=== PATIENT | female | born 1945 | race Caucasian/White ===

== ENCOUNTER 2019-10-30 14:59 | Inpatient (IN) | payer MEDICARE ==
[~2019-10-30] VITALS: Ht 160 cm; Wt 147.0 kg
[2019-10-30 15:05] VITALS: BP 119/74
--- NOTE | 2019-10-30 15:05 | NUR ---
ED Nurse Note: Pt brought in by ambulance from [facility] c/o CP that radiates to left arm/back/neck since this morning. Pt c/o shortness of breath. Albuterol and aspirin given by EMS with no relief. Pt denies n/v. Respirations even and minimall labored on room air. Vitals stable as documented.
--- NOTE | 2019-10-30 15:12 | Emergency Room Report ---
History of Present Illness General Chief Complaint: Chest Pain Source: Patient, EMS Present Illness HPI Is a 74-year-old female presents after increased chest discomfort. Patient gradual onset of symptoms. Reports of increased left-sided shoulder pain as well as increased pain with deep breathing. Had not been vomiting. Reports having chronic nonproductive cough. She states she is a former smoker. Denies any vomiting or diarrhea. Had not been having any shortness of breath increased leg swelling. Patient had been seen at her doctor's office and was brought in by EMS.History of hypothyroid. Patient states he also had a prior history of AVM. She denies any recent fever. Primarily complains of low back pain which is worse with deep breath. Allergies: Coded Allergies: No Known Allergies (Unverified , 10/30/19) Patient History Past Medical History: see triage record Now: No Reviewed Nursing Documentation: PMH: Agreed; PSxH: Agreed Nursing Documentation-PMH Hx Hypertension: Yes - HIGH CHOLESTEROL Review of Systems All Other Systems: negative except mentioned in HPI Physical Exam Vital Signs Date Time Temp Pulse Resp B/P (MAP) Pulse Ox O2 Delivery O2 Flow Rate FiO2 10/30/19 14:50 98.4 100 20 112/70 (84) 98 Room Air Sp02 EP Interpretation: reviewed, normal General Appearance: normal inspection, well appearing, alert, GCS 15, obese, Chronically Ill Head: atraumatic ENT: normal ENT inspection, hearing grossly normal, normal voice Neck: normal inspection, full range of motion, supple, no bony tend Respiratory: normal inspection, no respiratory distress, no retraction, wheezing Cardiovascular #1: normal peripheral pulses, regular rate, rhythm, edema - Trace bilateral pedal Gastrointestinal: normal inspection, normal bowel sounds, non tender, soft, no guarding, no hernia Genitourinary: no CVA tenderness Musculoskeletal: normal inspection, back normal, normal range of motion Neurologic: alert, motor strength/tone normal, oriented x3, responsive, speech normal, normal inspection Psychiatric: normal inspection, judgement/insight normal, mood/affect normal Skin: no rash Medical Decision Making Diagnostic Impression: Primary Impression: Pancreatitis Additional Impressions: Presence of IVC filter Hypothyroid ER Course Patient presented for chest discomfort. Differential diagnosis include was not limited to pulmonary embolism, pneumonia, bronchitis, myocardial infarction among others. Because of complexity of patient's case laboratory tests and imaging studies were ordered.Patient laboratory testing was remarkable for some elevation of the lipase consistent with acute pancreatitis. Patient does have some risk factor for pulmonary embolism and has parent IVC filter. CT imaging read by radiology showed multiple findings see radiology report for full details. Given patient's prior history of intracranial hemorrhage patient will be not started on anticoagulation at this time. Patient was given IV fluids as well as IV pain medications. Dr. Hu was contacted for [facility] for inpatient management due to panel physician. Labs Test 10/30/19 15:30 White Blood Count 15.5 K/UL (4.8-10.8) Red Blood Count 4.80 M/UL (4.20-5.40) Hemoglobin 14.6 G/DL (12.0-16.0) Hematocrit 43.9 % (37.0-47.0) Mean Corpuscular Volume 91 FL (80-99) Mean Corpuscular Hemoglobin 30.4 PG (27.0-31.0) Mean Corpuscular Hemoglobin Concent 33.3 G/DL (32.0-36.0) Red Cell Distribution Width 12.4 % (11.6-14.8) Platelet Count 227 K/UL (150-450) Mean Platelet Volume 8.2 FL (6.5-10.1) Neutrophils (%) (Auto) 81.3 % (45.0-75.0) Lymphocytes (%) (Auto) 10.1 % (20.0-45.0) Monocytes (%) (Auto) 6.3 % (1.0-10.0) Eosinophils (%) (Auto) 1.8 % (0.0-3.0) Basophils (%) (Auto) 0.6 % (0.0-2.0) D-Dimer 1.36 mg/L FEU (0.00-0.49) Sodium Level 141 MMOL/L (136-145) Potassium Level 4.3 MMOL/L (3.5-5.1) Chloride Level 102 MMOL/L (98-107) Carbon Dioxide Level 28 MMOL/L (21-32) Anion Gap 11 mmol/L (5-15) Blood Urea Nitrogen 20 mg/dL (7-18) Creatinine 1.1 MG/DL (0.55-1.30) Estimat Glomerular Filtration Rate 48.5 mL/min (>60) Glucose Level 118 MG/DL (74-106) Calcium Level 9.3 MG/DL (8.5-10.1) Total Bilirubin 0.4 MG/DL (0.2-1.0) Aspartate Amino Transf (AST/SGOT) 17 U/L (15-37) Alanine Aminotransferase (ALT/SGPT) 15 U/L (12-78) Alkaline Phosphatase 103 U/L (46-116) Troponin I 0.010 ng/mL (0.000-0.056) Pro-B-Type Natriuretic Peptide 382 pg/mL (0-125) Total Protein 7.5 G/DL (6.4-8.2) Albumin 3.2 G/DL (3.4-5.0) Globulin 4.3 g/dL Albumin/Globulin Ratio 0.7 (1.0-2.7) Lipase 1064 U/L (73-393) Last Vital Signs Date Time Temp Pulse Resp B/P (MAP) Pulse Ox O2 Delivery O2 Flow Rate FiO2 10/30/19 14:50 98.4 100 20 112/70 (84) 98 Room Air Status: improved Disposition: ADMITTED INPATIENT Condition: Stable Mika Nolan MD Oct 30, 2019 15:12
[2019-10-30] MEDS ORDERED: Albuterol ud Inhalation HHN ONE (15:15)
[2019-10-30] MEDS ORDERED: Aspirin Baby 81mg ORAL ONE (15:30)
[2019-10-30 15:58] LABS: BASOPHILS % (AUTO) 0.6 % (0.0-2.0); EOSINOPHILS % (AUTO) 1.8 % (0.0-3.0); HEMATOCRIT 43.9 % (37.0-47.0); HEMOGLOBIN 14.6 G/DL (12.0-16.0); LYMPHOCYTES % (AUTO) 10.1 % (20.0-45.0); MEAN CORPUSCULAR VOLUME 91 FL (80-99); MONOCYTES % (AUTO) 6.3 % (1.0-10.0); NEUTROPHILS % (AUTO) 81.3 % (45.0-75.0); PLATELET COUNT 227 K/UL (150-450); RED CELL DISTRIBUTION WIDTH 12.4 % (11.6-14.8); WHITE BLOOD COUNT 15.5 K/UL (4.8-10.8)
[2019-10-30 15:59] LABS: ANION GAP 11 mmol/L (5-15); BLOOD UREA NITROGEN 20 mg/dL (7-18); CALCIUM 9.3 MG/DL (8.5-10.1); CARBON DIOXIDE 28 MMOL/L (21-32); CHLORIDE 102 MMOL/L (98-107); CREATININE 1.1 MG/DL (0.55-1.30); POTASSIUM 4.3 MMOL/L (3.5-5.1); SODIUM 141 MMOL/L (136-145)
--- NOTE | 2019-10-30 16:01 | Diagnostic Imaging Report ---
Indication: Chest pain Technique: One view of the chest Comparison: none Findings: The heart is enlarged. There is mild interstitial congestion. No focal airspace consolidation. No definite effusions Impression: . Cardiomegaly. Mild interstitial congestion
[2019-10-30 16:14] LABS: ALANINE AMINOTRANSFERASE 15 U/L (12-78); ALBUMIN 3.2 G/DL (3.4-5.0); ALBUMIN/GLOBULIN RATIO 0.7 (1.0-2.7); ALKALINE PHOSPHATASE 103 U/L (46-116); ASPARTATE AMINO TRANSFERASE 17 U/L (15-37); BILIRUBIN,TOTAL 0.4 MG/DL (0.2-1.0)
[2019-10-30] MEDS ORDERED: Morphine Sulfate 4mg/ml Inj (IV USE ONLY) IVP ONE (16:30)
[2019-10-30] MEDS ORDERED: Omnipaque-300 100ml vial INJ PRN (16:45)
--- NOTE | 2019-10-30 16:56 | NUR ---
ED Nurse Note: Pt in CT
--- NOTE | 2019-10-30 17:16 | NUR ---
ED Nurse Note: Pt started to desaturate on room air to the 70s. Placed pt on 3 L NC --> O2 saturation now 92%.
[2019-10-30] MEDS ORDERED: SYNTHROID75 MCG ORAL (17:20)
[2019-10-30] MEDS ORDERED: ATORVASTATIN CA10 MG ORAL (17:20)
[2019-10-30] MEDS ORDERED: VITAMIN D310 MC1 PO (17:20)
[2019-10-30] MEDS ORDERED: MELOXICAM15 MG PO (17:25)
[2019-10-30] MEDS ORDERED: GABAPENTIN300 MG ORAL (17:25)
[2019-10-30] MEDS ORDERED: CYMBALTA60 MG ORAL (17:25)
[2019-10-30] MEDS ORDERED: IBUPROFEN600 MG ORAL (17:25)
[2019-10-30] MEDS ORDERED: ATORVASTATIN CA20 MG ORAL (17:25)
[2019-10-30] MEDS ORDERED: MYRBETRIQ50 MG PO (17:25)
--- NOTE | 2019-10-30 17:28 | Diagnostic Imaging Report ---
Clinical Indication: Abdominal pain Technique: No oral contrast utilized, per emergency room physician request IV administration nonionic contrast. Venous phase spiral acquisition obtained through the abdomen and pelvis. Multiplanar reconstructions were generated. Total dose length product 1869 mGycm. CTDIvol(s) 34 mGy. Dose reduction achieved using automated exposure control Comparison: none Findings: Numerous large abdominal and pelvic wall and flank collateral veins are demonstrated. There is marked narrowing of the bilateral external iliac arteries, and absence of the bilateral common iliac arteries. There is an inferior vena cava filter. There is absence of the inferior vena cava immediately below the filter. However, the lumen of the inferior vena cava or the filter is is presumably patent, opacified with contrast. There is mild gaseous distention of the sigmoid colon, without evidence of downstream obstruction. The appendix is not definitely identified, but no findings to suggest acute appendicitis are evident. No evidence of colonic diverticulosis or diverticulitis. No small bowel distention. No free or loculated intraperitoneal gas or fluid is evident. The gallbladder is distended. No gallstones. No biliary ductal dilatation. Liver demonstrates minimal fatty infiltration. No focal liver lesions. No biliary ductal dilatation. Pancreas is unremarkable. The spleen demonstrates a granulomatous calcification in the upper pole. The adrenals are hypertrophied. The right adrenal demonstrates a somewhat ill-defined 2.6 x 1.6 cm mass. The left adrenal demonstrates an ill-defined 1.4 x 1.6 cm mass. No retroperitoneal or mesenteric mass or adenopathy. The right kidney is unremarkable. The left kidney demonstrates a complex parapelvic cyst. The uterus is unremarkable. There is a calcification in the left ovary.. The bones are unremarkable except for a bone island in the right femoral head and considerable degenerative spondylosis changes. The heart is enlarged. The tip of a central venous catheter is seen at the cavoatrial junction. The lung bases demonstrate diffuse groundglass opacity. There are also some atelectatic changes. There are mitral annular calcifications. Impression: No acute abnormality Inferior vena cava filter. 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 Extensive abdominal wall collaterals noted. Mild fatty liver Bilateral adrenal masses, possibly adenomas. Consider adrenal protocol MRI for better characterization Cardiomegaly or graft cardiomegaly Basilar groundglass opacities, may reflect pulmonary edema. There are also basilar pulmonary atelectatic changes Incidental findings as noted, including central venous catheter, right femoral head bone island,, left ovarian calcification, evidence of old granulomatous disease within the spleen This agrees with the preliminary interpretation provided overnight by [facility] teleradiology service. The CT scanner at [facility] is accredited by the [employer] and the scans are performed using protocols designed to limit radiation exposure to as low as reasonably achievable to attain images of sufficient resolution adequate for diagnostic evaluation.
[2019-10-30] MEDS ORDERED: Ampicillin/Sulbactam Sod 3 GM in NS 110 ML IVPB ONE (17:45)
[2019-10-30 18:00] VITALS: BP 123/75
[2019-10-30] MEDS ORDERED: Milk of Magnesia 30ml Ud ORAL PRN (18:30)
[2019-10-30] MEDS ORDERED: Miralax 17gm pkt ORAL PRN (18:30)
--- NOTE | 2019-10-30 18:31 | NUR ---
ED Nurse Note: US @ bedside
[2019-10-30] MEDS ORDERED: Pantoprazole Inj IV SCH (19:08)
--- NOTE | 2019-10-30 19:15 | NUR ---
HAND-OFF: Report given to OCSAR Alejandro. Pt is in stable condition; plan of care endorsed.
[2019-10-30 19:16] VITALS: BP 128/80
--- NOTE | 2019-10-30 19:16 | NUR ---
ED Nurse Note: Received report from Helen MOORE. Pt alert and oriented, able to walk with walker to the restroom.
[2019-10-30] MEDS ORDERED: Albuterol/Ipratropium 3ml neb HHN PRN (19:45)
[2019-10-30] MEDS ORDERED: Omnipaque 350 100ml vial INJ PRN (19:45)
--- NOTE | 2019-10-30 19:50 | History and Physical ---
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 The pain is centrally located worse with breathing. She is tachypneic due to the pain but not short of breath. She denies any orthopnea or lower extremity swelling. She has never had this type of pain before. She states that the pain radiates to her back. She denies any alcohol use recent trauma. In the ER the patient afebrile with pulse up to 100 respirations in 20s, blood pressure normotensive, saturating 99% on 3 L nasal cannula. CBC showed WBC 15.5 lipase elevated to 1064. Chemistry showed normal LFTs and alk phos. Initial troponin negative. EKG showed normal sinus rhythm with prolonged QTC ( 490), d-dimer positive. Chest x-ray showed possible pulmonary edema. BNP showed 382. CT abdomen showed bilateral adrenal adenomas, constipation, calcified cystic lesion of the left ovary recommending further ultrasound. Abdominal ultrasound right upper quadrant negative for cholecystitis. But did have positive Robins sign. Allergies none Past medical history see HPI Medications Lipitor, Synthroid 75 mcg, Cymbalta, gabapentin Surgical history left salivary gland cyst removal Social history denies tobacco alcohol or drug use Family history pancreatic cancer of her mother Allergies: Coded Allergies: No Known Allergies (Unverified , 10/30/19) Medication History Scheduled Atorvastatin Calcium* (Lipitor*), Unknown Dose ORAL BEDTIME, (Reported) Atorvastatin Calcium* (Atorvastatin Calcium*), 20 MG ORAL BEDTIME, (Reported) Cholecalciferol (Vitamin D3) (Vitamin D3), Unknown Dose PO DAILY, (Reported) Duloxetine Hcl* (Cymbalta*), 60 MG ORAL DAILY, (Reported) Levothyroxine Sodium* (Synthroid*), 100 MCG ORAL DAILY, (Reported) Meloxicam* (Meloxicam*), 15 MG PO DAILY, (Reported) Miscellaneous Medications Gabapentin* (Gabapentin*), 300 MG ORAL, (Reported) Ibuprofen* (Motrin*), 600 MG ORAL, (Reported) Mirabegron (Myrbetriq), 50 MG PO, (Reported) Patient History Healthcare decision maker n Resuscitation status Advanced Directive on File Review of Systems All Other Systems: negative except mentioned in HPI - Endorses pleuritic chest pain, tachypnea, back pain. Physical Exam Physical Exam Narrative General: WDWN female in NAD, A&O x 4 HEENT: Normocephalic cephalic atraumatic, pupils equal round reactive to light and accommodation, nares patent and no symmetrical, no tonsillar exudates, mucous membranes moist CV: Regular rate regular rhythm, no murmurs, rubs, or gallops Pulm: Lungs clear to auscultation bilaterally. No wheezes, rhonchi, or rales. Tachypnea GI: Soft, nontender, nondistended, bowel sounds present Neuro: CN 2-12 intact bilaterally, no focal signs. Ext: Trace lower extremity edema bilaterally Skin: no rashes lesions or ulcers Msk: Joints symmetrical in upper extremity and lower extremity bilaterally, no joint swelling. Lymph: No lymphadenopathy in upper extremity and lower extremity Last 24 Hour Vital Signs Date Time Temp Pulse Resp B/P (MAP) Pulse Ox O2 Delivery O2 Flow Rate FiO2 10/30/19 18:00 98.0 85 27 123/75 95 Nasal Cannula 3.0 10/30/19 15:35 82 27 Room Air 21 10/30/19 15:28 75 19 100 Room Air 21 82 27 92 10/30/19 15:05 98.2 82 20 119/74 98 Room Air 10/30/19 14:50 98.4 100 20 112/70 (84) 98 Room Air Laboratory Tests Test 10/30/19 15:30 White Blood Count 15.5 K/UL (4.8-10.8) H Red Blood Count 4.80 M/UL (4.20-5.40) Hemoglobin 14.6 G/DL (12.0-16.0) Hematocrit 43.9 % (37.0-47.0) Mean Corpuscular Volume 91 FL (80-99) Mean Corpuscular Hemoglobin 30.4 PG (27.0-31.0) Mean Corpuscular Hemoglobin Concent 33.3 G/DL (32.0-36.0) Red Cell Distribution Width 12.4 % (11.6-14.8) Platelet Count 227 K/UL (150-450) Mean Platelet Volume 8.2 FL (6.5-10.1) Neutrophils (%) (Auto) 81.3 % (45.0-75.0) H Lymphocytes (%) (Auto) 10.1 % (20.0-45.0) L Monocytes (%) (Auto) 6.3 % (1.0-10.0) Eosinophils (%) (Auto) 1.8 % (0.0-3.0) Basophils (%) (Auto) 0.6 % (0.0-2.0) D-Dimer 1.36 mg/L FEU (0.00-0.49) H Sodium Level 141 MMOL/L (136-145) Potassium Level 4.3 MMOL/L (3.5-5.1) Chloride Level 102 MMOL/L (98-107) Carbon Dioxide Level 28 MMOL/L (21-32) Anion Gap 11 mmol/L (5-15) Blood Urea Nitrogen 20 mg/dL (7-18) H Creatinine 1.1 MG/DL (0.55-1.30) Estimat Glomerular Filtration Rate 48.5 mL/min (>60) Glucose Level 118 MG/DL (74-106) H Calcium Level 9.3 MG/DL (8.5-10.1) Total Bilirubin 0.4 MG/DL (0.2-1.0) Aspartate Amino Transf (AST/SGOT) 17 U/L (15-37) Alanine Aminotransferase (ALT/SGPT) 15 U/L (12-78) Alkaline Phosphatase 103 U/L (46-116) Troponin I 0.010 ng/mL (0.000-0.056) Pro-B-Type Natriuretic Peptide 382 pg/mL (0-125) H Total Protein 7.5 G/DL (6.4-8.2) Albumin 3.2 G/DL (3.4-5.0) L Globulin 4.3 g/dL Albumin/Globulin Ratio 0.7 (1.0-2.7) L Lipase 1064 U/L (73-393) H Microbiology Date/Time Source Procedure Growth Status 10/30/19 15:30 Nasal Nares - Final Complete 10/30/19 15:30 Nasal Nares - Final Complete Height (Feet): 5 Height (Inches): 3.00 Weight (Pounds): 325 Medications Current Medications Medications (Trade) Dose Ordered Sig/Cecily Route PRN Reason Start Time Stop Time Status Last Admin Dose Admin Albuterol/ Ipratropium (Albuterol/ Ipratropium) 3 ml Q6HRT PRN HHN wheezing/SOB 10/30/19 19:45 11/04/19 19:44 UNV Bisacodyl (Dulcolax) 10 mg HSPRN PRN RECTAL Constipation 10/30/19 18:30 11/29/19 18:29 Dextrose (Dextrose 50%) 25 ml Q30M PRN IV Hypoglycemia 10/30/19 18:30 11/29/19 18:29 Dextrose (Dextrose 50%) 50 ml Q30M PRN IV Hypoglycemia 10/30/19 18:30 11/29/19 18:29 Docusate Sodium (Colace) 100 mg EVERY 12 HOURS ORAL 10/30/19 21:00 11/29/19 20:59 Heparin Sodium (Porcine) (Heparin 5000 units/ml) 5,000 units EVERY 8 HOURS SUBQ 10/30/19 22:00 11/29/19 21:59 Insulin Aspart (NovoLOG) BEFORE MEALS AND HS SUBQ 10/30/19 21:00 11/29/19 20:59 Iohexol (OMNIPAQUE-300 100ml) 100 ml NOW PRN INJ Radiology Procedure 10/30/19 16:45 11/01/19 16:32 Iohexol (Omnipaque 350 100ml) 100 ml NOW PRN INJ Radiology Procedure 10/30/19 19:45 11/01/19 19:41 UNV Magnesium Hydroxide (Mom) 30 ml HSPRN PRN ORAL Constipation 10/30/19 18:30 11/29/19 18:29 Pantoprazole (Protonix) 40 mg DAILY IV 10/30/19 19:08 11/29/19 19:07 Piperacillin Sod/ Tazobactam Sod 3.375 gm/Sodium Chloride 110 ml @ 27.5 mls/hr EVERY 8 HOURS IVPB 10/30/19 22:00 11/06/19 21:59 UNV Polyethylene Glycol (Miralax) 17 gm HSPRN PRN ORAL Constipation 10/30/19 18:30 11/29/19 18:29 Prochlorperazine (Compazine) 10 mg Q6H PRN IVP Nausea & Vomiting 10/30/19 18:30 11/29/19 18:29 Sodium Chloride 1,000 ml @ 100 mls/hr Q10H IV 10/30/19 19:45 11/29/19 19:44 UNV Assessment/Plan Assessment/Plan: This Is a 74-year-old female with a past medical history of hypothyroidism, AVM of brain, ICH secondary to AVM, gallstones who presents with pleuritic chest pain radiating to her back for 1 day. Found to have pancreatitis as well as left moderate hydronephrosis of kidney #Pleuritic chest pain, unclear etiology. Rule out ACS, and pulmonary embolism. Could be referred pain from pancreas or gallbladder. Doubt pneumonia #Pancreatitis, unclear etiology. Denies history of alcohol use and abdominal ultrasound negative for gallstones or cholecystitis. #Family history of pancreatic cancer #Acute hypoxic respiratory failure (Tachypnea) secondary to pulmonary edema #Sirs (WBC, tachypnea), no source at this time. Could be 2/2 pancreatitis -Telemetry -Trend troponins -2D echocardiogram -CT pulmonary angiogram to rule out PE -Consider cardiology consult -GI consult for pancreatitis: Dr. Hermosillo -Surgery consult for abdominal pain/referred chest pain and cholecystitis: Dr. Webster -Gentle IV fluids -Zosyn (10/30 - ) -Blood cultures x2 #Moderate hydronephrosis of left kidney of uncertain etiology #0.4 cm nonobstructing lower pole left kidney stone -urology consult: Dr. Bedolla -Trend creatinine -IV fluidsPatient as above -Consider low-dose renal stone protocol CT #Hypothyroidism -Continue home Synthroid #History of ICH secondary to AVM #History of AVM of brain #History of DVT status post IVC filter due to contraindication for anticoagulation #Absolute contraindication to any further anticoagulation. Discussed with patient. -Venous duplex ultrasound bilateral to confirm if any new DVTs #Bilateral adrenal adenomas -Endocrinology consult #Morbid obesity -Patient counseled patient on weight loss DVT prophylaxis: Unclear if patient able to be on heparin subcu. Will order SCDs pending venous duplex ultrasound Code status: Full but no prolonged intubation 73 minutes spent on this encounter. Discussed with RN, GI, Surgery, Urology. > 50% spent on counseling and care coordination. Time of note may not reflect time patient was seen. Luis Godoy D.O. Oct 30, 2019 19:50
--- NOTE | 2019-10-30 19:51 | NUR ---
ED Nurse Note: Report given to Israel MOORE.
--- NOTE | 2019-10-30 19:52 | General Progress Note ---
Subjective Allergies: Coded Allergies: No Known Allergies (Unverified , 10/30/19) Objective Last 24 Hour Vital Signs Date Time Temp Pulse Resp B/P (MAP) Pulse Ox O2 Delivery O2 Flow Rate FiO2 10/30/19 18:00 98.0 85 27 123/75 95 Nasal Cannula 3.0 10/30/19 15:35 82 27 Room Air 21 10/30/19 15:28 75 19 100 Room Air 21 82 27 92 10/30/19 15:05 98.2 82 20 119/74 98 Room Air 10/30/19 14:50 98.4 100 20 112/70 (84) 98 Room Air Laboratory Tests 10/30/19 15:30: White Blood Count 15.5H, Red Blood Count 4.80, Hemoglobin 14.6, Hematocrit 43.9 , Mean Corpuscular Volume 91, Mean Corpuscular Hemoglobin 30.4, Mean Corpuscular Hemoglobin Concent 33.3, Red Cell Distribution Width 12.4, Platelet Count 227, Mean Platelet Volume 8.2, Neutrophils (%) (Auto) 81.3H, Lymphocytes ( %) (Auto) 10.1L, Monocytes (%) (Auto) 6.3, Eosinophils (%) (Auto) 1.8, Basophils (%) (Auto) 0.6, D-Dimer 1.36H, Sodium Level 141, Potassium Level 4.3, Chloride Level 102, Carbon Dioxide Level 28, Anion Gap 11, Blood Urea Nitrogen 20H, Creatinine 1.1, Estimat Glomerular Filtration Rate 48.5, Glucose Level 118H , Calcium Level 9.3, Total Bilirubin 0.4, Aspartate Amino Transf (AST/SGOT) 17, Alanine Aminotransferase (ALT/SGPT) 15, Alkaline Phosphatase 103, Troponin I 0.010, Pro-B-Type Natriuretic Peptide 382H, Total Protein 7.5, Albumin 3.2L, Globulin 4.3, Albumin/Globulin Ratio 0.7L, Lipase 1064H Height (Feet): 5 Height (Inches): 3.00 Weight (Pounds): 325 Luis Godoy D.O. Oct 30, 2019 19:52
[2019-10-30 19:55] VITALS: BP 121/73
--- NOTE | 2019-10-30 19:55 | NUR ---
TRANSFER TO FLOOR: Patient transferred to SDU. Report given to Israel RN. Pt alert and oriented, verbally responsive. Ambulatory with cane. Not in any distress. No SOB. With O2 @3L/min via nc. Sinus rhythm. IV line on left hand 20g patent and intact. Med recon done. Belongings list done. All belongings sent with the patient. Family member aware of the transfer.
--- NOTE | 2019-10-30 19:55 | NUR ---
NURSE NOTES: INSTRUMENT AND CONTROL SERVICE PERSON Yessica called to give report. awaiting pt arrival to SDU unit.
[2019-10-30 20:00] VITALS: BP 130/63
--- NOTE | 2019-10-30 20:10 | NUR ---
NURSE NOTES: pt arrived to unit. pt is alert and oriented times 4, able to follow commands. pt is on 3 L NC, able to sat at 100%. no acute resp distress noted. 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 pt bed is low, locked, armed, call light within reach, red rails up times 3. will establish plan of care. belongings by bed side.
--- NOTE | 2019-10-30 20:23 | Diagnostic Imaging Report ---
Indication: 74-year-old female with pelvic pain TECHNIQUE: Real-time grayscale imaging of the pelvis performed with transabdominal and endovaginal technique utilized. Comparison: None Findings: Neither ovary is seen. The uterus is heterogeneous. Endometrium is about 1.7 cm which is moderately thickened. ENTRY LEVEL SALES ASSOCIATE consultation is needed. Further evaluation of this with hysteroscopy may be indicated. There is no free fluid. IMPRESSION: Abnormal endometrium in a postmenopausal female. Neoplasm is not excluded. Clinical evaluation is recommended.
--- NOTE | 2019-10-30 20:29 | Diagnostic Imaging Report ---
Indication: Abnormal renal function tests, abnormal lipase Technique: Dao-scale and duplex images of the upper abdomen were obtained Comparison: Reference made to abdomen pelvis CT of earlier the same day Findings: Gallbladder is distended, without stones, wall thickening, nor pericholecystic fluid. Sonographic Robins's sign is negative. Common bile duct measures 5 mm in diameter. No intrahepatic biliary it . Ductal dilatation. Liver demonstrates diffusely increased echogenicity, consistent with diffuse hepatocellular disease, most likely fatty change. It is somewhat enlarged. Portal vein and hepatic veins are patent. Pancreas is unremarkable. Spleen is unremarkable. Left kidney measures 8.9 cm in length. Right kidney measures 9.9 cm length. Both kidneys demonstrate normal echogenicity. The left kidney is poorly visualized. It demonstrates what appears to be hydronephrosis, but on earlier CT scan is demonstrated to be one or more parapelvic cysts.. Demonstrates an echogenic focus in the left renal sinus which is presumably artifactual as no calculi are demonstrated on earlier CT scan. Abdominal aorta is partially obscured by bowel gas, visualized portions are non-aneurysmal . Impression: Negative for gallstones or dilated bile ducts Enlarged fatty liver Left renal parapelvic cysts Note nonvisualization of portions of the abdominal aorta
[2019-10-30] MEDS ORDERED: Docusate 100mg cap ORAL SCH (21:00)
[2019-10-30] MEDS: NovoLOG Insulin Flexpen SUBQ SCH (21:00)
[2019-10-30] MEDS: Docusate 100mg cap ORAL SCH (21:51)
[2019-10-30] MEDS: Pantoprazole Inj IV SCH (21:51)
[2019-10-30] MEDS ORDERED: Heparin 5000 units/ml inj SUBQ SCH (22:00)
[2019-10-30] MEDS: Piperacillin/Tazobactam 3.375 GM in NS 110 ML IVPB SCH (22:07)
[2019-10-31] VITALS: BP 145/75
[2019-10-31 04:00] VITALS: BP 125/92
[2019-10-31] MEDS: NovoLOG Insulin Flexpen SUBQ SCH ×4 (05:47→20:40)
[2019-10-31] MEDS: Piperacillin/Tazobactam 3.375 GM in NS 110 ML IVPB SCH ×3 (05:52→22:01)
--- NOTE | 2019-10-31 07:05 | NUR ---
HAND-OFF: Report given to Slime Olivas RN SDU. Pt remains stable.
--- NOTE | 2019-10-31 07:07 | NUR ---
NURSE NOTES: Received report from Israel Rodriguez RN. Observed patient in bed, asleep, opens eyes spontaneously, able to make needs known. Patient is receiving oxygen 3LPM via NC, no respiratory distress noted. Left hand 22g IV intact, patent, and asymptomatic with IV fluids running at prescribed rate. Patient remains NPO at this time. Patient denies pain/discomfort at this time. Bed locked, alarmed, and in lowest position, side rails up x3, and call light left within reach. Instructed to call for assistance, verbalized understanding. Will continue plan of care and will continue to monitor patient.
[2019-10-31 07:33] LABS: BASOPHILS % (AUTO) 1.5 % (0.0-2.0); EOSINOPHILS % (AUTO) 2.9 % (0.0-3.0); HEMOGLOBIN 13.4 G/DL (12.0-16.0); LYMPHOCYTES % (AUTO) 15.3 % (20.0-45.0); MEAN CORPUSCULAR VOLUME 94 FL (80-99); MONOCYTES % (AUTO) 7.2 % (1.0-10.0); PLATELET COUNT 245 K/UL (150-450); RED BLOOD COUNT 4.36 M/UL (4.20-5.40); WHITE BLOOD COUNT 10.8 K/UL (4.8-10.8)
[2019-10-31 08:00] VITALS: BP 127/66
[2019-10-31] MEDS: Docusate 100mg cap ORAL SCH ×2 (08:11→20:35)
[2019-10-31] MEDS: Pantoprazole Inj IV SCH (08:12)
[2019-10-31 08:16] LABS: ALANINE AMINOTRANSFERASE 18 U/L (12-78); ALBUMIN 3.1 G/DL (3.4-5.0); ALBUMIN/GLOBULIN RATIO 0.8 (1.0-2.7); ALKALINE PHOSPHATASE 103 U/L (46-116); ANION GAP 7 mmol/L (5-15); ASPARTATE AMINO TRANSFERASE 17 U/L (15-37); BILIRUBIN,TOTAL 0.5 MG/DL (0.2-1.0); BLOOD UREA NITROGEN 19 mg/dL (7-18); CALCIUM 8.9 MG/DL (8.5-10.1); CARBON DIOXIDE 31 MMOL/L (21-32); CHLORIDE 103 MMOL/L (98-107); CHOLESTEROL 154 MG/DL (< 200); CREATININE 1.3 MG/DL (0.55-1.30); HDL CHOLESTEROL 55 MG/DL (40-60); POTASSIUM 5.1 MMOL/L (3.5-5.1); SODIUM 141 MMOL/L (136-145); TRIGLYCERIDES 97 MG/DL (30-150)
--- NOTE | 2019-10-31 08:20 | NUR ---
NURSE NOTES: 2D echo at bedside.
--- NOTE | 2019-10-31 09:26 | NUR ---
NURSE NOTES: Venous duplex at bedside.
--- NOTE | 2019-10-31 10:16 | NUR ---
NURSE NOTES: Dr Godoy present at bedside, notified and made aware of Venous Duplex results.
--- NOTE | 2019-10-31 11:04 | Diagnostic Imaging Report ---
Indication: Lower extremity edema, chest pain and back pain Technique: Grayscale and duplex images of the bilateral lower extremity veins Comparison: none Findings: Examined technique somewhat limited due to patient body habitus. On the left, thrombus is seen within the superficial femoral and popliteal veins. This results in diminished blood flow and noncompressibility. The calf veins could not be well visualized. The greater saphenous vein is patent. On the right, grayscale and duplex images demonstrate no evidence of intraluminal thrombus. Normal phasic Doppler waveforms, demonstrating normal augmentation response and no evidence of valvular insufficiency. Patent greater saphenous vein and calf veins. Impression: Positive for acute left femoral vein deep venous thrombosis
--- NOTE | 2019-10-31 11:10 | NUR ---
NURSE NOTES: Patient refused right leg SCD. Will continue to monitor.
[2019-10-31 12:00] VITALS: BP 129/65
--- NOTE | 2019-10-31 12:29 | Diagnostic Imaging Report ---
ndication: Shortness of breath Technique: IV administration nonionic contrast. Spiral acquisitions obtained from the lung bases to the lung apices. Multiplanar and 3-D reconstructions were generated. Total dose length product 1159 mGycm. CTDIvol(s) one, 35, 29 mGy. Dose reduction achieved using automated exposure control Comparison: none Findings: There is some image degradation due to motion artifact. This limits evaluation of the distal vessels. Pulmonary arteries are well-opacified. No definite intraluminal filling defects or other abnormality to suggest acute pulmonary embolus. The main pulmonary artery is ectatic, at 36 mm diameter, and the bilateral main pulmonary arteries are frankly dilated, each measuring 30 mm in diameter. No evidence of right ventricular dilatation. The heart is enlarged. No evidence of thoracic aortic aneurysm or dissection. Normal caliber and branching anatomy of the great neck vessels. Normal caliber of the proximal upper abdominal visceral vessels. The azygos vein is markedly enlarged and there are chest wall varicosities. This is presumably related to the inferior vena cava occlusion demonstrated on previous day's abdomen pelvis CT The lungs demonstrate fairly extensive diffuse groundglass opacity bilaterally. There is also mild interstitial septal thickening and basilar posterior dependent pulmonary atelectatic changes. No dense consolidation. No pleural fluid is evident. There is a tiny calcified subpleural nodule in the right upper lobe. No pericardial effusion. No mediastinal or hilar mass or adenopathy. There are calcifications within several mediastinal lymph nodes as well as within right hilar nodes. The included portion of the thyroid is unremarkable. No axillary or chest wall mass or adenopathy. There are degenerative changes of the thoracic spine. The upper abdominal anatomy is described on previous day's abdomen pelvis CT. Impression: Limited assessment of the pulmonary arteries, due to motion artifact limiting visualization of the distal vessels. No gross large vessel central pulmonary emboli demonstrated. Dilated right and left main pulmonary arteries, suspicious for pulmonary arterial hypertension Mild cardiomegaly Bilateral pulmonary parenchymal diffuse groundglass opacity, mild interstitial septal thickening. 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
--- NOTE | 2019-10-31 12:47 | Consultation ---
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 The pain is centrally located worse with breathing. She is tachypneic due to the pain but not short of breath. She denies any orthopnea or lower extremity swelling. She has never had this type of pain before. She states that the pain radiates to her back. She denies any alcohol use recent trauma. In the ER the patient afebrile with pulse up to 100 respirations in 20s, blood pressure normotensive, saturating 99% on 3 L nasal cannula. CBC showed WBC 15.5 lipase elevated to 1064. Chemistry showed normal LFTs and alk phos. Initial troponin negative. EKG showed normal sinus rhythm with prolonged QTC (490), d-dimer positive. Chest x-ray showed possible pulmonary edema. BNP showed 382. CT abdomen showed bilateral adrenal adenomas, constipation, calcified cystic lesion of the left ovary recommending further ultrasound. Abdominal ultrasound right upper quadrant negative for cholecystitis. But did have positive Robins sign. Surgery was called to evaluate and assist with care. Patient seen, patient [place], chart reviewed. Patient states she does not have any abdominal pain today is passing flatus feels okay but does occasionally have some pleuritic chest pain on deep inspiration. Allergies: Coded Allergies: No Known Allergies (Unverified , 10/30/19) Medication History Scheduled Atorvastatin Calcium* (Lipitor*), Unknown Dose ORAL BEDTIME, (Reported) Atorvastatin Calcium* (Atorvastatin Calcium*), 20 MG ORAL BEDTIME, (Reported) Cholecalciferol (Vitamin D3) (Vitamin D3), Unknown Dose PO DAILY, (Reported) Duloxetine Hcl* (Cymbalta*), 60 MG ORAL DAILY, (Reported) Levothyroxine Sodium* (Synthroid*), 100 MCG ORAL DAILY, (Reported) Meloxicam* (Meloxicam*), 15 MG PO DAILY, (Reported) Miscellaneous Medications Gabapentin* (Gabapentin*), 300 MG ORAL, (Reported) Ibuprofen* (Motrin*), 600 MG ORAL, (Reported) Mirabegron (Myrbetriq), 50 MG PO, (Reported) Patient History History Provided By: Patient, Medical Record, PMD Healthcare decision maker CHARISMA DAUGHTER Resuscitation status Full Code Advanced Directive on File No Past Medical/Surgical History Past Medical/Surgical History: (1) Acute respiratory failure (2) Pancreatitis (3) Pancreatitis (4) Presence of IVC filter (5) Hypothyroid (6) History of DVT (deep vein thrombosis) (7) History of arteriovenous malformation (AVM) (8) Hypothyroidism (9) Morbid obesity Review of Systems Review of Symptoms General ROS: no weight loss or fever Psychological ROS: no depression or mood changes, no memory loss Ophthalmic ROS: no visual changes or eye irritation ENT ROS: no nasal congestion, hearing loss, dizziness Allergy and Immunology ROS: no allergic symptoms or urticaria Hematological and Lymphatic ROS: no swollen glands, unusual bleeding or bruising Endocrine ROS: no polyuria, polydipsia, weight changes, temperature intolerance Respiratory ROS: no cough, shortness of breath, or wheezing pleuritic chest pain on deep inspiration Cardiovascular ROS: chest pain or dyspnea on exertion Gastrointestinal ROS: denies abdominal pain, bright red blood in stool. Musculoskeletal ROS: no myalgias or arthralgias Neurological ROS: no TIA or stroke symptoms Dermatological ROS: no new or changing skin lesions, rashes or pruritis Physical Exam Physical Exam General appearance: alert, cooperative, no distress, appears stated age Head: Normocephalic, without obvious abnormality, atraumatic Eyes: conjunctivae/corneas clear. PERRL, EOM's intact. Fundi benign Throat: Lips, mucosa, and tongue normal. Teeth and gums normal Neck: supple, symmetrical, trachea midline, no adenopathy, thyroid: not enlarged, symmetric, no tenderness/mass/nodules, no carotid bruit and no JVD Lungs: clear to auscultation bilaterally Heart: regular rate and rhythm, S1, S2 normal, no murmur, click, rub or gallop Abdomen: soft, non-tender. Bowel sounds normal. No masses, no organomegaly very obese no central catheter could be identified Extremities: extremities normal, atraumatic, no cyanosis or edema Pulses: 2+ and symmetric Skin: Skin color, texture, turgor normal. No rashes or lesions Neurologic: Grossly normal Last 24 Hour Vital Signs Date Time Temp Pulse Resp B/P (MAP) Pulse Ox O2 Delivery O2 Flow Rate FiO2 2/20/20 12:00 3.0 10/31/19 12:00 Nasal Cannula 3.0 10/31/19 08:00 99.7 84 21 127/66 95 Nasal Cannula 3.0 10/31/19 08:00 Nasal Cannula 3.0 10/31/19 08:00 3.0 10/31/19 07:39 99 10/31/19 04:00 3.0 10/31/19 04:00 Nasal Cannula 3.0 10/31/19 04:00 99.3 96 20 125/92 99 3.0 10/31/19 00:29 Nasal Cannula 3.0 10/31/19 00:00 100 10/31/19 00:00 98.1 100 20 145/75 100 3.0 10/30/19 20:00 103 10/30/19 20:00 98.1 99 24 130/63 94 3.0 10/30/19 20:00 Nasal Cannula 3.0 10/30/19 19:55 98.5 81 19 121/73 99 Nasal Cannula 3.0 21 10/30/19 19:55 98.5 81 19 121/73 99 Nasal Cannula 3.0 21 10/30/19 19:16 97.9 76 22 128/80 98 Nasal Cannula 3.0 21 10/30/19 18:00 98.0 85 27 123/75 95 Nasal Cannula 3.0 10/30/19 15:35 82 27 Room Air 21 10/30/19 15:28 75 19 100 Room Air 21 82 27 92 10/30/19 15:05 98.2 82 20 119/74 98 Room Air 10/30/19 14:50 98.4 100 20 112/70 (84) 98 Room Air Intake and Output 10/30/19 10/31/19 19:00 07:00 Intake Total 1110 ml 565.0 ml Balance 1110 ml 565.0 ml Intake Oral 0 ml IV Total 1110 ml 565.0 ml # Bowel Movements 2 Laboratory Tests Test 10/30/19 15:30 10/31/19 00:55 10/31/19 06:57 White Blood Count 15.5 K/UL (4.8-10.8) H 10.8 K/UL (4.8-10.8) Red Blood Count 4.80 M/UL (4.20-5.40) 4.36 M/UL (4.20-5.40) Hemoglobin 14.6 G/DL (12.0-16.0) 13.4 G/DL (12.0-16.0) Hematocrit 43.9 % (37.0-47.0) 41.0 % (37.0-47.0) Mean Corpuscular Volume 91 FL (80-99) 94 FL (80-99) Mean Corpuscular Hemoglobin 30.4 PG (27.0-31.0) 30.7 PG (27.0-31.0) Mean Corpuscular Hemoglobin Concent 33.3 G/DL (32.0-36.0) 32.6 G/DL (32.0-36.0) Red Cell Distribution Width 12.4 % (11.6-14.8) 13.0 % (11.6-14.8) Platelet Count 227 K/UL (150-450) 245 K/UL (150-450) Mean Platelet Volume 8.2 FL (6.5-10.1) 8.1 FL (6.5-10.1) Neutrophils (%) (Auto) 81.3 % (45.0-75.0) H 73.0 % (45.0-75.0) Lymphocytes (%) (Auto) 10.1 % (20.0-45.0) L 15.3 % (20.0-45.0) L Monocytes (%) (Auto) 6.3 % (1.0-10.0) 7.2 % (1.0-10.0) Eosinophils (%) (Auto) 1.8 % (0.0-3.0) 2.9 % (0.0-3.0) Basophils (%) (Auto) 0.6 % (0.0-2.0) 1.5 % (0.0-2.0) D-Dimer 1.36 mg/L FEU (0.00-0.49) H Sodium Level 141 MMOL/L (136-145) 141 MMOL/L (136-145) Potassium Level 4.3 MMOL/L (3.5-5.1) 5.1 MMOL/L (3.5-5.1) Chloride Level 102 MMOL/L (98-107) 103 MMOL/L (98-107) Carbon Dioxide Level 28 MMOL/L (21-32) 31 MMOL/L (21-32) Anion Gap 11 mmol/L (5-15) 7 mmol/L (5-15) Blood Urea Nitrogen 20 mg/dL (7-18) H 19 mg/dL (7-18) H Creatinine 1.1 MG/DL (0.55-1.30) 1.3 MG/DL (0.55-1.30) Estimat Glomerular Filtration Rate 48.5 mL/min (>60) 39.9 mL/min (>60) Glucose Level 118 MG/DL (74-106) H 117 MG/DL (74-106) H Calcium Level 9.3 MG/DL (8.5-10.1) 8.9 MG/DL (8.5-10.1) Total Bilirubin 0.4 MG/DL (0.2-1.0) 0.5 MG/DL (0.2-1.0) Aspartate Amino Transf (AST/SGOT) 17 U/L (15-37) 17 U/L (15-37) Alanine Aminotransferase (ALT/SGPT) 15 U/L (12-78) 18 U/L (12-78) Alkaline Phosphatase 103 U/L (46-116) 103 U/L (46-116) Troponin I 0.010 ng/mL (0.000-0.056) 0.006 ng/mL (0.000-0.056) 0.000 ng/mL (0.000-0.056) Pro-B-Type Natriuretic Peptide 382 pg/mL (0-125) H Total Protein 7.5 G/DL (6.4-8.2) 7.1 G/DL (6.4-8.2) Albumin 3.2 G/DL (3.4-5.0) L 3.1 G/DL (3.4-5.0) L Globulin 4.3 g/dL 4.0 g/dL Albumin/Globulin Ratio 0.7 (1.0-2.7) L 0.8 (1.0-2.7) L Lipase 1064 U/L (73-393) H Hemoglobin A1c 6.0 % (4.3-6.0) Magnesium Level 2.2 MG/DL (1.8-2.4) Triglycerides Level 97 MG/DL (30-150) Cholesterol Level 154 MG/DL (< 200) LDL Cholesterol 83 mg/dL (<100) HDL Cholesterol 55 MG/DL (40-60) Cholesterol/HDL Ratio 2.8 (3.3-4.4) L Thyroid Stimulating Hormone (TSH) 2.839 uiU/mL (0.358-3.740) Microbiology Date/Time Source Procedure Growth Status 10/30/19 15:30 Nasal Nares - Final Complete 10/30/19 15:30 Nasal Nares - Final Complete Height (Feet): 5 Height (Inches): 3.00 Weight (Pounds): 325 Medications Current Medications Medications (Trade) Dose Ordered Sig/Cecily Route PRN Reason Start Time Stop Time Status Last Admin Dose Admin Albuterol/ Ipratropium (Albuterol/ Ipratropium) 3 ml Q6H PRN HHN wheezing/SOB 10/30/19 19:45 11/04/19 19:44 Bisacodyl (Dulcolax) 10 mg HSPRN PRN RECTAL Constipation 10/30/19 18:30 11/29/19 18:29 Dextrose (Dextrose 50%) 25 ml Q30M PRN IV Hypoglycemia 10/30/19 18:30 11/29/19 18:29 Dextrose (Dextrose 50%) 50 ml Q30M PRN IV Hypoglycemia 10/30/19 18:30 11/29/19 18:29 Docusate Sodium (Colace) 100 mg EVERY 12 HOURS ORAL 10/30/19 22:00 11/29/19 21:59 10/30/19 21:51 Insulin Aspart (NovoLOG) BEFORE MEALS AND HS SUBQ 10/30/19 21:00 11/29/19 20:59 Iohexol (OMNIPAQUE-300 100ml) 100 ml NOW PRN INJ Radiology Procedure 10/30/19 16:45 11/01/19 16:32 Iohexol (Omnipaque 350 100ml) 100 ml NOW PRN INJ Radiology Procedure 10/30/19 19:45 11/01/19 19:41 Magnesium Hydroxide (Mom) 30 ml HSPRN PRN ORAL Constipation 10/30/19 18:30 11/29/19 18:29 Pantoprazole (Protonix) 40 mg DAILY IV 10/30/19 22:00 11/29/19 21:59 10/31/19 08:12 Piperacillin Sod/ Tazobactam Sod 3.375 gm/Sodium Chloride 110 ml @ 27.5 mls/hr EVERY 8 HOURS IVPB 10/30/19 22:00 11/06/19 21:59 10/31/19 05:52 Polyethylene Glycol (Miralax) 17 gm HSPRN PRN ORAL Constipation 10/30/19 18:30 11/29/19 18:29 Prochlorperazine (Compazine) 10 mg Q6H PRN IVP Nausea & Vomiting 10/30/19 18:30 11/29/19 18:29 Sodium Chloride 1,000 ml @ 50 mls/hr Q20H IV 10/31/19 19:45 11/30/19 19:44 10/31/19 08:14 Assessment/Plan Problem List: (1) Pancreatitis Assessment & Plan: 74-year-old male with pancreatitis potentially believed to be related to biliary source. Biliary imaging reviewed as well as CT and unlikely. Pancreatitis potential related to medications or lipids. No acute surgical intervention indicated recommended. Will follow with recommendations. Thank you for let me participate in patient's care. Trend labs. Okay for diet. Patient currently asymptomatic from pancreatitis and chemical only. Findings: Gallbladder is distended, without stones, wall thickening, nor pericholecystic fluid. Sonographic Robins's sign is negative. Common bile duct measures 5 mm in diameter. No intrahepatic biliary it . Ductal dilatation. Liver demonstrates diffusely increased echogenicity, consistent with diffuse hepatocellular disease, most likely fatty change. It is somewhat enlarged. Portal vein and hepatic veins are patent. Pancreas is unremarkable. Spleen is unremarkable. Left kidney measures 8.9 cm in length. Right kidney measures 9.9 cm length. Both kidneys demonstrate normal echogenicity. The left kidney is poorly visualized. It demonstrates what appears to be hydronephrosis, but on earlier CT scan is demonstrated to be one or more parapelvic cysts.. Demonstrates an echogenic focus in the left renal sinus which is presumably artifactual as no calculi are demonstrated on earlier CT scan. Abdominal aorta is partially obscured by bowel gas, visualized portions are non-aneurysmal . Impression: Negative for gallstones or dilated bile ducts Enlarged fatty liver Left renal parapelvic cysts Note nonvisualization of portions of the abdominal aorta Findings: Numerous large abdominal and pelvic wall and flank collateral veins are demonstrated. There is marked narrowing of the bilateral external iliac arteries , and absence of the bilateral common iliac arteries. There is an inferior vena cava filter. There is absence of the inferior vena cava immediately below the filter. However, the lumen of the inferior vena cava or the filter is is presumably patent, opacified with contrast. There is mild gaseous distention of the sigmoid colon, without evidence of downstream obstruction. The appendix is not definitely identified, but no findings to suggest acute appendicitis are evident. No evidence of colonic diverticulosis or diverticulitis. No small bowel distention. No free or loculated intraperitoneal gas or fluid is evident. The gallbladder is distended. No gallstones. No biliary ductal dilatation. Liver demonstrates minimal fatty infiltration. No focal liver lesions. No biliary ductal dilatation. Pancreas is unremarkable. The spleen demonstrates a granulomatous calcification in the upper pole. The adrenals are hypertrophied. The right adrenal demonstrates a somewhat ill-defined 2.6 x 1.6 cm mass. The left adrenal demonstrates an ill-defined 1.4 x 1.6 cm mass. No retroperitoneal or mesenteric mass or adenopathy. The right kidney is unremarkable. The left kidney demonstrates a complex parapelvic cyst. The uterus is unremarkable. There is a calcification in the left ovary.. The bones are unremarkable except for a bone island in the right femoral head and considerable degenerative spondylosis changes. The heart is enlarged. The tip of a central venous catheter is seen at the cavoatrial junction. The lung bases demonstrate diffuse groundglass opacity. There are also some atelectatic changes. There are mitral annular calcifications. Impression: No acute abnormality Inferior vena cava filter. 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 Extensive abdominal wall collaterals noted. Mild fatty liver Bilateral adrenal masses, possibly adenomas. Consider adrenal protocol MRI for better characterization Cardiomegaly or graft cardiomegaly Basilar groundglass opacities, may reflect pulmonary edema. There are also basilar pulmonary atelectatic changes Incidental findings as noted, including central venous catheter, right femoral head bone island,, left ovarian calcification, evidence of old granulomatous disease within the spleen ICD Codes: K85.90 - Acute pancreatitis without necrosis or infection, unspecified SNOMED: [id number] Олег Webster Oct 31, 2019 12:47
--- NOTE | 2019-10-31 13:15 | NUR ---
CASE MANAGEMENT:INITIAL REVIEW 74 YR OLD FEMALE BIBA FROM HOME CC;CHEST PAIN SI;PANCREATITIS. PRESENCE OF IVC FILTER. HYPOTHYROID 98.5 103 27 145/75 94% 3L NC FIO2 21% WBC 15.5 BUN 20 BNP 382 ALB 3.2 LIPASE 1064 D-DIMER 1.36 CXR =Cardiomegaly. Mild interstitial congestion ABD/PELVIS CT=No acute abnormality IS;ALBUTEROL HHN X1 ASA PO X1 MORPHINE IV X1 IVF NS BOLUS IX ZOFRAN IV Z1 ADMITTED TO [facility] DCP;FROM HOME
[2019-10-31] MEDS: Albuterol/Ipratropium 3ml neb HHN SCH ×2 (14:00→20:11)
--- NOTE | 2019-10-31 14:00 | NUR ---
NURSE NOTES: Patient unsteady to ambulate to restroom at this time, refusing to use bedpan. Applied Purewick. Will continue to monitor.
--- NOTE | 2019-10-31 15:04 | NUR ---
RADIOLOGY DEPT., CHEST AND SOFT TISSUE NECK FOR LINE PLCMT COMPLETED.-P.DYE
--- NOTE | 2019-10-31 15:15 | Consultation ---
DATE OF CONSULTATION: 10/31/2019 CONSULTING PHYSICIAN: Raymundo Bedolla M.D. REFERRING PHYSICIAN: Luis Godoy D.O. REASON FOR CONSULTATION: For evaluation of hydronephrosis. HISTORY OF PRESENT ILLNESS: This is a 74-year-old female. She was admitted to the hospital because of chest pain. The patient had some imaging studies including ultrasound and CT scan of the abdomen, which showed questionable hydronephrosis. Urology evaluation has been requested. The patient at this time denies significant flank pain. She is able to urinate. She does have some urinary frequency. PAST MEDICAL HISTORY: Significant for history of obesity, hypothyroidism, history of intracranial hemorrhage, DVT. PAST SURGICAL HISTORY: She has had IVC filter. Other surgeries are unknown. MEDICATIONS: Current medication list in the hospital was reviewed. The patient is currently on Zosyn, Protonix, Colace, insulin, MiraLAX, Dulcolax, Compazine. ALLERGIES: No known drug allergies. SOCIAL HISTORY: She is currently nonsmoker. REVIEW OF SYSTEMS: No flank pain. Frequency as noted above. FAMILY HISTORY: Noncontributory. PHYSICAL EXAMINATION: GENERAL: Obese female, in no acute distress. VITAL SIGNS: Temperature is 99.3, blood pressure is 124/92, respirations are 20. HEENT: Normocephalic. NECK: Supple. ABDOMEN: Soft. BACK: No CVA tenderness. EXTREMITIES: No clubbing, cyanosis. LABORATORY DATA: BUN is 20, creatinine 1.1, potassium 4.3. White count is 10.8, hemoglobin 13.4, platelets are 245. There is no urinalysis on record during this admission. DIAGNOSTIC IMAGING STUDIES: The patient had an abdominal ultrasound, which showed moderate hydronephrosis of the left kidney. There was also questionable 4 mm stone of the left kidney. The patient also had a CT scan of the abdomen and pelvis. This was a contrast study on the report. There was mention of a complex cyst of the mid pole of the left kidney with a calcified rim. On the CT report, there was no mention of obvious hydronephrosis. IMPRESSION: 1. Questionable hydronephrosis. 2. Renal cyst. 3. Renal calcification. 4. Urinary frequency. 5. Possible neurogenic bladder. PLAN AND DISCUSSION: Again, there was mention of hydronephrosis on the ultrasound report, but not the CT report. The patient does have a complex cyst of the left kidney and it is possible that this may be a central cyst that had the appearance of hydronephrosis on ultrasound. At this time, the patient do not have any significant flank pain and her renal function is normal. I will review the films with the radiologist and go from there. Urinalysis will be checked. I will follow the patient. Further recommendation will be forthcoming. Thank you, Dr. Godoy, for asking me to see this patient in consultation. Raymundo Bedolla M.D. DR: JUANA JOB#: [id number] CC:
--- NOTE | 2019-10-31 15:40 | Diagnostic Imaging Report ---
. Indication: Evaluation of central line demonstrated on recent radiographs and CT scans Technique: 2 views of the neck with soft tissue technique Comparison: Reference made to chest CT angiogram of earlier the same day, chest radiograph and abdomen CT 10/30/2019 Findings: The central venous catheter demonstrated on the earlier imaging studies is demonstrated to be the downstream end of a ventriculoatrial shunt. Shunt reservoir, occipital ankit hole, and intracranial portion are demonstrated on the lateral view. No prevertebral soft tissue swelling. No epiglottic swelling or hypopharyngeal distention. Impression: Previously questioned central venous catheter is demonstrated to actually represent the downstream end of a right-sided ventriculoatrial shunt
--- NOTE | 2019-10-31 15:43 | Diagnostic Imaging Report ---
Indication: Shortness of breath Technique: One view of the chest Comparison: 10/30/2019 Findings: Bilateral interstitial edema is unchanged. The heart remains enlarged. No new infiltrates. Right jugular central venous catheter is demonstrated, demonstrated on concomitant neck radiograph to represent the downstream end of a ventriculoatrial shunt. Findings are unchanged Impression: Unchanged, over one day, findings as above.
[2019-10-31 16:00] VITALS: BP 142/78
--- NOTE | 2019-10-31 16:45 | Consultation ---
DATE OF CONSULTATION: 10/31/2019 CONSULTING PHYSICIAN: Stephen Hermosillo M.D. CHIEF COMPLAINT: Abdominal pain. HISTORY OF PRESENT ILLNESS: This is a very pleasant 74-year-old female with numerous medical problems, which I will dictate in a second, admitted to the hospital with complaint of chest pain. The patient was found to have elevated lipase. GI consult requested for evaluation of pancreatitis. Since admission, the patient had abdominal ultrasound and CT, which none of them showed evidence of obvious pancreatitis. There was no evidence of any dilated common bile duct. The patient at this time also has no abdominal pain. PAST MEDICAL HISTORY: 1. Hypothyroidism. 2. 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 3. Morbid obesity. 4. History of DVT requiring IVC filter placement. 5. History of cataract requiring surgery. PAST SURGICAL HISTORY: History of cataract surgery, IVC filter placement, and brain aneurysm treatment. ALLERGIES: No known allergies. MEDICATIONS: Please see medication reconciliation list. SOCIAL HISTORY: The patient quit alcohol and tobacco 23 years ago. FAMILY HISTORY: Noncontributory. REVIEW OF SYSTEMS: A 10-point review of systems was performed and pertinent positives as dictated in HPI. PHYSICAL EXAMINATION: VITAL SIGNS: Temperature is 99.7, pulse is 84, respirations 21, blood pressure . HEENT: Normocephalic and atraumatic. Sclerae anicteric. NECK: Supple. No evidence of obvious lymphadenopathy. CARDIOVASCULAR: Regular rate and rhythm. Plus S1 and S2. LUNGS: Clear to auscultation bilaterally. ABDOMEN: Positive bowel sounds. Soft and nontender. No rebound. No guarding. No peritoneal sign. EXTREMITIES: No cyanosis. No clubbing. No edema. LABORATORY DATA: White count is 10, hemoglobin 13, hematocrit 41, platelet count is 245. Chem-7, sodium is 141, potassium 5.1, BUN is 19, creatinine is 1.3. Liver function grossly normal. Lipase was 1064. ASSESSMENT AND PLAN: This is a 74-year-old female with numerous medical problems as dictated above. From GI standpoint, has elevated lipase, but at this time, this is asymptomatic and no CT evidence of pancreatitis. The patient risk. Denies any alcohol. Plan to get a lipid panel for tomorrow. Repeat amylase and lipase. Start diet and advance as tolerated. Hold off the GI procedures for now. Stephen Hermosillo M.D. DR: ANTON JOB#: [id number] CC:
--- NOTE | 2019-10-31 17:00 | NUR ---
NURSE NOTES: Patient wants to get up and walk to the restroom, patient has unsteady gait and educated on bedrest order d/t DVT on the lower leg. Offered bedpan, patient refused. Patient remained in bed, will continue to monitor.
--- NOTE | 2019-10-31 19:05 | NUR ---
NURSE NOTES: Received report from Slime RN, pt. in bed awake- A/O x's 3-4 - confused at times, family at bedside, pt appears to be sating well on 3L NC - no distress noted, bed in lowest position and call light within easy reach, bed in lowest position and call light within easy reach, bed locked in position, pt. appears to be clean and dry, left hand 18G IV intact and patent, OLEGARIO 20G IV intact and patent, safety measures continued, will continue with plan of care.
--- NOTE | 2019-10-31 19:07 | NUR ---
HAND-OFF: Report given to OSCAR Malave . Endorsed plan of care. Patient in stable condition.
[2019-10-31 20:00] VITALS: BP 151/88
--- NOTE | 2019-10-31 20:00 | NUR ---
NURSE NOTES: per DR. Webb he will put order for in and out cath for urine sample... and head CT. Addendum: 10/31/19 at 2136 by CASSIDY ALBA RN RN CORRECTION TO NAME ITS DR. GUERRERO.
--- NOTE | 2019-10-31 21:11 | Diagnostic Imaging Report ---
Indications: Altered level of consciousness Technique: Spiral acquisitions obtained through the brain. Angled axial and coronal 5 x 5 mm slices were reconstructed. Total dose length product 1205 mGycm. CTDI vol(s) 53 mGy. Dose reduction achieved using automated exposure control Comparison: None. Findings: A thin rim of slightly hypoattenuating extra-axial material is seen over the anterior right frontal and parietal convexity, measuring approximately 4 mm in thickness. Within this there is a small focus of extra-axial overlying the posterior left frontal lobe hyperattenuating material. There is minimal mass effect, manifested by attenuation of its lateral sulci. There is also some questionable high attenuation blood along the left lateral aspect of the tentorium, although this could just represent a prominent venous sinus. There is evidence of prior right frontal craniotomy. There is encephalomalacia of the inferior right frontal lobe and to lesser extent the anterior superior left frontal lobe. There are bilateral frontal old ankit holes noted. There is a right parietal ventriculostomy, shaft passing through the body of the right lateral ventricle, tip projected at the level of the anterior inferior septum pellucidum. There is no evidence of hydrocephalus. There is minimal ex vacuo dilatation of the frontal horn of the right lateral ventricle. No acute intracranial hemorrhage or edema. No mass effect nor midline shift. Streak artifact, probably from dental amalgam, obscures portions of the posterior fossa. There is some periventricular deep white matter low-attenuation consistent with chronic microvascular ischemic changes. Otherwise normal trejo-white differentiation. The calvarium is intact. The visualized orbits suggests prior cataract surgery. The sinuses are clear. The mastoids are clear Impression: Suspect 4 mm thick right anterior convexity subdural hematoma, mostly subacute/old but with a focal small acute component, as described. Mild local mass effect. There is a more questionable focus of acute subdural hematoma along the lateral aspect of the tentorium on the left. This was not described on the [facility] preliminary report. Dr. Godoy notified by phone of findings at the time of interpretation, and [facility] was notified through their website Extensive chronic changes as described, including prior right frontal craniotomy, bilateral right greater than left frontal encephalomalacia Postsurgical changes, as described, including evidence of prior right frontal craniotomy, bilateral frontal ankit holes Right parietal ventriculostomy, demonstrated on earlier images to be a ventriculoatrial shunt The remaining findings are in agreement with the [facility] preliminary report The CT scanner at [facility] is designed to limit radiation exposure to as low as reasonably achievable to attain images of sufficient resolution adequate for diagnostic evaluation.
--- NOTE | 2019-10-31 21:27 | General Progress Note ---
Assessment/Plan Assessment/Plan: This Is a 74-year-old female with a past medical history of hypothyroidism, AVM of brain, ICH secondary to AVM, gallstones who presents with pleuritic chest pain radiating to her back for 1 day. Found to have pancreatitis as well as left moderate hydronephrosis of kidney #Pleuritic chest pain, unclear etiology. Could be referred pain from pancreas or gallbladder. Now resolved #Pancreatitis, unclear etiology. Denies history of alcohol use and abdominal ultrasound negative for gallstones or cholecystitis. #Family history of pancreatic cancer #Acute hypoxic respiratory failure (Tachypnea) secondary to pulmonary edema- resolving #Sirs (WBC, tachypnea), no source at this time. Could be 2/2 pancreatitis -Telemetry -Trend troponins: negative x 3 -2D echocardiogram: Poor study. Grossly normal EF and no wall motion abnormalities. IVC normal size. -CT pulmonary angiogram to rule out PE: negative -GI consult for pancreatitis: Dr. Hermosillo - No interventions at this time. Recheck amylase and lipase. -Surgery consult for abdominal pain/referred chest pain and cholecystitis: Dr. Webster - No surgical interventions. - Discontinue fluids -Zosyn (10/30 - ) -Blood cultures x2 #acute metabolic encephalopathy. 10/13 above - stat CT head - urinalysis - trend labs - continue Abx as above - Continue to monitor #Moderate hydronephrosis of left kidney of uncertain etiology #0.4 cm nonobstructing lower pole left kidney stone -urology consult: Dr. Bedolla -Trend creatinine -IV fluidsPatient as above -Consider low-dose renal stone protocol CT #Left lower extremity DVT > S/p IVC filter - SCDs on right leg #Hypothyroidism -Continue home Synthroid #History of ICH secondary to AVM #History of AVM of brain #History of DVT status post IVC filter due to contraindication for anticoagulation #Absolute contraindication to any further anticoagulation. Discussed with patient. -Venous duplex ultrasound bilateral to confirm if any new DVTs #Bilateral adrenal adenomas -Endocrinology consult #Morbid obesity -Patient counseled patient on weight loss DVT prophylaxis: HSQ Code status: Full but no prolonged intubation 38 minutes spent on this encounter. Discussed with RN, GI, Surgery, Urology. > 50% spent on counseling and care coordination. Time of note may not reflect time patient was seen. Subjective Date patient seen: Oct 31, 2019 Allergies: Coded Allergies: No Known Allergies (Unverified , 10/30/19) Subjective Patient felt much better today. No acute events overnight per nursing. Patient cleared for regular diet per GI. No acute surgical or gastroenterology interventions needed. Per discussion with family later today they stated that the patient is more altered than her baseline. She denies any numbness tingling focal weakness headaches chest pain shortness of breath fever chills cough. She denies any dysuria or urinary symptoms. She feels well. Review of systems: Constitutional: Denies: chills, diaphoresis, fever, malaise, weakness, other HEENT: Denies: eye pain, blurred vision, tearing, double vision, ear pain, ear discharge, nose pain, nose congestion, throat pain, throat swelling, mouth pain , mouth swelling, Cardiovascular: Denies: chest pain, edema, lightheadedness, palpitations, syncope, Respiratory: Denies: cough, orthopnea, shortness of breath, SOB with excertion , SOB at rest, sputum, stridor, wheezing, other Gastrointestinal/Abdominal: Denies: abdomen distended, abdominal pain, black stools, tarry stools, blood in stool, constipated, diarrhea, difficulty swallowing, nausea, poor appetite, poor fluid intake, rectal bleeding, vomiting , other Genitourinary: Denies: burning, discharge, frequency, flank pain, hematuria, incontinence, pain, urgency, other Neurologic/Psychiatric: Denies: anxiety, depressed, emotional problems, headache, numbness, paresthesia, pre-existing deficit, seizure, tingling, tremors, weakness, other Endocrine: Denies: excessive sweating, flushing, intolerance to cold, intolerance to heat, increased hunger, increased thirst, increased urine, unexplained weight gain, unexplained weight loss, other MSK: denies joint pains, swelling, stiffness Hematologic/Lymphatic: Denies: anemia, easy bleeding, easy bruising, other Objective Last 24 Hour Vital Signs Date Time Temp Pulse Resp B/P (MAP) Pulse Ox O2 Delivery O2 Flow Rate FiO2 10/31/19 20:11 100 17 100 Nasal Cannula 2.0 28 97 18 97 10/31/19 16:00 Nasal Cannula 3.0 10/31/19 16:00 3.0 10/31/19 16:00 98.9 92 20 142/78 97 Nasal Cannula 3.0 10/31/19 15:36 90 10/31/19 12:00 99.0 88 20 129/65 97 Nasal Cannula 3.0 10/31/19 12:00 3.0 10/31/19 12:00 Nasal Cannula 3.0 10/31/19 11:41 88 10/31/19 08:00 99.7 84 21 127/66 95 Nasal Cannula 3.0 10/31/19 08:00 Nasal Cannula 3.0 10/31/19 08:00 3.0 10/31/19 07:39 99 10/31/19 04:00 3.0 10/31/19 04:00 Nasal Cannula 3.0 10/31/19 04:00 99.3 96 20 125/92 99 3.0 10/31/19 00:29 Nasal Cannula 3.0 10/31/19 00:00 100 10/31/19 00:00 98.1 100 20 145/75 100 3.0 Intake and Output 10/30/19 10/31/19 19:00 07:00 Intake Total 1110 ml 565.0 ml Balance 1110 ml 565.0 ml Intake Oral 0 ml IV Total 1110 ml 565.0 ml # Bowel Movements 2 Laboratory Tests 10/31/19 00:55: Troponin I 0.006 10/31/19 06:57: Troponin I 0.000, White Blood Count 10.8, Red Blood Count 4.36, Hemoglobin 13.4 , Hematocrit 41.0, Mean Corpuscular Volume 94, Mean Corpuscular Hemoglobin 30.7 , Mean Corpuscular Hemoglobin Concent 32.6, Red Cell Distribution Width 13.0, Platelet Count 245, Mean Platelet Volume 8.1, Neutrophils (%) (Auto) 73.0, Lymphocytes (%) (Auto) 15.3L, Monocytes (%) (Auto) 7.2, Eosinophils (%) (Auto) 2.9, Basophils (%) (Auto) 1.5, Sodium Level 141, Potassium Level 5.1, Chloride Level 103, Carbon Dioxide Level 31, Anion Gap 7, Blood Urea Nitrogen 19H, Creatinine 1.3, Estimat Glomerular Filtration Rate 39.9, Glucose Level 117H, Hemoglobin A1c 6.0, Calcium Level 8.9, Magnesium Level 2.2, Total Bilirubin 0.5 , Aspartate Amino Transf (AST/SGOT) 17, Alanine Aminotransferase (ALT/SGPT) 18, Alkaline Phosphatase 103, Total Protein 7.1, Albumin 3.1L, Globulin 4.0, Albumin /Globulin Ratio 0.8L, Triglycerides Level 97, Cholesterol Level 154, LDL Cholesterol 83, HDL Cholesterol 55, Cholesterol/HDL Ratio 2.8L, Thyroid Stimulating Hormone (TSH) 2.839 Height (Feet): 5 Height (Inches): 3.00 Weight (Pounds): 325 Objective General: WDWN female in NAD, A&O x 4 HEENT: Normocephalic cephalic atraumatic, pupils equal round reactive to light and accommodation, nares patent and no symmetrical, no tonsillar exudates, mucous membranes moist CV: Regular rate regular rhythm, no murmurs, rubs, or gallops Pulm: Lungs clear to auscultation bilaterally. No wheezes, rhonchi, or rales GI: Soft, nontender, nondistended, bowel sounds present Neuro: CN 2-12 intact bilaterally, no focal signs. Ext: No lower extremity edema bilaterally Skin: no rashes lesions or ulcers Msk: Joints symmetrical in upper extremity and lower extremity bilaterally, no joint swelling. Lymph: No lymphadenopathy in upper extremity and lower extremity Luis Godoy D.O. Oct 31, 2019 21:27
[2019-10-31 21:44] LABS: BASOPHILS % (AUTO) 0.9 % (0.0-2.0); EOSINOPHILS % (AUTO) 2.9 % (0.0-3.0); HEMATOCRIT 40.7 % (37.0-47.0); HEMOGLOBIN 13.4 G/DL (12.0-16.0); LYMPHOCYTES % (AUTO) 10.8 % (20.0-45.0); MEAN CORPUSCULAR VOLUME 94 FL (80-99); MONOCYTES % (AUTO) 5.9 % (1.0-10.0); NEUTROPHILS % (AUTO) 79.4 % (45.0-75.0); PLATELET COUNT 243 K/UL (150-450); RED BLOOD COUNT 4.34 M/UL (4.20-5.40); RED CELL DISTRIBUTION WIDTH 12.9 % (11.6-14.8); WHITE BLOOD COUNT 10.5 K/UL (4.8-10.8)
[2019-10-31 22:00] LABS: ALANINE AMINOTRANSFERASE 16 U/L (12-78); ALBUMIN 3.2 G/DL (3.4-5.0); ALBUMIN/GLOBULIN RATIO 0.7 (1.0-2.7); ALKALINE PHOSPHATASE 102 U/L (46-116); ANION GAP 9 mmol/L (5-15); ASPARTATE AMINO TRANSFERASE 15 U/L (15-37); BILIRUBIN,TOTAL 0.4 MG/DL (0.2-1.0); BLOOD UREA NITROGEN 20 mg/dL (7-18); CALCIUM 8.9 MG/DL (8.5-10.1); CARBON DIOXIDE 30 MMOL/L (21-32); CHLORIDE 104 MMOL/L (98-107); CREATININE 1.4 MG/DL (0.55-1.30); PHOSPHORUS 4.4 MG/DL (2.5-4.9); POTASSIUM 4.9 MMOL/L (3.5-5.1); SODIUM 143 MMOL/L (136-145)
--- NOTE | 2019-10-31 22:05 | NUR ---
NURSE NOTES: in and out catheter done on patient- will send sample to lab.
--- NOTE | 2019-10-31 22:40 | NUR ---
NURSE NOTES: left message for DR. Berman- regarding CT results- awaiting for call back from doctor.
[2019-10-31 23:32] LABS: APPEARANCE,URINE CLEAR; BILIRUBIN, URINE NEGATIVE (NEGATIVE); GLUCOSE, URINE (UA) NEGATIVE (NEGATIVE); KETONES,URINE NEGATIVE (NEGATIVE); LEUKOCYTE ESTERASE ,URINE NEGATIVE (NEGATIVE); NITRITE,URINE NEGATIVE (NEGATIVE); PH,URINE 5 (4.5-8.0); PROTEIN,URINE 2+ (NEGATIVE); UROBILINOGEN,URINE NORMAL MG/DL (0.0-1.0)
[2019-10-31 23:33] LABS: COLOR,URINE YELLOW
[2019-11-01] VITALS: BP 132/76
--- NOTE | 2019-11-01 01:12 | NUR ---
NURSE NOTES: pt. states she is having nausea and vomiting symptoms- pt. vomited very small amount of food like particels. will administer medication per eMAR and continue to monitor pt.
--- NOTE | 2019-11-01 01:33 | NUR ---
NURSE NOTES: pt. appears to be resting comfortably- denies any nausea or vomiting symptoms.
[2019-11-01] MEDS: Albuterol/Ipratropium 3ml neb HHN SCH ×4 (01:53→19:15)
[2019-11-01 04:00] VITALS: BP_SYST 130; BP_SYST 142; BP_DIAS 76; BP_DIAS 79
--- NOTE | 2019-11-01 04:57 | NUR ---
HAND-OFF: Report given to Pedro Garcia- pt.remains stable and no signs of distress noted.
--- NOTE | 2019-11-01 05:00 | NUR ---
HAND-OFF: Report given to Pedro Garcia- pt.remains stable and no signs of distress noted.
--- NOTE | 2019-11-01 05:05 | NUR ---
NURSE NOTES: Report received from CASSIDY MOORE, using SBAR. Patient is sleeping in bed with no acute distress.on NC 3L . Call light in reach, bed alarm on.will continue to monitor.
[2019-11-01 05:43] LABS: BASOPHILS % (AUTO) 0.5 % (0.0-2.0); HEMATOCRIT 39.3 % (37.0-47.0); HEMOGLOBIN 12.9 G/DL (12.0-16.0); LYMPHOCYTES % (AUTO) 10.8 % (20.0-45.0); MEAN CORPUSCULAR VOLUME 94 FL (80-99); MONOCYTES % (AUTO) 5.7 % (1.0-10.0); PLATELET COUNT 227 K/UL (150-450); RED BLOOD COUNT 4.17 M/UL (4.20-5.40); RED CELL DISTRIBUTION WIDTH 13.1 % (11.6-14.8); WHITE BLOOD COUNT 11.9 K/UL (4.8-10.8)
[2019-11-01] MEDS: Piperacillin/Tazobactam 3.375 GM in NS 110 ML IVPB SCH ×2 (05:54→14:09)
[2019-11-01 06:26] LABS: ALANINE AMINOTRANSFERASE 17 U/L (12-78); ALBUMIN 2.9 G/DL (3.4-5.0); ALBUMIN/GLOBULIN RATIO 0.6 (1.0-2.7); ALKALINE PHOSPHATASE 94 U/L (46-116); AMYLASE 48 U/L (25-115); ANION GAP 10 mmol/L (5-15); ASPARTATE AMINO TRANSFERASE 12 U/L (15-37); BILIRUBIN,TOTAL 0.3 MG/DL (0.2-1.0); BLOOD UREA NITROGEN 19 mg/dL (7-18); CALCIUM 9.1 MG/DL (8.5-10.1); CARBON DIOXIDE 28 MMOL/L (21-32); CHLORIDE 105 MMOL/L (98-107); CHOLESTEROL 153 MG/DL (< 200); CREATININE 1.4 MG/DL (0.55-1.30); HDL CHOLESTEROL 55 MG/DL (40-60); POTASSIUM 4.6 MMOL/L (3.5-5.1); SODIUM 143 MMOL/L (136-145); TRIGLYCERIDES 61 MG/DL (30-150)
[2019-11-01 06:27] LABS: PHOSPHORUS 3.8 MG/DL (2.5-4.9)
[2019-11-01] MEDS: NovoLOG Insulin Flexpen SUBQ SCH ×4 (06:30→21:00)
--- NOTE | 2019-11-01 07:49 | NUR ---
HAND-OFF: Report given to NORMA MOORE using SBAR.Patient remains stable in condition.
[2019-11-01 08:00] VITALS: BP 137/72
--- NOTE | 2019-11-01 08:06 | NUR ---
NURSE NOTES: recvd pt. Pt is AOX4, pt appears SR on rn or lpn, pt is on NC @3L with no sign of sob or acute resp distress. Pt has IV site that appears c/d/i and running IV abx. Bed in lowest position, call light within reach, will continue with plan of care
--- NOTE | 2019-11-01 08:09 | Urology Progress Note ---
Assessment/Plan Assessment/Plan: 1. Questionable hydronephrosis. 2. Renal cyst. 3. Renal calcification. 4. Urinary frequency. 5. Possible neurogenic bladder. 6. mild CORINNA. monitor clinically d/w radiologist no obvious hydro noted on CT monitor renal fxn abx as ordered f/u on blood cx d/w primary service Subjective Allergies: Coded Allergies: No Known Allergies (Unverified , 10/30/19) Subjective looks comfortable Objective Last 24 Hour Vital Signs Date Time Temp Pulse Resp B/P (MAP) Pulse Ox O2 Delivery O2 Flow Rate FiO2 11/01/19 08:00 Nasal Cannula 3.0 11/01/19 08:00 3.0 11/01/19 08:00 92 11/01/19 07:18 96 Nasal Cannula 3.0 32 11/01/19 04:00 Nasal Cannula 3.0 11/01/19 04:00 3.0 11/01/19 04:00 98.0 92 24 130/76 100 Nasal Cannula 3.0 11/01/19 03:30 90 11/01/19 01:53 94 18 100 Nasal Cannula 3.0 32 91 18 97 11/01/19 00:00 97.8 98 22 132/76 97 Nasal Cannula 3.0 11/01/19 00:00 Nasal Cannula 3.0 11/01/19 00:00 3.0 10/31/19 23:35 90 10/31/19 20:11 100 17 100 Nasal Cannula 2.0 28 97 18 97 10/31/19 20:00 92 10/31/19 20:00 3.0 10/31/19 20:00 Nasal Cannula 3.0 10/31/19 20:00 99.1 97 22 151/88 99 Nasal Cannula 3.0 10/31/19 16:00 Nasal Cannula 3.0 10/31/19 16:00 3.0 10/31/19 16:00 98.9 92 20 142/78 97 Nasal Cannula 3.0 10/31/19 15:36 90 10/31/19 12:00 99.0 88 20 129/65 97 Nasal Cannula 3.0 10/31/19 12:00 3.0 10/31/19 12:00 Nasal Cannula 3.0 10/31/19 11:41 88 Intake and Output 10/31/19 11/01/19 19:00 07:00 Intake Total 942.5 ml 337.5 ml Output Total 600 ml Balance 942.5 ml -262.5 ml Intake Oral 500 ml 200 ml IV Total 442.5 ml 137.5 ml Output Urine Total 600 ml # Voids 1 2 Microbiology Date/Time Source Procedure Growth Status 10/30/19 23:50 Blood Blood Culture - Preliminary NO GROWTH AFTER 24 HOURS Resulted 10/30/19 15:30 Nasal Nares - Final Complete 10/30/19 15:30 Nasal Nares - Final Complete Current Medications Medications (Trade) Dose Ordered Sig/Cecily Route PRN Reason Start Time Stop Time Status Last Admin Dose Admin Albuterol/ Ipratropium (Albuterol/ Ipratropium) 3 ml Q6H PRN HHN wheezing/SOB 10/30/19 19:45 11/04/19 19:44 Albuterol/ Ipratropium (Albuterol/ Ipratropium) 3 ml Q6HRT HHN 10/31/19 14:00 11/05/19 13:59 11/01/19 01:53 Bisacodyl (Dulcolax) 10 mg HSPRN PRN RECTAL Constipation 10/30/19 18:30 11/29/19 18:29 Dextrose (Dextrose 50%) 25 ml Q30M PRN IV Hypoglycemia 10/30/19 18:30 11/29/19 18:29 Dextrose (Dextrose 50%) 50 ml Q30M PRN IV Hypoglycemia 10/30/19 18:30 11/29/19 18:29 Docusate Sodium (Colace) 100 mg EVERY 12 HOURS ORAL 10/30/19 22:00 11/29/19 21:59 10/31/19 20:35 Heparin Sodium (Porcine) (Heparin 5000 units/ml) 5,000 units EVERY 12 HOURS SUBQ 11/01/19 09:00 12/01/19 08:59 Insulin Aspart (NovoLOG) BEFORE MEALS AND HS SUBQ 10/30/19 21:00 11/29/19 20:59 10/31/19 20:40 Iohexol (OMNIPAQUE-300 100ml) 100 ml NOW PRN INJ Radiology Procedure 10/30/19 16:45 11/01/19 16:32 Iohexol (Omnipaque 350 100ml) 100 ml NOW PRN INJ Radiology Procedure 10/30/19 19:45 11/01/19 19:41 Levothyroxine Sodium (Synthroid) 100 mcg DAILY@0630 ORAL 11/01/19 06:30 12/01/19 06:29 11/01/19 06:34 Magnesium Hydroxide (Mom) 30 ml HSPRN PRN ORAL Constipation 10/30/19 18:30 11/29/19 18:29 Pantoprazole (Protonix) 40 mg DAILY IV 10/30/19 22:00 11/29/19 21:59 10/31/19 08:12 Piperacillin Sod/ Tazobactam Sod 3.375 gm/Sodium Chloride 110 ml @ 27.5 mls/hr EVERY 8 HOURS IVPB 10/30/19 22:00 11/06/19 21:59 11/01/19 05:54 Polyethylene Glycol (Miralax) 17 gm HSPRN PRN ORAL Constipation 10/30/19 18:30 11/29/19 18:29 Prochlorperazine (Compazine) 10 mg Q6H PRN IVP Nausea & Vomiting 10/30/19 18:30 11/29/19 18:29 11/01/19 01:09 Laboratory Tests 10/31/19 21:15: White Blood Count 10.5, Red Blood Count 4.34, Hemoglobin 13.4, Hematocrit 40.7, Mean Corpuscular Volume 94, Mean Corpuscular Hemoglobin 30.8, Mean Corpuscular Hemoglobin Concent 32.8, Red Cell Distribution Width 12.9, Platelet Count 243, Mean Platelet Volume 8.2, Neutrophils (%) (Auto) 79.4H, Lymphocytes (%) (Auto) 10.8L, Monocytes (%) (Auto) 5.9, Eosinophils (%) (Auto) 2.9, Basophils (%) (Auto ) 0.9, Sodium Level 143, Potassium Level 4.9, Chloride Level 104, Carbon Dioxide Level 30, Anion Gap 9, Blood Urea Nitrogen 20H, Creatinine 1.4H, Estimat Glomerular Filtration Rate 36.7, Glucose Level 158H, Calcium Level 8.9, Phosphorus Level 4.4, Total Bilirubin 0.4, Aspartate Amino Transf (AST/SGOT) 15 , Alanine Aminotransferase (ALT/SGPT) 16, Alkaline Phosphatase 102, Total Protein 7.5, Albumin 3.2L, Globulin 4.3, Albumin/Globulin Ratio 0.7L 10/31/19 21:20: Urine Color Yellow, Urine Appearance Clear, Urine pH 5, Urine Specific [place] 1.020, Urine Protein 2+H, Urine Glucose (UA) Negative, Urine Ketones Negative, Urine Blood Negative, Urine Nitrite Negative, Urine Bilirubin Negative, Urine Urobilinogen Normal, Urine Leukocyte Esterase Negative, Urine RBC 0-2, Urine WBC 0, Urine Squamous Epithelial Cells Few, Urine Bacteria None 11/01/19 03:45: White Blood Count 11.9H, Red Blood Count 4.17L, Hemoglobin 12.9, Hematocrit 39.3 , Mean Corpuscular Volume 94, Mean Corpuscular Hemoglobin 30.9, Mean Corpuscular Hemoglobin Concent 32.7, Red Cell Distribution Width 13.1, Platelet Count 227, Mean Platelet Volume 8.2, Neutrophils (%) (Auto) 81.0H, Lymphocytes ( %) (Auto) 10.8L, Monocytes (%) (Auto) 5.7, Eosinophils (%) (Auto) 2.0, Basophils (%) (Auto) 0.5, Sodium Level 143, Potassium Level 4.6, Chloride Level 105, Carbon Dioxide Level 28, Anion Gap 10, Blood Urea Nitrogen 19H, Creatinine 1.4H, Estimat Glomerular Filtration Rate 36.7, Glucose Level 128H, Calcium Level 9.1, Phosphorus Level 3.8, Total Bilirubin 0.3, Aspartate Amino Transf ( AST/SGOT) 12L, Alanine Aminotransferase (ALT/SGPT) 17, Alkaline Phosphatase 94, Total Protein 7.8, Albumin 2.9L, Globulin 4.9, Albumin/Globulin Ratio 0.6L, Magnesium Level 2.3, Triglycerides Level 61, Cholesterol Level 153, LDL Cholesterol 91, HDL Cholesterol 55, Cholesterol/HDL Ratio 2.8L, Amylase Level 48 , Lipase 227 Height (Feet): 5 Height (Inches): 3.00 Weight (Pounds): 324 Objective exam stable Raymundo Bedolla MD Nov 01, 2019 08:09
[2019-11-01] MEDS: Pantoprazole Inj IV SCH (08:48)
[2019-11-01] MEDS: Docusate 100mg cap ORAL SCH ×2 (08:48→21:37)
[2019-11-01] MEDS ORDERED: Heparin 5000 units/ml inj SUBQ SCH (09:00)
--- NOTE | 2019-11-01 10:18 | General Progress Note ---
Assessment/Plan Assessment/Plan: 1. Hypothyroidism. 2. 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 3. Morbid obesity. 4. History of DVT requiring IVC filter placement. 5. History of cataract requiring surgery. no evidence of pancreatitis improved amylase and lipase on diet will fu Subjective ROS Limited/Unobtainable: No Allergies: Coded Allergies: No Known Allergies (Unverified , 10/30/19) Objective Last 24 Hour Vital Signs Date Time Temp Pulse Resp B/P (MAP) Pulse Ox O2 Delivery O2 Flow Rate FiO2 11/01/19 08:00 Nasal Cannula 3.0 11/01/19 08:00 98.9 92 18 137/72 94 Nasal Cannula 3.0 11/01/19 08:00 3.0 11/01/19 08:00 92 11/01/19 07:18 96 Nasal Cannula 3.0 32 11/01/19 04:00 Nasal Cannula 3.0 11/01/19 04:00 3.0 11/01/19 04:00 98.0 92 24 130/76 100 Nasal Cannula 3.0 11/01/19 03:30 90 11/01/19 01:53 94 18 100 Nasal Cannula 3.0 32 91 18 97 11/01/19 00:00 97.8 98 22 132/76 97 Nasal Cannula 3.0 11/01/19 00:00 Nasal Cannula 3.0 11/01/19 00:00 3.0 10/31/19 23:35 90 10/31/19 20:11 100 17 100 Nasal Cannula 2.0 28 97 18 97 10/31/19 20:00 92 10/31/19 20:00 3.0 10/31/19 20:00 Nasal Cannula 3.0 10/31/19 20:00 99.1 97 22 151/88 99 Nasal Cannula 3.0 10/31/19 16:00 Nasal Cannula 3.0 10/31/19 16:00 3.0 10/31/19 16:00 98.9 92 20 142/78 97 Nasal Cannula 3.0 10/31/19 15:36 90 10/31/19 12:00 99.0 88 20 129/65 97 Nasal Cannula 3.0 10/31/19 12:00 3.0 10/31/19 12:00 Nasal Cannula 3.0 10/31/19 11:41 88 Intake and Output 10/31/19 11/01/19 19:00 07:00 Intake Total 942.5 ml 337.5 ml Output Total 600 ml Balance 942.5 ml -262.5 ml Intake Oral 500 ml 200 ml IV Total 442.5 ml 137.5 ml Output Urine Total 600 ml # Voids 1 2 Laboratory Tests 10/31/19 21:15: White Blood Count 10.5, Red Blood Count 4.34, Hemoglobin 13.4, Hematocrit 40.7, Mean Corpuscular Volume 94, Mean Corpuscular Hemoglobin 30.8, Mean Corpuscular Hemoglobin Concent 32.8, Red Cell Distribution Width 12.9, Platelet Count 243, Mean Platelet Volume 8.2, Neutrophils (%) (Auto) 79.4H, Lymphocytes (%) (Auto) 10.8L, Monocytes (%) (Auto) 5.9, Eosinophils (%) (Auto) 2.9, Basophils (%) (Auto ) 0.9, Sodium Level 143, Potassium Level 4.9, Chloride Level 104, Carbon Dioxide Level 30, Anion Gap 9, Blood Urea Nitrogen 20H, Creatinine 1.4H, Estimat Glomerular Filtration Rate 36.7, Glucose Level 158H, Calcium Level 8.9, Phosphorus Level 4.4, Total Bilirubin 0.4, Aspartate Amino Transf (AST/SGOT) 15 , Alanine Aminotransferase (ALT/SGPT) 16, Alkaline Phosphatase 102, Total Protein 7.5, Albumin 3.2L, Globulin 4.3, Albumin/Globulin Ratio 0.7L 10/31/19 21:20: Urine Color Yellow, Urine Appearance Clear, Urine pH 5, Urine Specific Advance 1.020, Urine Protein 2+H, Urine Glucose (UA) Negative, Urine Ketones Negative, Urine Blood Negative, Urine Nitrite Negative, Urine Bilirubin Negative, Urine Urobilinogen Normal, Urine Leukocyte Esterase Negative, Urine RBC 0-2, Urine WBC 0, Urine Squamous Epithelial Cells Few, Urine Bacteria None 11/01/19 03:45: White Blood Count 11.9H, Red Blood Count 4.17L, Hemoglobin 12.9, Hematocrit 39.3 , Mean Corpuscular Volume 94, Mean Corpuscular Hemoglobin 30.9, Mean Corpuscular Hemoglobin Concent 32.7, Red Cell Distribution Width 13.1, Platelet Count 227, Mean Platelet Volume 8.2, Neutrophils (%) (Auto) 81.0H, Lymphocytes ( %) (Auto) 10.8L, Monocytes (%) (Auto) 5.7, Eosinophils (%) (Auto) 2.0, Basophils (%) (Auto) 0.5, Sodium Level 143, Potassium Level 4.6, Chloride Level 105, Carbon Dioxide Level 28, Anion Gap 10, Blood Urea Nitrogen 19H, Creatinine 1.4H, Estimat Glomerular Filtration Rate 36.7, Glucose Level 128H, Calcium Level 9.1, Phosphorus Level 3.8, Total Bilirubin 0.3, Aspartate Amino Transf ( AST/SGOT) 12L, Alanine Aminotransferase (ALT/SGPT) 17, Alkaline Phosphatase 94, Total Protein 7.8, Albumin 2.9L, Globulin 4.9, Albumin/Globulin Ratio 0.6L, Magnesium Level 2.3, Triglycerides Level 61, Cholesterol Level 153, LDL Cholesterol 91, HDL Cholesterol 55, Cholesterol/HDL Ratio 2.8L, Amylase Level 48 , Lipase 227 Height (Feet): 5 Height (Inches): 3.00 Weight (Pounds): 324 General Appearance: alert EENT: normal ENT inspection Neck: supple Cardiovascular: normal rate Respiratory/Chest: lungs clear Abdomen: normal bowel sounds, non tender, soft Extremities: non-tender Stephen Hermosillo MD Nov 01, 2019 10:18
[2019-11-01 12:00] VITALS: BP 136/73
--- NOTE | 2019-11-01 14:13 | Surgery Progress Note ---
Surgery Progress Note Subjective Additional Comments No acute events. Doing well. Family thought she is having some altered and CT head ordered and noted. Pending transfer to [facility] given findings. Work-up for line in ventricle identified and appropriate shunt in place spelt noted Objective Last 24 Hour Vital Signs Date Time Temp Pulse Resp B/P (MAP) Pulse Ox O2 Delivery O2 Flow Rate FiO2 11/01/19 12:00 97.9 89 18 136/73 96 Nasal Cannula 3.0 11/01/19 12:00 Nasal Cannula 3.0 11/01/19 12:00 86 11/01/19 11:26 3.0 11/01/19 08:00 Nasal Cannula 3.0 11/01/19 08:00 98.9 92 18 137/72 94 Nasal Cannula 3.0 11/01/19 08:00 3.0 11/01/19 08:00 92 11/01/19 07:18 96 Nasal Cannula 3.0 32 11/01/19 04:00 Nasal Cannula 3.0 11/01/19 04:00 3.0 11/01/19 04:00 98.0 92 24 130/76 100 Nasal Cannula 3.0 11/01/19 03:30 90 11/01/19 01:53 94 18 100 Nasal Cannula 3.0 32 91 18 97 11/01/19 00:00 97.8 98 22 132/76 97 Nasal Cannula 3.0 11/01/19 00:00 Nasal Cannula 3.0 11/01/19 00:00 3.0 10/31/19 23:35 90 10/31/19 20:11 100 17 100 Nasal Cannula 2.0 28 97 18 97 10/31/19 20:00 92 10/31/19 20:00 3.0 10/31/19 20:00 Nasal Cannula 3.0 10/31/19 20:00 99.1 97 22 151/88 99 Nasal Cannula 3.0 10/31/19 16:00 Nasal Cannula 3.0 10/31/19 16:00 3.0 10/31/19 16:00 98.9 92 20 142/78 97 Nasal Cannula 3.0 10/31/19 15:36 90 I&O Intake and Output 10/31/19 11/01/19 19:00 07:00 Intake Total 942.5 ml 337.5 ml Output Total 600 ml Balance 942.5 ml -262.5 ml Intake Oral 500 ml 200 ml IV Total 442.5 ml 137.5 ml Output Urine Total 600 ml # Voids 1 2 Cardiovascular: RSR Respiratory: clear Abdomen: soft, flat, non-tender, present bowel sounds Extremities: edema, no tenderness, no cyanosis Laboratory Tests Test 10/31/19 21:15 10/31/19 21:20 11/01/19 03:45 White Blood Count 10.5 K/UL (4.8-10.8) 11.9 K/UL (4.8-10.8) H Red Blood Count 4.34 M/UL (4.20-5.40) 4.17 M/UL (4.20-5.40) L Hemoglobin 13.4 G/DL (12.0-16.0) 12.9 G/DL (12.0-16.0) Hematocrit 40.7 % (37.0-47.0) 39.3 % (37.0-47.0) Mean Corpuscular Volume 94 FL (80-99) 94 FL (80-99) Mean Corpuscular Hemoglobin 30.8 PG (27.0-31.0) 30.9 PG (27.0-31.0) Mean Corpuscular Hemoglobin Concent 32.8 G/DL (32.0-36.0) 32.7 G/DL (32.0-36.0) Red Cell Distribution Width 12.9 % (11.6-14.8) 13.1 % (11.6-14.8) Platelet Count 243 K/UL (150-450) 227 K/UL (150-450) Mean Platelet Volume 8.2 FL (6.5-10.1) 8.2 FL (6.5-10.1) Neutrophils (%) (Auto) 79.4 % (45.0-75.0) H 81.0 % (45.0-75.0) H Lymphocytes (%) (Auto) 10.8 % (20.0-45.0) L 10.8 % (20.0-45.0) L Monocytes (%) (Auto) 5.9 % (1.0-10.0) 5.7 % (1.0-10.0) Eosinophils (%) (Auto) 2.9 % (0.0-3.0) 2.0 % (0.0-3.0) Basophils (%) (Auto) 0.9 % (0.0-2.0) 0.5 % (0.0-2.0) Sodium Level 143 MMOL/L (136-145) 143 MMOL/L (136-145) Potassium Level 4.9 MMOL/L (3.5-5.1) 4.6 MMOL/L (3.5-5.1) Chloride Level 104 MMOL/L (98-107) 105 MMOL/L (98-107) Carbon Dioxide Level 30 MMOL/L (21-32) 28 MMOL/L (21-32) Anion Gap 9 mmol/L (5-15) 10 mmol/L (5-15) Blood Urea Nitrogen 20 mg/dL (7-18) H 19 mg/dL (7-18) H Creatinine 1.4 MG/DL (0.55-1.30) H 1.4 MG/DL (0.55-1.30) H Estimat Glomerular Filtration Rate 36.7 mL/min (>60) 36.7 mL/min (>60) Glucose Level 158 MG/DL (74-106) H 128 MG/DL (74-106) H Calcium Level 8.9 MG/DL (8.5-10.1) 9.1 MG/DL (8.5-10.1) Phosphorus Level 4.4 MG/DL (2.5-4.9) 3.8 MG/DL (2.5-4.9) Total Bilirubin 0.4 MG/DL (0.2-1.0) 0.3 MG/DL (0.2-1.0) Aspartate Amino Transf (AST/SGOT) 15 U/L (15-37) 12 U/L (15-37) L Alanine Aminotransferase (ALT/SGPT) 16 U/L (12-78) 17 U/L (12-78) Alkaline Phosphatase 102 U/L (46-116) 94 U/L (46-116) Total Protein 7.5 G/DL (6.4-8.2) 7.8 G/DL (6.4-8.2) Albumin 3.2 G/DL (3.4-5.0) L 2.9 G/DL (3.4-5.0) L Globulin 4.3 g/dL 4.9 g/dL Albumin/Globulin Ratio 0.7 (1.0-2.7) L 0.6 (1.0-2.7) L Urine Color Yellow Urine Appearance Clear Urine pH 5 (4.5-8.0) Urine Specific [place] 1.020 (1.005-1.035) Urine Protein 2+ (NEGATIVE) H Urine Glucose (UA) Negative (NEGATIVE) Urine Ketones Negative (NEGATIVE) Urine Blood Negative (NEGATIVE) Urine Nitrite Negative (NEGATIVE) Urine Bilirubin Negative (NEGATIVE) Urine Urobilinogen Normal MG/DL (0.0-1.0) Urine Leukocyte Esterase Negative (NEGATIVE) Urine RBC 0-2 /HPF (0 - 2) Urine WBC 0 /HPF (0 - 2) Urine Squamous Epithelial Cells Few /LPF (NONE/OCC) Urine Bacteria None /HPF (NONE) Magnesium Level 2.3 MG/DL (1.8-2.4) Triglycerides Level 61 MG/DL (30-150) Cholesterol Level 153 MG/DL (< 200) LDL Cholesterol 91 mg/dL (<100) HDL Cholesterol 55 MG/DL (40-60) Cholesterol/HDL Ratio 2.8 (3.3-4.4) L Amylase Level 48 U/L (25-115) Lipase 227 U/L (73-393) Plan Problems: (1) Pancreatitis Assessment & Plan: 74-year-old male with pancreatitis potentially believed to be related to biliary source. Biliary imaging reviewed as well as CT and unlikely. Pancreatitis potential related to medications or lipids. No acute surgical intervention indicated recommended. Will follow with recommendations. Thank you for let me participate in patient's care. Trend labs. Okay for diet. Patient currently asymptomatic from pancreatitis and chemical only. Findings: Gallbladder is distended, without stones, wall thickening, nor pericholecystic fluid. Sonographic Robins's sign is negative. Common bile duct measures 5 mm in diameter. No intrahepatic biliary it . Ductal dilatation. Liver demonstrates diffusely increased echogenicity, consistent with diffuse hepatocellular disease, most likely fatty change. It is somewhat enlarged. Portal vein and hepatic veins are patent. Pancreas is unremarkable. Spleen is unremarkable. Left kidney measures 8.9 cm in length. Right kidney measures 9.9 cm length. Both kidneys demonstrate normal echogenicity. The left kidney is poorly visualized. It demonstrates what appears to be hydronephrosis, but on earlier CT scan is demonstrated to be one or more parapelvic cysts.. Demonstrates an echogenic focus in the left renal sinus which is presumably artifactual as no calculi are demonstrated on earlier CT scan. Abdominal aorta is partially obscured by bowel gas, visualized portions are non-aneurysmal . Impression: Negative for gallstones or dilated bile ducts Enlarged fatty liver Left renal parapelvic cysts Note nonvisualization of portions of the abdominal aorta Findings: Numerous large abdominal and pelvic wall and flank collateral veins are demonstrated. There is marked narrowing of the bilateral external iliac arteries , and absence of the bilateral common iliac arteries. There is an inferior vena cava filter. There is absence of the inferior vena cava immediately below the filter. However, the lumen of the inferior vena cava or the filter is is presumably patent, opacified with contrast. There is mild gaseous distention of the sigmoid colon, without evidence of downstream obstruction. The appendix is not definitely identified, but no findings to suggest acute appendicitis are evident. No evidence of colonic diverticulosis or diverticulitis. No small bowel distention. No free or loculated intraperitoneal gas or fluid is evident. The gallbladder is distended. No gallstones. No biliary ductal dilatation. Liver demonstrates minimal fatty infiltration. No focal liver lesions. No biliary ductal dilatation. Pancreas is unremarkable. The spleen demonstrates a granulomatous calcification in the upper pole. The adrenals are hypertrophied. The right adrenal demonstrates a somewhat ill-defined 2.6 x 1.6 cm mass. The left adrenal demonstrates an ill-defined 1.4 x 1.6 cm mass. No retroperitoneal or mesenteric mass or adenopathy. The right kidney is unremarkable. The left kidney demonstrates a complex parapelvic cyst. The uterus is unremarkable. There is a calcification in the left ovary.. The bones are unremarkable except for a bone island in the right femoral head and considerable degenerative spondylosis changes. The heart is enlarged. The tip of a central venous catheter is seen at the cavoatrial junction. The lung bases demonstrate diffuse groundglass opacity. There are also some atelectatic changes. There are mitral annular calcifications. Impression: No acute abnormality Inferior vena cava filter. 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 Extensive abdominal wall collaterals noted. Mild fatty liver Bilateral adrenal masses, possibly adenomas. Consider adrenal protocol MRI for better characterization Cardiomegaly or graft cardiomegaly Basilar groundglass opacities, may reflect pulmonary edema. There are also basilar pulmonary atelectatic changes Incidental findings as noted, including central venous catheter, right femoral head bone island,, left ovarian calcification, evidence of old granulomatous disease within the spleen (2) Presence of IVC filter Assessment & Plan: Findings: The central venous catheter demonstrated on the earlier imaging studies is demonstrated to be the downstream end of a ventriculoatrial shunt. Shunt reservoir, occipital ankit hole, and intracranial portion are demonstrated on the lateral view. No prevertebral soft tissue swelling. No epiglottic swelling or hypopharyngeal distention. Impression: Previously questioned central venous catheter is demonstrated to actually represent the downstream end of a right-sided ventriculoatrial shunt Олег Webster Nov 01, 2019 14:13
--- NOTE | 2019-11-01 15:27 | NUR ---
CASE MANAGEMENT: TRANSFER NOTE CLINICALS FAXED TO [facility] [phone] JUAN FROM [facility] CONFIRMED THAT DR GUERRERO PLACED PATIENT ON TRANSFER LIST AWAITING FAX CONFIRMATION
[2019-11-01 16:00] VITALS: BP 154/86
--- NOTE | 2019-11-01 16:30 | Consultation ---
DATE OF CONSULTATION: 11/01/2019 CONSULTING PHYSICIAN: Cher Rollins M.D. REFERRING PHYSICIAN: Susan Salvador M.D. HISTORY OF PRESENT ILLNESS: The patient is a 74-year-old female with a history of morbid obesity as well as hypothyroidism, depression, hemorrhage, who has been admitted to the hospital for medical stabilization. The patient also has a history of DVT, neuropathy. The patient is on Cymbalta for depression and neuropathy. The patient is presenting with anxiety, depressed mood. PAST PSYCHIATRIC HISTORY: Depression and anxiety. PAST MEDICAL HISTORY: As above. ALLERGIES: No known drug allergies. SUBSTANCE ABUSE HISTORY: No known history of illicit drug use or alcohol. MENTAL STATUS EXAMINATION: The patient is alert, oriented times self, place, situation, and date. Mood is depressed. Affect is constricted, congruent with mood. Thought process is linear and goal oriented. Thought content, no suicidal or homicidal ideation. Cognition is impaired. Insight and judgment is fair. ASSESSMENT: Lehigh I Major depressive disorder. Lehigh II Deferred. Lehigh III As above. Lehigh IV Low. Lehigh V 20. PLAN: 1. We will start the patient on Cymbalta. 2. Provide the patient with reality orientation and supportive therapy. Cher Rollins M.D. DR: DANIA JOB#: [id number] CC:
--- NOTE | 2019-11-01 18:33 | General Progress Note ---
Assessment/Plan Assessment/Plan: This Is a 74-year-old female with a past medical history of hypothyroidism, AVM of brain, ICH secondary to AVM, gallstones who presents with pleuritic chest pain radiating to her back for 1 day. Found to have pancreatitis as well as left moderate hydronephrosis of kidney #Pleuritic chest pain, unclear etiology. Could be referred pain from pancreas or gallbladder. Now resolved #Pancreatitis, unclear etiology. Denies history of alcohol use and abdominal ultrasound negative for gallstones or cholecystitis. #Family history of pancreatic cancer #Acute hypoxic respiratory failure (Tachypnea) secondary to pulmonary edema- resolving #Sirs (WBC, tachypnea), no source at this time. Could be 2/2 pancreatitis -Telemetry -Trend troponins: negative x 3 -2D echocardiogram: Poor study. Grossly normal EF and no wall motion abnormalities. IVC normal size. -CT pulmonary angiogram to rule out PE: negative -GI consult for pancreatitis: Dr. Hermosillo - No interventions at this time. Recheck amylase and lipase. - Downtrending -Surgery consult for abdominal pain/referred chest pain and cholecystitis: Dr. Webster - No surgical interventions. - Discontinue fluids - CXR with persistent pulmonary edema- > Lasix 20mg IV x 1 -Zosyn (10/30 - )- Discontinue as no source of infection at this time -Blood cultures x2 #Suspect 4 mm thick right anterior convexity subdural hematoma, mostly subacute/old but with a focal small acute component, as described. Mild local mass effect. There is a more questionable focus of acute subdural hematoma along the lateral aspect of the tentorium on the left. #acute metabolic encephalopathy. 2/2 above - Transfer to [facility] for urgent Neurosurgical evaluation. Accepting neurosurgeon is Dr. Herbert Castillo - Extensive discussion with PCP Dr. Peters, patient, and family. All questions answered. - stat CT head - urinalysis - trend labs - continue Abx as above - Continue to monitor #Moderate hydronephrosis of left kidney of uncertain etiology #0.4 cm nonobstructing lower pole left kidney stone -urology consult: Dr. Bedolla - Suspect more of a renal cyst then hydronephrosis. no intervention for now -Trend creatinine -IV fluidsPatient as above #Elevated Cr. Unknown baseline -Continue to monitor -avoid nephrotoxins -trend Cr. #Left lower extremity DVT > S/p IVC filter - SCDs on right leg #Hypothyroidism -Continue home Synthroid #History of ICH secondary to AVM #History of AVM of brain #History of DVT status post IVC filter due to contraindication for anticoagulation #Absolute contraindication to any further anticoagulation. Discussed with patient. -Venous duplex ultrasound bilateral to confirm if any new DVTs- left lower extremity DVT #Bilateral adrenal adenomas -Will eventually need Endocrinology consult #Morbid obesity -Patient counseled patient on weight loss DVT prophylaxis: HSQ Code status: Full but no prolonged intubation I spent an additional 33 minutes of further face to face time on counseling and care coordination in addition to usual care as detailed above. Time of note may not reflect time patient was seen. Subjective Date patient seen: Nov 01, 2019 Allergies: Coded Allergies: No Known Allergies (Unverified , 10/30/19) Subjective Patient felt much better today. Still on 2L nasal cannula. CT head showed right frontal subdural hematoma and left subdural with possible acute component. Tx in process to [facility]. Otherwise feels better overall. Mental status is actually improving per patient. She denies any numbness tingling focal weakness headaches chest pain shortness of breath fever chills cough. She denies any dysuria or urinary symptoms. She feels well. Review of systems: As of 11/01/19 Constitutional: Denies: chills, diaphoresis, fever, malaise, weakness, other HEENT: Denies: eye pain, blurred vision, tearing, double vision, ear pain, ear discharge, nose pain, nose congestion, throat pain, throat swelling, mouth pain , mouth swelling, Cardiovascular: Denies: chest pain, edema, lightheadedness, palpitations, syncope, Respiratory: Denies: cough, orthopnea, shortness of breath, SOB with excertion , SOB at rest, sputum, stridor, wheezing, other +Endorses some SOB Gastrointestinal/Abdominal: Denies: abdomen distended, abdominal pain, black stools, tarry stools, blood in stool, constipated, diarrhea, difficulty swallowing, nausea, poor appetite, poor fluid intake, rectal bleeding, vomiting , other Genitourinary: Denies: burning, discharge, frequency, flank pain, hematuria, incontinence, pain, urgency, other Neurologic/Psychiatric: Denies: anxiety, depressed, emotional problems, headache, numbness, paresthesia, pre-existing deficit, seizure, tingling, tremors, weakness, other Endocrine: Denies: excessive sweating, flushing, intolerance to cold, intolerance to heat, increased hunger, increased thirst, increased urine, unexplained weight gain, unexplained weight loss, other MSK: denies joint pains, swelling, stiffness Hematologic/Lymphatic: Denies: anemia, easy bleeding, easy bruising, other Objective Last 24 Hour Vital Signs Date Time Temp Pulse Resp B/P (MAP) Pulse Ox O2 Delivery O2 Flow Rate FiO2 11/01/19 16:00 3.0 11/01/19 16:00 97.9 89 18 154/86 96 Nasal Cannula 3.0 11/01/19 16:00 85 11/01/19 16:00 Nasal Cannula 3.0 11/01/19 12:00 97.9 89 18 136/73 96 Nasal Cannula 3.0 11/01/19 12:00 Nasal Cannula 3.0 11/01/19 12:00 86 11/01/19 11:26 3.0 11/01/19 08:00 Nasal Cannula 3.0 11/01/19 08:00 98.9 92 18 137/72 94 Nasal Cannula 3.0 11/01/19 08:00 3.0 11/01/19 08:00 92 11/01/19 07:18 96 Nasal Cannula 3.0 32 11/01/19 04:00 Nasal Cannula 3.0 11/01/19 04:00 3.0 11/01/19 04:00 98.0 92 24 130/76 100 Nasal Cannula 3.0 11/01/19 03:30 90 11/01/19 01:53 94 18 100 Nasal Cannula 3.0 32 91 18 97 11/01/19 00:00 97.8 98 22 132/76 97 Nasal Cannula 3.0 11/01/19 00:00 Nasal Cannula 3.0 11/01/19 00:00 3.0 10/31/19 23:35 90 10/31/19 20:11 100 17 100 Nasal Cannula 2.0 28 97 18 97 10/31/19 20:00 92 10/31/19 20:00 3.0 10/31/19 20:00 Nasal Cannula 3.0 10/31/19 20:00 99.1 97 22 151/88 99 Nasal Cannula 3.0 Intake and Output 10/31/19 11/01/19 19:00 07:00 Intake Total 942.5 ml 337.5 ml Output Total 600 ml Balance 942.5 ml -262.5 ml Intake Oral 500 ml 200 ml IV Total 442.5 ml 137.5 ml Output Urine Total 600 ml # Voids 1 2 Laboratory Tests 10/31/19 21:15: White Blood Count 10.5, Red Blood Count 4.34, Hemoglobin 13.4, Hematocrit 40.7, Mean Corpuscular Volume 94, Mean Corpuscular Hemoglobin 30.8, Mean Corpuscular Hemoglobin Concent 32.8, Red Cell Distribution Width 12.9, Platelet Count 243, Mean Platelet Volume 8.2, Neutrophils (%) (Auto) 79.4H, Lymphocytes (%) (Auto) 10.8L, Monocytes (%) (Auto) 5.9, Eosinophils (%) (Auto) 2.9, Basophils (%) (Auto ) 0.9, Sodium Level 143, Potassium Level 4.9, Chloride Level 104, Carbon Dioxide Level 30, Anion Gap 9, Blood Urea Nitrogen 20H, Creatinine 1.4H, Estimat Glomerular Filtration Rate 36.7, Glucose Level 158H, Calcium Level 8.9, Phosphorus Level 4.4, Total Bilirubin 0.4, Aspartate Amino Transf (AST/SGOT) 15 , Alanine Aminotransferase (ALT/SGPT) 16, Alkaline Phosphatase 102, Total Protein 7.5, Albumin 3.2L, Globulin 4.3, Albumin/Globulin Ratio 0.7L 10/31/19 21:20: Urine Color Yellow, Urine Appearance Clear, Urine pH 5, Urine Specific [place] 1.020, Urine Protein 2+H, Urine Glucose (UA) Negative, Urine Ketones Negative, Urine Blood Negative, Urine Nitrite Negative, Urine Bilirubin Negative, Urine Urobilinogen Normal, Urine Leukocyte Esterase Negative, Urine RBC 0-2, Urine WBC 0, Urine Squamous Epithelial Cells Few, Urine Bacteria None 11/01/19 03:45: White Blood Count 11.9H, Red Blood Count 4.17L, Hemoglobin 12.9, Hematocrit 39.3 , Mean Corpuscular Volume 94, Mean Corpuscular Hemoglobin 30.9, Mean Corpuscular Hemoglobin Concent 32.7, Red Cell Distribution Width 13.1, Platelet Count 227, Mean Platelet Volume 8.2, Neutrophils (%) (Auto) 81.0H, Lymphocytes ( %) (Auto) 10.8L, Monocytes (%) (Auto) 5.7, Eosinophils (%) (Auto) 2.0, Basophils (%) (Auto) 0.5, Sodium Level 143, Potassium Level 4.6, Chloride Level 105, Carbon Dioxide Level 28, Anion Gap 10, Blood Urea Nitrogen 19H, Creatinine 1.4H, Estimat Glomerular Filtration Rate 36.7, Glucose Level 128H, Calcium Level 9.1, Phosphorus Level 3.8, Total Bilirubin 0.3, Aspartate Amino Transf ( AST/SGOT) 12L, Alanine Aminotransferase (ALT/SGPT) 17, Alkaline Phosphatase 94, Total Protein 7.8, Albumin 2.9L, Globulin 4.9, Albumin/Globulin Ratio 0.6L, Magnesium Level 2.3, Triglycerides Level 61, Cholesterol Level 153, LDL Cholesterol 91, HDL Cholesterol 55, Cholesterol/HDL Ratio 2.8L, Amylase Level 48 , Lipase 227 Height (Feet): 5 Height (Inches): 3.00 Weight (Pounds): 324 Objective General: WDWN female in NAD, A&O x 4 HEENT: Normocephalic cephalic atraumatic, pupils equal round reactive to light and accommodation, nares patent and no symmetrical, no tonsillar exudates, mucous membranes moist CV: Regular rate regular rhythm, no murmurs, rubs, or gallops Pulm: Lung exam difficult to perform given body habitus. No wheezes, rhonchi, or rales GI: Soft, nontender, nondistended, bowel sounds present Neuro: CN 2-12 intact bilaterally, no focal signs. Ext: No lower extremity edema bilaterally Skin: no rashes lesions or ulcers Msk: Joints symmetrical in upper extremity and lower extremity bilaterally, no joint swelling. Lymph: No lymphadenopathy in upper extremity and lower extremity Luis Godoy D.O. Nov 01, 2019 18:33
--- NOTE | 2019-11-01 19:05 | NUR ---
NURSE NOTES: Received patient from OSCAR Brown. Patient is aaox4, vss, with no acute distress. Patient is talkative, cooperative, and well groomed. Patient is on a regular diet, bus driver/monitor, 3L NC, with left hand 22g and right upper arm 20g. Skin is intact. Bed at its lowest position call light in reach. Will continue to monitor.
[2019-11-02] VITALS: BP 138/78
--- NOTE | 2019-11-02 | NUR ---
NURSE NOTES: Patient c/o pain in her right shoulder non radiating. Hot pack applied. to tight muscles. No other symptoms noted. No acute distress noted.
--- NOTE | 2019-11-02 00:15 | NUR ---
NURSE NOTES: Heating pad checked with no skin issues noted.
--- NOTE | 2019-11-02 00:30 | NUR ---
NURSE NOTES: Hot packs removed from right sholder with no skin issues noted.
[2019-11-02] MEDS: Albuterol/Ipratropium 3ml neb HHN SCH ×4 (01:00→20:05)
--- NOTE | 2019-11-02 03:00 | NUR ---
NURSE NOTES: Patient is resting comfortably.
[2019-11-02 04:00] VITALS: BP 149/81
--- NOTE | 2019-11-02 06:00 | NUR ---
NURSE NOTES: Patient woke up confused and angry. Patient refused any care and stated that she was fine. Patient demanded that I call her daughter. After trying to contact patient's daughter i returned to the room and the patient pulled out both of her IVs. No bleeding noted. Patient continues to be confused and resistant to care. Patient is messaging daughter on her personal phone.
[2019-11-02] MEDS: NovoLOG Insulin Flexpen SUBQ SCH ×4 (06:30→20:33)
--- NOTE | 2019-11-02 07:13 | NUR ---
RESPIRATORY NOTE: Pt refused breathing TX Robbie, stated that " my left shoulder, chest and the back are hurt every time I take a breath with breathing TX". RN Mingerdag aware. Pt is awake. alert, oriented, no SOB or resp distress note. Will continue to monitor.
--- NOTE | 2019-11-02 07:24 | General Progress Note ---
Assessment/Plan Assessment/Plan: 1. Hypothyroidism. 2. 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 3. Morbid obesity. 4. History of DVT requiring IVC filter placement. 5. History of cataract requiring surgery. no evidence of pancreatitis improved amylase and lipase on diet will fu Subjective ROS Limited/Unobtainable: Yes Allergies: Coded Allergies: No Known Allergies (Unverified , 10/30/19) Objective Last 24 Hour Vital Signs Date Time Temp Pulse Resp B/P (MAP) Pulse Ox O2 Delivery O2 Flow Rate FiO2 11/02/19 07:10 95 Nasal Cannula 2.0 28 11/02/19 04:00 Nasal Cannula 3.0 11/02/19 04:00 98.4 83 20 149/81 96 Nasal Cannula 3.0 11/02/19 04:00 3.0 11/02/19 03:56 85 11/02/19 00:00 83 11/02/19 00:00 3.0 11/02/19 00:00 98.2 82 20 138/78 96 Nasal Cannula 3.0 11/02/19 00:00 Nasal Cannula 3.0 11/01/19 20:00 Nasal Cannula 3.0 11/01/19 20:00 3.0 11/01/19 20:00 87 11/01/19 19:17 88 18 100 Nasal Cannula 3.0 32 86 18 96 11/01/19 19:17 96 Nasal Cannula 3.0 32 11/01/19 16:00 3.0 11/01/19 16:00 97.9 89 18 154/86 96 Nasal Cannula 3.0 11/01/19 16:00 85 11/01/19 16:00 Nasal Cannula 3.0 11/01/19 12:00 97.9 89 18 136/73 96 Nasal Cannula 3.0 11/01/19 12:00 Nasal Cannula 3.0 11/01/19 12:00 86 11/01/19 11:26 3.0 11/01/19 08:00 Nasal Cannula 3.0 11/01/19 08:00 98.9 92 18 137/72 94 Nasal Cannula 3.0 11/01/19 08:00 3.0 11/01/19 08:00 92 Intake and Output 11/01/19 11/02/19 19:00 07:00 Output Total 50 ml 900 ml Balance -50 ml -900 ml Output Urine Total 50 ml 900 ml # Voids 1 1 Laboratory Tests 11/02/19 04:23: White Blood Count [Pending], Red Blood Count [Pending], Hemoglobin [Pending], Hematocrit [Pending], Mean Corpuscular Volume [Pending], Mean Corpuscular Hemoglobin [Pending], Mean Corpuscular Hemoglobin Concent [Pending], Red Cell Distribution Width [Pending], Platelet Count [Pending], Mean Platelet Volume [ Pending], Neutrophils (%) (Auto) [Pending], Lymphocytes (%) (Auto) [Pending], Monocytes (%) (Auto) [Pending], Eosinophils (%) (Auto) [Pending], Basophils (%) (Auto) [Pending], Sodium Level [Pending], Potassium Level [Pending], Chloride Level [Pending], Carbon Dioxide Level [Pending], Blood Urea Nitrogen [Pending], Creatinine [Pending], Estimat Glomerular Filtration Rate [Pending], Glucose Level [Pending], Calcium Level [Pending], Phosphorus Level [Pending], Magnesium Level [Pending] Height (Feet): 5 Height (Inches): 3.00 Weight (Pounds): 324 General Appearance: alert EENT: normal ENT inspection Neck: supple Cardiovascular: normal rate Respiratory/Chest: decreased breath sounds Abdomen: normal bowel sounds, non tender, soft Extremities: non-tender Stephen Hermosillo MD Nov 02, 2019 07:24
--- NOTE | 2019-11-02 07:29 | NUR ---
HAND-OFF: Report given to OSCAR Jane.
[2019-11-02 07:30] LABS: ANION GAP 7 mmol/L (5-15); BLOOD UREA NITROGEN 21 mg/dL (7-18); CALCIUM 9.3 MG/DL (8.5-10.1); CARBON DIOXIDE 34 MMOL/L (21-32); CHLORIDE 102 MMOL/L (98-107); CREATININE 1.2 MG/DL (0.55-1.30); PHOSPHORUS 3.5 MG/DL (2.5-4.9); SODIUM 143 MMOL/L (136-145)
--- NOTE | 2019-11-02 07:35 | NUR ---
NURSE NOTES: Received report from Isiah MOORE. Pt in bed awake and oriented x3 and able to make needs known. No IV site noted and the patient refused to have new IV. The patient states that "i am going to sign out for the hospital today with AMA and my daughter will pick me up today" Will contact the daughter, adam for discharge plan. On 2LPM O2 via N/C and noted O2 sat with 95-96% on 2LPM. Side railsx3 up for safety. Call light within easy reach. Will continue to plan of care.
--- NOTE | 2019-11-02 07:59 | NUR ---
NURSE NOTES: Noted O2 Sat 94% on room air. Pt's daughter, Judith is present at the bedside and asking to discharge the patient today or she will sign for AMA. ericka Phillips paged and awaiting for reply
[2019-11-02 08:00] VITALS: BP 134/81
[2019-11-02 08:22] LABS: BASOPHILS % (AUTO) 0.4 % (0.0-2.0); EOSINOPHILS % (AUTO) 2.3 % (0.0-3.0); HEMATOCRIT 38.8 % (37.0-47.0); HEMOGLOBIN 12.8 G/DL (12.0-16.0); LYMPHOCYTES % (AUTO) 9.5 % (20.0-45.0); MEAN CORPUSCULAR VOLUME 94 FL (80-99); MONOCYTES % (AUTO) 5.9 % (1.0-10.0); PLATELET COUNT 222 K/UL (150-450); RED BLOOD COUNT 4.14 M/UL (4.20-5.40); RED CELL DISTRIBUTION WIDTH 13.1 % (11.6-14.8); WHITE BLOOD COUNT 11.6 K/UL (4.8-10.8)
--- NOTE | 2019-11-02 09:12 | Urology Progress Note ---
Assessment/Plan Assessment/Plan: 1. Questionable hydronephrosis. 2. Renal cyst. 3. Renal calcification. 4. Urinary frequency. 5. Possible neurogenic bladder. 6. mild CORINNA, improved. monitor clinically d/w radiologist no obvious hydro noted on CT monitor renal fxn s/p abx f/u on blood cx d/w primary service Subjective Allergies: Coded Allergies: No Known Allergies (Unverified , 10/30/19) Subjective looks comfortable Objective Last 24 Hour Vital Signs Date Time Temp Pulse Resp B/P (MAP) Pulse Ox O2 Delivery O2 Flow Rate FiO2 11/02/19 08:00 99.1 86 19 134/81 93 Nasal Cannula 3.0 86 11/02/19 07:10 95 Nasal Cannula 2.0 28 11/02/19 04:00 Nasal Cannula 3.0 11/02/19 04:00 98.4 83 20 149/81 96 Nasal Cannula 3.0 11/02/19 04:00 3.0 11/02/19 03:56 85 11/02/19 00:00 83 11/02/19 00:00 3.0 11/02/19 00:00 98.2 82 20 138/78 96 Nasal Cannula 3.0 11/02/19 00:00 Nasal Cannula 3.0 11/01/19 20:00 Nasal Cannula 3.0 11/01/19 20:00 3.0 11/01/19 20:00 87 11/01/19 19:17 88 18 100 Nasal Cannula 3.0 32 86 18 96 11/01/19 19:17 96 Nasal Cannula 3.0 32 11/01/19 16:00 3.0 11/01/19 16:00 97.9 89 18 154/86 96 Nasal Cannula 3.0 11/01/19 16:00 85 11/01/19 16:00 Nasal Cannula 3.0 11/01/19 12:00 97.9 89 18 136/73 96 Nasal Cannula 3.0 11/01/19 12:00 Nasal Cannula 3.0 11/01/19 12:00 86 11/01/19 11:26 3.0 Intake and Output 11/01/19 11/02/19 19:00 07:00 Output Total 50 ml 900 ml Balance -50 ml -900 ml Output Urine Total 50 ml 900 ml # Voids 1 1 Microbiology Date/Time Source Procedure Growth Status 10/30/19 23:50 Blood Blood Culture - Preliminary NO GROWTH AFTER 48 HOURS Resulted 10/30/19 15:30 Nasal Nares - Final Complete 10/30/19 15:30 Nasal Nares - Final Complete Current Medications Medications (Trade) Dose Ordered Sig/Cecily Route PRN Reason Start Time Stop Time Status Last Admin Dose Admin Albuterol/ Ipratropium (Albuterol/ Ipratropium) 3 ml Q6H PRN HHN wheezing/SOB 10/30/19 19:45 11/04/19 19:44 Albuterol/ Ipratropium (Albuterol/ Ipratropium) 3 ml Q6HRT HHN 10/31/19 14:00 11/05/19 13:59 11/01/19 19:15 Bisacodyl (Dulcolax) 10 mg HSPRN PRN RECTAL Constipation 10/30/19 18:30 11/29/19 18:29 Dextrose (Dextrose 50%) 25 ml Q30M PRN IV Hypoglycemia 10/30/19 18:30 11/29/19 18:29 Dextrose (Dextrose 50%) 50 ml Q30M PRN IV Hypoglycemia 10/30/19 18:30 11/29/19 18:29 Docusate Sodium (Colace) 100 mg EVERY 12 HOURS ORAL 10/30/19 22:00 11/29/19 21:59 11/01/19 21:37 Insulin Aspart (NovoLOG) BEFORE MEALS AND HS SUBQ 10/30/19 21:00 11/29/19 20:59 10/31/19 20:40 Levothyroxine Sodium (Synthroid) 100 mcg DAILY@0630 ORAL 11/01/19 06:30 12/01/19 06:29 11/02/19 06:33 Magnesium Hydroxide (Mom) 30 ml HSPRN PRN ORAL Constipation 10/30/19 18:30 11/29/19 18:29 Pantoprazole (Protonix) 40 mg DAILY IV 10/30/19 22:00 11/29/19 21:59 11/01/19 08:48 Polyethylene Glycol (Miralax) 17 gm HSPRN PRN ORAL Constipation 10/30/19 18:30 11/29/19 18:29 Prochlorperazine (Compazine) 10 mg Q6H PRN IVP Nausea & Vomiting 10/30/19 18:30 11/29/19 18:29 11/01/19 01:09 Laboratory Tests 11/02/19 04:23: White Blood Count 11.6H, Red Blood Count 4.14L, Hemoglobin 12.8, Hematocrit 38.8 , Mean Corpuscular Volume 94, Mean Corpuscular Hemoglobin 30.9, Mean Corpuscular Hemoglobin Concent 33.0, Red Cell Distribution Width 13.1, Platelet Count 222, Mean Platelet Volume 7.8, Neutrophils (%) (Auto) 82.0H, Lymphocytes ( %) (Auto) 9.5L, Monocytes (%) (Auto) 5.9, Eosinophils (%) (Auto) 2.3, Basophils (%) (Auto) 0.4, Sodium Level 143, Potassium Level 4.0, Chloride Level 102, Carbon Dioxide Level 34H, Anion Gap 7, Blood Urea Nitrogen 21H, Creatinine 1.2, Estimat Glomerular Filtration Rate 43.8, Glucose Level 99, Calcium Level 9.3, Phosphorus Level 3.5, Magnesium Level 2.2 Height (Feet): 5 Height (Inches): 3.00 Weight (Pounds): 324 Objective exam stable Raymundo Bedolla MD Nov 02, 2019 09:12
[2019-11-02] MEDS: Pantoprazole Inj IV SCH (09:48)
[2019-11-02] MEDS: Docusate 100mg cap ORAL SCH ×2 (09:48→20:33)
[2019-11-02] MEDS: traMADol 50mg tab ORAL PRN (09:56)
--- NOTE | 2019-11-02 11:30 | NUR ---
NURSE NOTES: oral care given, changed whole bed, applied new purewick. pt states no pain at this moment. call light within reach.
[2019-11-02 11:52] VITALS: BP 130/79
--- NOTE | 2019-11-02 12:46 | General Progress Note ---
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 On admission pt found to have pancreatitis as well as left moderate hydronephrosis of kidney. #Pleuritic chest pain, unclear etiology. Could be referred pain from pancreas or gallbladder. Now resolved #Pancreatitis, unclear etiology. Denies history of alcohol use and abdominal ultrasound negative for gallstones or cholecystitis. #Family history of pancreatic cancer #Acute hypoxic respiratory failure (Tachypnea) secondary to pulmonary edema- resolving #Sirs (WBC, tachypnea), no source at this time. Could be 2/2 pancreatitis -Telemetry -Troponins negative x 3 -2D echocardiogram: Poor study. Grossly normal EF and no wall motion abnormalities. IVC normal size. -CT pulmonary angiogram negative for PE -GI consult for pancreatitis: Dr. Hermosillo - No interventions at this time. Amylase and lipase. - Downtrending -Surgery consult for abdominal pain/referred chest pain and cholecystitis: Dr. Webster - No surgical interventions. - Discontinue fluids - CXR with persistent pulmonary edema- > s/p Lasix 20mg IV x 1, appears euvolemic on exam -Zosyn (10/30 -11/01)- Discontinued as no source of infection -Blood cultures x2 NGTD - pain control #Suspect 4 mm thick right anterior convexity subdural hematoma, mostly subacute/old but with a focal small acute component, as described. Mild local mass effect. There is a more questionable focus of acute subdural hematoma along the lateral aspect of the tentorium on the left. #acute metabolic encephalopathy. 2/2 above - Transfer to [facility] for urgent Neurosurgical evaluation. Accepting neurosurgeon is Dr. Herbert Castillo - Extensive discussion with PCP Dr. Peters, patient, and family. All questions answered. - D/W Dr. Castillo, will cont. transfer, Transfer pending - CT head as above - cont. to trend labs - off Abx - Continue to monitor #Moderate hydronephrosis of left kidney of uncertain etiology #0.4 cm nonobstructing lower pole left kidney stone -urology consult: Dr. Bamshad - Suspect more of a renal cyst then hydronephrosis. no intervention for now -Trend creatinine -IV fluids as above #Elevated Cr. Unknown baseline -Continue to monitor -avoid nephrotoxins -trend Cr. #Left lower extremity DVT > S/p IVC filter - SCDs on right leg #Hypothyroidism -Continue home Synthroid #History of ICH secondary to AVM #History of AVM of brain #History of DVT status post IVC filter due to contraindication for anticoagulation #Absolute contraindication to any further anticoagulation. Discussed with patient. -Venous duplex ultrasound bilateral to confirm if any new DVTs- left lower extremity DVT #Bilateral adrenal adenomas -Will eventually need Endocrinology consult #Morbid obesity -Patient counseled patient on weight loss DVT prophylaxis: HSQ Code status: Full but no prolonged intubation I spent an additional 33 minutes of further face to face time on counseling and care coordination in addition to usual care as detailed above. Time of note may not reflect time patient was seen. Subjective HEENT: Reports: no symptoms Cardiovascular: Reports: no symptoms Respiratory: Reports: no symptoms Gastrointestinal/Abdominal: Reports: no symptoms Genitourinary: Reports: no symptoms Neurologic/Psychiatric: Reports: no symptoms Allergies: Coded Allergies: No Known Allergies (Unverified , 10/30/19) Subjective Daughter at bedside wanting to take pt AMA, d/w daughter and pt concerns and daughter stated pt cont. to have b/l shoulder pain similar to admission, daughter states pt's mental state is back to b/l however wanted to leave AMA so that pt can be seen at [facility]. Explained to daughter and pt that pain will be addressed and advised pt to stay so that there can be safe transport to [facility]. Family expressed understanding and stated they will cont. care here. Pt denies any BUCKLEY, vision changes, dizziness, CP, SOB, abd pain, dysuria at this time. Objective Last 24 Hour Vital Signs Date Time Temp Pulse Resp B/P (MAP) Pulse Ox O2 Delivery O2 Flow Rate FiO2 11/02/19 11:52 98.9 83 18 130/79 95 Nasal Cannula 3.0 11/02/19 08:00 99.1 86 19 134/81 93 Nasal Cannula 3.0 86 11/02/19 08:00 Nasal Cannula 3.0 11/02/19 08:00 87 11/02/19 08:00 3.0 11/02/19 07:10 95 Nasal Cannula 2.0 28 2/22/20 04:00 Nasal Cannula 3.0 11/02/19 04:00 98.4 83 20 149/81 96 Nasal Cannula 3.0 11/02/19 04:00 3.0 11/02/19 03:56 85 11/02/19 00:00 83 11/02/19 00:00 3.0 11/02/19 00:00 98.2 82 20 138/78 96 Nasal Cannula 3.0 11/02/19 00:00 Nasal Cannula 3.0 11/01/19 20:00 Nasal Cannula 3.0 11/01/19 20:00 3.0 11/01/19 20:00 87 11/01/19 19:17 88 18 100 Nasal Cannula 3.0 32 86 18 96 11/01/19 19:17 96 Nasal Cannula 3.0 32 11/01/19 16:00 3.0 11/01/19 16:00 97.9 89 18 154/86 96 Nasal Cannula 3.0 11/01/19 16:00 85 11/01/19 16:00 Nasal Cannula 3.0 Intake and Output 11/01/19 11/02/19 19:00 07:00 Output Total 50 ml 900 ml Balance -50 ml -900 ml Output Urine Total 50 ml 900 ml # Voids 1 1 Laboratory Tests 11/02/19 04:23: White Blood Count 11.6H, Red Blood Count 4.14L, Hemoglobin 12.8, Hematocrit 38.8 , Mean Corpuscular Volume 94, Mean Corpuscular Hemoglobin 30.9, Mean Corpuscular Hemoglobin Concent 33.0, Red Cell Distribution Width 13.1, Platelet Count 222, Mean Platelet Volume 7.8, Neutrophils (%) (Auto) 82.0H, Lymphocytes ( %) (Auto) 9.5L, Monocytes (%) (Auto) 5.9, Eosinophils (%) (Auto) 2.3, Basophils (%) (Auto) 0.4, Sodium Level 143, Potassium Level 4.0, Chloride Level 102, Carbon Dioxide Level 34H, Anion Gap 7, Blood Urea Nitrogen 21H, Creatinine 1.2, Estimat Glomerular Filtration Rate 43.8, Glucose Level 99, Calcium Level 9.3, Phosphorus Level 3.5, Magnesium Level 2.2 Height (Feet): 5 Height (Inches): 3.00 Weight (Pounds): 324 Objective General: WDWN female in NAD, A&O x 4 HEENT: Normocephalic cephalic atraumatic, pupils equal round reactive to light and accommodation, nares patent and no symmetrical, no tonsillar exudates, mucous membranes moist CV: Regular rate regular rhythm, no murmurs, rubs, or gallops Pulm: Lung exam difficult to perform given body habitus. No wheezes, rhonchi, or rales, on NC GI: Soft, nontender, nondistended, bowel sounds present Neuro: CN 2-12 intact bilaterally, no focal signs. Ext: No lower extremity edema bilaterally Skin: no rashes lesions or ulcers Msk: Joints symmetrical in upper extremity and lower extremity bilaterally, no joint swelling. Lymph: No lymphadenopathy in upper extremity and lower extremity Luke Aguilar M.D. Nov 02, 2019 12:46
--- NOTE | 2019-11-02 12:54 | Surgery Progress Note ---
Surgery Progress Note Subjective Symptoms: improved, tolerating diet, voiding well, passing flatus, pain decreased Objective Last 24 Hour Vital Signs Date Time Temp Pulse Resp B/P (MAP) Pulse Ox O2 Delivery O2 Flow Rate FiO2 11/02/19 12:00 3.0 11/02/19 12:00 83 11/02/19 12:00 Nasal Cannula 3.0 11/02/19 11:52 98.9 83 18 130/79 95 Nasal Cannula 3.0 11/02/19 08:00 99.1 86 19 134/81 93 Nasal Cannula 3.0 86 11/02/19 08:00 Nasal Cannula 3.0 11/02/19 08:00 87 11/02/19 08:00 3.0 11/02/19 07:10 95 Nasal Cannula 2.0 28 11/02/19 04:00 Nasal Cannula 3.0 11/02/19 04:00 98.4 83 20 149/81 96 Nasal Cannula 3.0 11/02/19 04:00 3.0 11/02/19 03:56 85 11/02/19 00:00 83 11/02/19 00:00 3.0 11/02/19 00:00 98.2 82 20 138/78 96 Nasal Cannula 3.0 11/02/19 00:00 Nasal Cannula 3.0 11/01/19 20:00 Nasal Cannula 3.0 11/01/19 20:00 3.0 11/01/19 20:00 87 11/01/19 19:17 88 18 100 Nasal Cannula 3.0 32 86 18 96 11/01/19 19:17 96 Nasal Cannula 3.0 32 11/01/19 16:00 3.0 11/01/19 16:00 97.9 89 18 154/86 96 Nasal Cannula 3.0 11/01/19 16:00 85 11/01/19 16:00 Nasal Cannula 3.0 I&O Intake and Output 11/01/19 11/02/19 19:00 07:00 Output Total 50 ml 900 ml Balance -50 ml -900 ml Output Urine Total 50 ml 900 ml # Voids 1 1 Cardiovascular: RSR Respiratory: clear Abdomen: soft, flat, non-tender, present bowel sounds Extremities: no cyanosis Laboratory Tests Test 11/02/19 04:23 White Blood Count 11.6 K/UL (4.8-10.8) H Red Blood Count 4.14 M/UL (4.20-5.40) L Hemoglobin 12.8 G/DL (12.0-16.0) Hematocrit 38.8 % (37.0-47.0) Mean Corpuscular Volume 94 FL (80-99) Mean Corpuscular Hemoglobin 30.9 PG (27.0-31.0) Mean Corpuscular Hemoglobin Concent 33.0 G/DL (32.0-36.0) Red Cell Distribution Width 13.1 % (11.6-14.8) Platelet Count 222 K/UL (150-450) Mean Platelet Volume 7.8 FL (6.5-10.1) Neutrophils (%) (Auto) 82.0 % (45.0-75.0) H Lymphocytes (%) (Auto) 9.5 % (20.0-45.0) L Monocytes (%) (Auto) 5.9 % (1.0-10.0) Eosinophils (%) (Auto) 2.3 % (0.0-3.0) Basophils (%) (Auto) 0.4 % (0.0-2.0) Sodium Level 143 MMOL/L (136-145) Potassium Level 4.0 MMOL/L (3.5-5.1) Chloride Level 102 MMOL/L (98-107) Carbon Dioxide Level 34 MMOL/L (21-32) H Anion Gap 7 mmol/L (5-15) Blood Urea Nitrogen 21 mg/dL (7-18) H Creatinine 1.2 MG/DL (0.55-1.30) Estimat Glomerular Filtration Rate 43.8 mL/min (>60) Glucose Level 99 MG/DL (74-106) Calcium Level 9.3 MG/DL (8.5-10.1) Phosphorus Level 3.5 MG/DL (2.5-4.9) Magnesium Level 2.2 MG/DL (1.8-2.4) Plan Problems: (1) Pancreatitis Assessment & Plan: 74-year-old male with pancreatitis potentially believed to be related to biliary source. Biliary imaging reviewed as well as CT and unlikely. Pancreatitis potential related to medications or lipids. No acute surgical intervention indicated recommended. Will follow with recommendations. Thank you for let me participate in patient's care. Trend labs. Okay for diet. Patient currently asymptomatic from pancreatitis and chemical only. Findings: Gallbladder is distended, without stones, wall thickening, nor pericholecystic fluid. Sonographic Robins's sign is negative. Common bile duct measures 5 mm in diameter. No intrahepatic biliary it . Ductal dilatation. Liver demonstrates diffusely increased echogenicity, consistent with diffuse hepatocellular disease, most likely fatty change. It is somewhat enlarged. Portal vein and hepatic veins are patent. Pancreas is unremarkable. Spleen is unremarkable. Left kidney measures 8.9 cm in length. Right kidney measures 9.9 cm length. Both kidneys demonstrate normal echogenicity. The left kidney is poorly visualized. It demonstrates what appears to be hydronephrosis, but on earlier CT scan is demonstrated to be one or more parapelvic cysts.. Demonstrates an echogenic focus in the left renal sinus which is presumably artifactual as no calculi are demonstrated on earlier CT scan. Abdominal aorta is partially obscured by bowel gas, visualized portions are non-aneurysmal . Impression: Negative for gallstones or dilated bile ducts Enlarged fatty liver Left renal parapelvic cysts Note nonvisualization of portions of the abdominal aorta Findings: Numerous large abdominal and pelvic wall and flank collateral veins are demonstrated. There is marked narrowing of the bilateral external iliac arteries , and absence of the bilateral common iliac arteries. There is an inferior vena cava filter. There is absence of the inferior vena cava immediately below the filter. However, the lumen of the inferior vena cava or the filter is is presumably patent, opacified with contrast. There is mild gaseous distention of the sigmoid colon, without evidence of downstream obstruction. The appendix is not definitely identified, but no findings to suggest acute appendicitis are evident. No evidence of colonic diverticulosis or diverticulitis. No small bowel distention. No free or loculated intraperitoneal gas or fluid is evident. The gallbladder is distended. No gallstones. No biliary ductal dilatation. Liver demonstrates minimal fatty infiltration. No focal liver lesions. No biliary ductal dilatation. Pancreas is unremarkable. The spleen demonstrates a granulomatous calcification in the upper pole. The adrenals are hypertrophied. The right adrenal demonstrates a somewhat ill-defined 2.6 x 1.6 cm mass. The left adrenal demonstrates an ill-defined 1.4 x 1.6 cm mass. No retroperitoneal or mesenteric mass or adenopathy. The right kidney is unremarkable. The left kidney demonstrates a complex parapelvic cyst. The uterus is unremarkable. There is a calcification in the left ovary.. The bones are unremarkable except for a bone island in the right femoral head and considerable degenerative spondylosis changes. The heart is enlarged. The tip of a central venous catheter is seen at the cavoatrial junction. The lung bases demonstrate diffuse groundglass opacity. There are also some atelectatic changes. There are mitral annular calcifications. Impression: No acute abnormality Inferior vena cava filter. 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 Extensive abdominal wall collaterals noted. Mild fatty liver Bilateral adrenal masses, possibly adenomas. Consider adrenal protocol MRI for better characterization Cardiomegaly or graft cardiomegaly Basilar groundglass opacities, may reflect pulmonary edema. There are also basilar pulmonary atelectatic changes Incidental findings as noted, including central venous catheter, right femoral head bone island,, left ovarian calcification, evidence of old granulomatous disease within the spleen (2) Presence of IVC filter Assessment & Plan: Findings: The central venous catheter demonstrated on the earlier imaging studies is demonstrated to be the downstream end of a ventriculoatrial shunt. Shunt reservoir, occipital ankit hole, and intracranial portion are demonstrated on the lateral view. No prevertebral soft tissue swelling. No epiglottic swelling or hypopharyngeal distention. Impression: Previously questioned central venous catheter is demonstrated to actually represent the downstream end of a right-sided ventriculoatrial shunt Олег Webster Nov 02, 2019 12:54
[2019-11-02 16:00] VITALS: BP 137/78
[2019-11-02] MEDS ORDERED: NS 275ml ONE (16:29)
--- NOTE | 2019-11-02 19:22 | NUR ---
HAND-OFF: Report given to Kortney MOORE. Pt remains stable.
--- NOTE | 2019-11-02 19:23 | NUR ---
NURSE NOTES: received pt from Min RN., pt is resting, awake and AO x4. pt is on 2L of NC and O2sat is at 95% at this moment. pt has purewick on. skin intact. right FA IV 22G is intact, clean, and patent. no dysrythmia reported from the previous nurse. bed at the lowest position, locked, and alarmed. call light within reach. will continue to monitor pt with plan of care.
[2019-11-02 20:00] VITALS: BP 137/72
[2019-11-03] VITALS: BP 129/67
--- NOTE | 2019-11-03 02:15 | Progress Note ---
DATE: 11/02/2019 SUBJECTIVE: The patient is in bed, no acute distress noted. Calm, calm cooperative, presents with depressed mood, anhedonia, worthlessness, and hopelessness. MENTAL STATUS EXAMINATION: The patient is alert and oriented times self, place, and situation, . Mood is neutral. Affect is flat. Thought process is concrete. Thought content, no suicidal or homicidal ideation. Cognition is intact. Insight and judgment is fair. ASSESSMENT: Major depressive disorder. PLAN: 1. Start on Cymbalta 30 mg in the morning. 2. Provide the patient with reality orientation and supportive therapy. Cher Rollins M.D. DR: Miya JOB#: [id number] CC:
[2019-11-03] MEDS: Albuterol/Ipratropium 3ml neb HHN SCH ×4 (02:38→21:43)
[2019-11-03 04:00] VITALS: BP 137/78
[2019-11-03] MEDS: NovoLOG Insulin Flexpen SUBQ SCH (05:51)
--- NOTE | 2019-11-03 06:55 | General Progress Note ---
Assessment/Plan Assessment/Plan: 1. Hypothyroidism. 2. History of cerebral bleeding secondary to aneurysm, status post treatment at [facility]. 3. Morbid obesity. 4. History of DVT requiring IVC filter placement. 5. History of cataract requiring surgery. no evidence of pancreatitis improved amylase and lipase on diet pending tranfer to [facility] for neurosurgery will fu Subjective ROS Limited/Unobtainable: Yes Allergies: Coded Allergies: No Known Allergies (Unverified , 10/30/19) Objective Last 24 Hour Vital Signs Date Time Temp Pulse Resp B/P (MAP) Pulse Ox O2 Delivery O2 Flow Rate FiO2 11/03/19 04:00 Nasal Cannula 3.0 11/03/19 04:00 98.4 83 20 137/78 95 Nasal Cannula 3.0 11/03/19 04:00 3.0 11/03/19 03:32 85 11/03/19 02:00 88 20 99 Nasal Cannula 3.0 32 86 20 98 11/03/19 00:00 98.2 80 20 129/67 95 Nasal Cannula 3.0 11/03/19 00:00 Nasal Cannula 3.0 11/02/19 23:59 79 11/02/19 20:15 84 20 99 Nasal Cannula 4.0 36 11/02/19 20:05 93 Nasal Cannula 4.0 36 11/02/19 20:05 87 20 93 Nasal Cannula 4.0 36 11/02/19 20:00 98.6 80 18 137/72 98 Nasal Cannula 3.0 11/02/19 20:00 Nasal Cannula 3.0 11/02/19 20:00 3.0 11/02/19 19:26 79 11/02/19 16:00 98.3 60 18 137/78 95 Nasal Cannula 3.0 11/02/19 16:00 83 11/02/19 16:00 3.0 11/02/19 16:00 Nasal Cannula 3.0 11/02/19 12:00 3.0 11/02/19 12:00 83 11/02/19 12:00 Nasal Cannula 3.0 11/02/19 11:52 98.9 83 18 130/79 95 Nasal Cannula 3.0 11/02/19 08:00 99.1 86 19 134/81 93 Nasal Cannula 3.0 86 11/02/19 08:00 Nasal Cannula 3.0 2/22/20 08:00 87 11/02/19 08:00 3.0 11/02/19 07:10 95 Nasal Cannula 2.0 28 Intake and Output 11/02/19 11/03/19 19:00 07:00 Intake Total 400 ml 200 ml Balance 400 ml 200 ml Intake Oral 400 ml 200 ml # Voids 2 2 Height (Feet): 5 Height (Inches): 3.00 Weight (Pounds): 324 General Appearance: alert EENT: normal ENT inspection Neck: supple Cardiovascular: normal rate Respiratory/Chest: decreased breath sounds Abdomen: normal bowel sounds, soft Extremities: non-tender Stephen Hermosillo MD Nov 03, 2019 06:54
--- NOTE | 2019-11-03 07:37 | NUR ---
HAND-OFF: Report given to Yvonne MOORE.pt remain stable.
--- NOTE | 2019-11-03 07:40 | NUR ---
NURSE NOTES: Report received from Wojciech Wick RN.Pt awake,alert sitting up on bed eating breakfast noted no resp distress denies any c/o pain or discomfort SR on the monitor,skin warm and dry IV site heplock to RFA intact,with Pure wick,draining yellow urine,SR up x2 HOB elevated,call light within reach at bedside,bed lock in lowest position will continue with plans of care.
[2019-11-03 08:00] VITALS: BP 121/76
[2019-11-03] MEDS ORDERED: DULoxetine 30mg cap ORAL SCH (09:00)
--- NOTE | 2019-11-03 09:07 | Urology Progress Note ---
Assessment/Plan Assessment/Plan: 1. Questionable hydronephrosis. 2. Renal cyst. 3. Renal calcification. 4. Urinary frequency. 5. Possible neurogenic bladder. 6. mild CORINNA, improved. monitor clinically d/w radiologist no obvious hydro noted on CT monitor renal fxn s/p abx f/u on blood cx d/w primary service Subjective Allergies: Coded Allergies: No Known Allergies (Unverified , 10/30/19) Subjective looks comfortable Objective Last 24 Hour Vital Signs Date Time Temp Pulse Resp B/P (MAP) Pulse Ox O2 Delivery O2 Flow Rate FiO2 11/03/19 08:00 96.0 74 19 121/76 95 Nasal Cannula 3.0 11/03/19 07:17 81 20 99 Nasal Cannula 3.0 32 78 20 98 11/03/19 07:17 98 Nasal Cannula 3.0 32 11/03/19 04:00 Nasal Cannula 3.0 11/03/19 04:00 98.4 83 20 137/78 95 Nasal Cannula 3.0 11/03/19 04:00 3.0 11/03/19 03:32 85 11/03/19 02:00 88 20 99 Nasal Cannula 3.0 32 86 20 98 11/03/19 00:00 98.2 80 20 129/67 95 Nasal Cannula 3.0 11/03/19 00:00 Nasal Cannula 3.0 11/02/19 23:59 79 11/02/19 20:15 84 20 99 Nasal Cannula 4.0 36 11/02/19 20:05 93 Nasal Cannula 4.0 36 11/02/19 20:05 87 20 93 Nasal Cannula 4.0 36 11/02/19 20:00 98.6 80 18 137/72 98 Nasal Cannula 3.0 11/02/19 20:00 Nasal Cannula 3.0 11/02/19 20:00 3.0 11/02/19 19:26 79 11/02/19 16:00 98.3 60 18 137/78 95 Nasal Cannula 3.0 11/02/19 16:00 83 11/02/19 16:00 3.0 11/02/19 16:00 Nasal Cannula 3.0 11/02/19 12:00 3.0 11/02/19 12:00 83 11/02/19 12:00 Nasal Cannula 3.0 11/02/19 11:52 98.9 83 18 130/79 95 Nasal Cannula 3.0 Intake and Output 11/02/19 11/03/19 19:00 07:00 Intake Total 400 ml 200 ml Balance 400 ml 200 ml Intake Oral 400 ml 200 ml # Voids 2 2 Microbiology Date/Time Source Procedure Growth Status 10/30/19 23:50 Blood Blood Culture - Preliminary NO GROWTH AFTER 72 HOURS Resulted 10/30/19 15:30 Nasal Nares - Final Complete 10/30/19 15:30 Nasal Nares - Final Complete Current Medications Medications (Trade) Dose Ordered Sig/Cecily Route PRN Reason Start Time Stop Time Status Last Admin Dose Admin Albuterol/ Ipratropium (Albuterol/ Ipratropium) 3 ml Q6H PRN HHN wheezing/SOB 10/30/19 19:45 11/04/19 19:44 Albuterol/ Ipratropium (Albuterol/ Ipratropium) 3 ml Q6HRT HHN 10/31/19 14:00 11/05/19 13:59 11/03/19 02:38 Bisacodyl (Dulcolax) 10 mg HSPRN PRN RECTAL Constipation 10/30/19 18:30 11/29/19 18:29 Dextrose (Dextrose 50%) 25 ml Q30M PRN IV Hypoglycemia 10/30/19 18:30 11/29/19 18:29 Dextrose (Dextrose 50%) 50 ml Q30M PRN IV Hypoglycemia 10/30/19 18:30 11/29/19 18:29 Docusate Sodium (Colace) 100 mg EVERY 12 HOURS ORAL 10/30/19 22:00 11/29/19 21:59 11/02/19 20:33 Duloxetine HCl (Cymbalta) 30 mg DAILY ORAL 11/03/19 09:00 12/03/19 08:59 Ibuprofen (Motrin) 800 mg THREE TIMES A DAY PRN ORAL Mild Pain (Pain Scale 1-3) 11/02/19 09:30 11/04/19 09:29 Insulin Aspart (NovoLOG) BEFORE MEALS AND HS SUBQ 10/30/19 21:00 11/29/19 20:59 10/31/19 20:40 Levothyroxine Sodium (Synthroid) 100 mcg DAILY@0630 ORAL 11/01/19 06:30 12/01/19 06:29 11/03/19 05:51 Magnesium Hydroxide (Mom) 30 ml HSPRN PRN ORAL Constipation 10/30/19 18:30 11/29/19 18:29 Pantoprazole (Protonix) 40 mg DAILY IV 10/30/19 22:00 11/29/19 21:59 11/02/19 09:48 Polyethylene Glycol (Miralax) 17 gm HSPRN PRN ORAL Constipation 10/30/19 18:30 11/29/19 18:29 Prochlorperazine (Compazine) 10 mg Q6H PRN IVP Nausea & Vomiting 10/30/19 18:30 11/29/19 18:29 11/01/19 01:09 Tramadol HCl (Ultram) 50 mg Q6H PRN ORAL Moderate Pain (Pain Scale 4-6) 11/02/19 09:30 11/09/19 09:29 11/02/19 09:56 Height (Feet): 5 Height (Inches): 3.00 Weight (Pounds): 324 Objective exam stable Raymundo Bedolla MD Nov 03, 2019 09:07
[2019-11-03] MEDS: Docusate 100mg cap ORAL SCH ×2 (09:08→20:49)
[2019-11-03] MEDS: Pantoprazole Inj IV SCH (09:08)
--- NOTE | 2019-11-03 10:30 | NUR ---
NURSE NOTES: Max at bedside working with pt,ambulated around the hallway with a walker tolerated well.Pt went to bathroom with a walker assisted by Max
[2019-11-03 11:04] LABS: BASOPHILS % (AUTO) 0.8 % (0.0-2.0); EOSINOPHILS % (AUTO) 4.2 % (0.0-3.0); HEMATOCRIT 43.5 % (37.0-47.0); HEMOGLOBIN 13.7 G/DL (12.0-16.0); LYMPHOCYTES % (AUTO) 8.3 % (20.0-45.0); MEAN CORPUSCULAR VOLUME 95 FL (80-99); MONOCYTES % (AUTO) 4.2 % (1.0-10.0); NEUTROPHILS % (AUTO) 82.6 % (45.0-75.0); PLATELET COUNT 247 K/UL (150-450); RED BLOOD COUNT 4.59 M/UL (4.20-5.40); RED CELL DISTRIBUTION WIDTH 14.4 % (11.6-14.8); WHITE BLOOD COUNT 10.6 K/UL (4.8-10.8)
[2019-11-03 11:14] LABS: ANION GAP 8 mmol/L (5-15); BLOOD UREA NITROGEN 22 mg/dL (7-18); CALCIUM 9.3 MG/DL (8.5-10.1); CARBON DIOXIDE 32 MMOL/L (21-32); CHLORIDE 102 MMOL/L (98-107); CREATININE 1.2 MG/DL (0.55-1.30); POTASSIUM 4.1 MMOL/L (3.5-5.1); SODIUM 142 MMOL/L (136-145)
[2019-11-03 12:00] VITALS: BP 124/69
[2019-11-03] MEDS: traMADol 50mg tab ORAL PRN (12:34)
--- NOTE | 2019-11-03 13:00 | NUR ---
NURSE NOTES: Dr Aguilar at bedside,updated re pt's status,pt stable,transfer orders writen
--- NOTE | 2019-11-03 13:40 | Surgery Progress Note ---
Surgery Progress Note Subjective Symptoms: improved, tolerating diet, passing flatus Objective Last 24 Hour Vital Signs Date Time Temp Pulse Resp B/P (MAP) Pulse Ox O2 Delivery O2 Flow Rate FiO2 11/03/19 12:47 71 20 99 Nasal Cannula 3.0 32 67 20 97 11/03/19 08:00 96.0 74 19 121/76 95 Nasal Cannula 3.0 11/03/19 08:00 Nasal Cannula 3.0 11/03/19 08:00 82 11/03/19 07:17 81 20 99 Nasal Cannula 3.0 32 78 20 98 11/03/19 07:17 98 Nasal Cannula 3.0 32 11/03/19 04:00 Nasal Cannula 3.0 11/03/19 04:00 98.4 83 20 137/78 95 Nasal Cannula 3.0 11/03/19 04:00 3.0 11/03/19 03:32 85 11/03/19 02:00 88 20 99 Nasal Cannula 3.0 32 86 20 98 11/03/19 00:00 98.2 80 20 129/67 95 Nasal Cannula 3.0 11/03/19 00:00 Nasal Cannula 3.0 11/02/19 23:59 79 11/02/19 20:15 84 20 99 Nasal Cannula 4.0 36 11/02/19 20:05 93 Nasal Cannula 4.0 36 11/02/19 20:05 87 20 93 Nasal Cannula 4.0 36 11/02/19 20:00 98.6 80 18 137/72 98 Nasal Cannula 3.0 11/02/19 20:00 Nasal Cannula 3.0 11/02/19 20:00 3.0 11/02/19 19:26 79 11/02/19 16:00 98.3 60 18 137/78 95 Nasal Cannula 3.0 11/02/19 16:00 83 11/02/19 16:00 3.0 11/02/19 16:00 Nasal Cannula 3.0 I&O Intake and Output 11/02/19 11/03/19 19:00 07:00 Intake Total 400 ml 200 ml Balance 400 ml 200 ml Intake Oral 400 ml 200 ml # Voids 2 2 Cardiovascular: RSR Respiratory: clear Abdomen: soft, non-tender, present bowel sounds Extremities: no tenderness, no cyanosis Laboratory Tests Test 11/03/19 10:50 White Blood Count 10.6 K/UL (4.8-10.8) Red Blood Count 4.59 M/UL (4.20-5.40) Hemoglobin 13.7 G/DL (12.0-16.0) Hematocrit 43.5 % (37.0-47.0) Mean Corpuscular Volume 95 FL (80-99) Mean Corpuscular Hemoglobin 29.8 PG (27.0-31.0) Mean Corpuscular Hemoglobin Concent 31.4 G/DL (32.0-36.0) L Red Cell Distribution Width 14.4 % (11.6-14.8) Platelet Count 247 K/UL (150-450) Mean Platelet Volume 9.4 FL (6.5-10.1) Neutrophils (%) (Auto) 82.6 % (45.0-75.0) H Lymphocytes (%) (Auto) 8.3 % (20.0-45.0) L Monocytes (%) (Auto) 4.2 % (1.0-10.0) Eosinophils (%) (Auto) 4.2 % (0.0-3.0) H Basophils (%) (Auto) 0.8 % (0.0-2.0) Sodium Level 142 MMOL/L (136-145) Potassium Level 4.1 MMOL/L (3.5-5.1) Chloride Level 102 MMOL/L (98-107) Carbon Dioxide Level 32 MMOL/L (21-32) Anion Gap 8 mmol/L (5-15) Blood Urea Nitrogen 22 mg/dL (7-18) H Creatinine 1.2 MG/DL (0.55-1.30) Estimat Glomerular Filtration Rate 43.8 mL/min (>60) Glucose Level 158 MG/DL (74-106) H Calcium Level 9.3 MG/DL (8.5-10.1) Plan Problems: (1) Pancreatitis Assessment & Plan: 74-year-old male with pancreatitis potentially believed to be related to biliary source. Biliary imaging reviewed as well as CT and unlikely. Pancreatitis potential related to medications or lipids. No acute surgical intervention indicated recommended. Will follow with recommendations. Thank you for let me participate in patient's care. Trend labs. Okay for diet. Patient currently asymptomatic from pancreatitis and chemical only. labs improving exam benign d/c planning Findings: Gallbladder is distended, without stones, wall thickening, nor pericholecystic fluid. Sonographic Robins's sign is negative. Common bile duct measures 5 mm in diameter. No intrahepatic biliary it . Ductal dilatation. Liver demonstrates diffusely increased echogenicity, consistent with diffuse hepatocellular disease, most likely fatty change. It is somewhat enlarged. Portal vein and hepatic veins are patent. Pancreas is unremarkable. Spleen is unremarkable. Left kidney measures 8.9 cm in length. Right kidney measures 9.9 cm length. Both kidneys demonstrate normal echogenicity. The left kidney is poorly visualized. It demonstrates what appears to be hydronephrosis, but on earlier CT scan is demonstrated to be one or more parapelvic cysts.. Demonstrates an echogenic focus in the left renal sinus which is presumably artifactual as no calculi are demonstrated on earlier CT scan. Abdominal aorta is partially obscured by bowel gas, visualized portions are non-aneurysmal . Impression: Negative for gallstones or dilated bile ducts Enlarged fatty liver Left renal parapelvic cysts Note nonvisualization of portions of the abdominal aorta Findings: Numerous large abdominal and pelvic wall and flank collateral veins are demonstrated. There is marked narrowing of the bilateral external iliac arteries , and absence of the bilateral common iliac arteries. There is an inferior vena cava filter. There is absence of the inferior vena cava immediately below the filter. However, the lumen of the inferior vena cava or the filter is is presumably patent, opacified with contrast. There is mild gaseous distention of the sigmoid colon, without evidence of downstream obstruction. The appendix is not definitely identified, but no findings to suggest acute appendicitis are evident. No evidence of colonic diverticulosis or diverticulitis. No small bowel distention. No free or loculated intraperitoneal gas or fluid is evident. The gallbladder is distended. No gallstones. No biliary ductal dilatation. Liver demonstrates minimal fatty infiltration. No focal liver lesions. No biliary ductal dilatation. Pancreas is unremarkable. The spleen demonstrates a granulomatous calcification in the upper pole. The adrenals are hypertrophied. The right adrenal demonstrates a somewhat ill-defined 2.6 x 1.6 cm mass. The left adrenal demonstrates an ill-defined 1.4 x 1.6 cm mass. No retroperitoneal or mesenteric mass or adenopathy. The right kidney is unremarkable. The left kidney demonstrates a complex parapelvic cyst. The uterus is unremarkable. There is a calcification in the left ovary.. The bones are unremarkable except for a bone island in the right femoral head and considerable degenerative spondylosis changes. The heart is enlarged. The tip of a central venous catheter is seen at the cavoatrial junction. The lung bases demonstrate diffuse groundglass opacity. There are also some atelectatic changes. There are mitral annular calcifications. Impression: No acute abnormality Inferior vena cava filter. 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 Extensive abdominal wall collaterals noted. Mild fatty liver Bilateral adrenal masses, possibly adenomas. Consider adrenal protocol MRI for better characterization Cardiomegaly or graft cardiomegaly Basilar groundglass opacities, may reflect pulmonary edema. There are also basilar pulmonary atelectatic changes Incidental findings as noted, including central venous catheter, right femoral head bone island,, left ovarian calcification, evidence of old granulomatous disease within the spleen (2) Presence of IVC filter Assessment & Plan: Findings: The central venous catheter demonstrated on the earlier imaging studies is demonstrated to be the downstream end of a ventriculoatrial shunt. Shunt reservoir, occipital ankit hole, and intracranial portion are demonstrated on the lateral view. No prevertebral soft tissue swelling. No epiglottic swelling or hypopharyngeal distention. Impression: Previously questioned central venous catheter is demonstrated to actually represent the downstream end of a right-sided ventriculoatrial shunt Олег Webster Nov 03, 2019 13:40
[2019-11-03] MEDS ORDERED: NS 275ml ONE (14:23)
--- NOTE | 2019-11-03 14:55 | General Progress Note ---
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 On admission pt found to have pancreatitis as well as left moderate hydronephrosis of kidney. #Pleuritic chest pain, unclear etiology. Could be referred pain from pancreas or gallbladder - Resolved #Pancreatitis, unclear etiology. Denies history of alcohol use and abdominal ultrasound negative for gallstones or cholecystitis.Per family/PCP pt was taking supplements for weight loss, possible etiology #Family history of pancreatic cancer #Acute hypoxic respiratory failure (Tachypnea) secondary to pulmonary edema- resolving #Sirs (WBC, tachypnea), no source at this time. Could be 2/2 pancreatitis - resolved -transfer from SDU to med surg -Troponins negative x 3, 2D echocardiogram: Poor study. Grossly normal EF and no wall motion abnormalities. IVC normal size. -CT pulmonary angiogram negative for PE -Blood cultures x2 NGTD -GI consult for pancreatitis: Dr. Hermosillo: No interventions at this time. Amylase and lipase downtrending, pancreatits resolved -Surgery consult for abdominal pain/referred chest pain and cholecystitis: Dr. Webster - No surgical interventions at this time - CXR with persistent pulmonary edema- > s/p Lasix 20mg IV x 1, appears euvolemic on exam -Zosyn (10/30 -11/01)- Discontinued as no source of infection - pain control -PT #4 mm right subdural hematoma, mostly subacute/old but with a focal small acute component, as described. Mild local mass effect. There is a more questionable focus of acute subdural hematoma along the lateral aspect of the tentorium on the left. #acute metabolic encephalopathy. 2/2 above - Transfer to [facility] for urgent Neurosurgical evaluation. Accepting neurosurgeon is Dr. Herbert Castillo - Extensive discussion with PCP Dr. Peters, patient, and family. All questions answered. - D/W Dr. Castillo, will cont. transfer, Transfer pending - CT head as above - cont. to trend labs - off Abx - Continue to monitor - pt clinically improving - d/w pt/family and pt's PCP, if pt continues to clinically improve may f/u w/ Neurosx as o/p - Neurology Dr. Berrios consulted - Repeat CT head today #Moderate hydronephrosis of left kidney of uncertain etiology #0.4 cm nonobstructing lower pole left kidney stone -urology consult: Dr. Bedolla- Suspect more of a renal cyst then hydronephrosis. no intervention for now -Trend creatinine -IV fluids as above #Elevated Cr. Unknown baseline - resolved -Continue to monitor -avoid nephrotoxins #Left lower extremity DVT > S/p IVC filter, pt is not OAC candidate - SCDs on right leg #Hypothyroidism -Continue home Synthroid #History of ICH secondary to AVM #History of AVM of brain #History of DVT status post IVC filter due to contraindication for anticoagulation #Absolute contraindication to any further anticoagulation. Discussed with patient. -Venous duplex ultrasound bilateral to confirm if any new DVTs- left lower extremity DVT #Bilateral adrenal adenomas -Will eventually need Endocrinology consult #Morbid obesity -Patient counseled patient on weight loss DVT prophylaxis: HSQ Code status: Full but no prolonged intubation I spent an additional 75 minutes of further face to face time w/Pt and PCP Dr. Beckie Peters, >50% time spent on counseling and care coordination in addition to usual care as detailed above. Time of note may not reflect time patient was seen. Subjective Constitutional: Reports: weakness - generalized; Denies: no symptoms, chills, diaphoresis, fever, malaise, other HEENT: Denies: no symptoms, eye pain, blurred vision, tearing, double vision, ear pain, ear discharge, nose pain, nose congestion, throat pain, throat swelling, mouth pain, mouth swelling, other Cardiovascular: Denies: no symptoms, chest pain, edema, irregular heart rate, lightheadedness, palpitations, syncope, other Respiratory: Denies: no symptoms, cough, orthopnea, shortness of breath, SOB with excertion, SOB at rest, sputum, stridor, wheezing, other Gastrointestinal/Abdominal: Denies: no symptoms, abdomen distended, abdominal pain, black stools, tarry stools, blood in stool, constipated, diarrhea, difficulty swallowing, nausea, poor appetite, poor fluid intake, rectal bleeding , vomiting, other Genitourinary: Denies: no symptoms, burning, discharge, frequency, flank pain, hematuria, incontinence, pain, urgency, other Endocrine: Denies: no symptoms, excessive sweating, flushing, intolerance to cold, intolerance to heat, increased hunger, increased thirst, increased urine, unexplained weight gain, unexplained weight loss, other Hematologic/Lymphatic: Denies: no symptoms, anemia, easy bleeding, easy bruising, other Allergies: Coded Allergies: No Known Allergies (Unverified , 10/30/19) Subjective Pt states she is feeling well, no further episodes of pain. No SOB, CP, abdominal pain. Notes she has not had BM. Objective Last 24 Hour Vital Signs Date Time Temp Pulse Resp B/P (MAP) Pulse Ox O2 Delivery O2 Flow Rate FiO2 11/03/19 12:47 71 20 99 Nasal Cannula 3.0 32 67 20 97 11/03/19 12:00 97.9 70 20 124/69 96 Nasal Cannula 3.0 11/03/19 12:00 65 11/03/19 08:00 96.0 74 19 121/76 95 Nasal Cannula 3.0 11/03/19 08:00 Nasal Cannula 3.0 11/03/19 08:00 82 11/03/19 07:17 81 20 99 Nasal Cannula 3.0 32 78 20 98 11/03/19 07:17 98 Nasal Cannula 3.0 32 11/03/19 04:00 Nasal Cannula 3.0 11/03/19 04:00 98.4 83 20 137/78 95 Nasal Cannula 3.0 11/03/19 04:00 3.0 11/03/19 03:32 85 11/03/19 02:00 88 20 99 Nasal Cannula 3.0 32 86 20 98 11/03/19 00:00 98.2 80 20 129/67 95 Nasal Cannula 3.0 11/03/19 00:00 Nasal Cannula 3.0 11/02/19 23:59 79 11/02/19 20:15 84 20 99 Nasal Cannula 4.0 36 11/02/19 20:05 93 Nasal Cannula 4.0 36 11/02/19 20:05 87 20 93 Nasal Cannula 4.0 36 11/02/19 20:00 98.6 80 18 137/72 98 Nasal Cannula 3.0 11/02/19 20:00 Nasal Cannula 3.0 11/02/19 20:00 3.0 11/02/19 19:26 79 11/02/19 16:00 98.3 60 18 137/78 95 Nasal Cannula 3.0 11/02/19 16:00 83 11/02/19 16:00 3.0 11/02/19 16:00 Nasal Cannula 3.0 Intake and Output 11/02/19 11/03/19 19:00 07:00 Intake Total 400 ml 200 ml Balance 400 ml 200 ml Intake Oral 400 ml 200 ml # Voids 2 2 Laboratory Tests 11/03/19 10:50: White Blood Count 10.6, Red Blood Count 4.59, Hemoglobin 13.7, Hematocrit 43.5, Mean Corpuscular Volume 95, Mean Corpuscular Hemoglobin 29.8, Mean Corpuscular Hemoglobin Concent 31.4L, Red Cell Distribution Width 14.4, Platelet Count 247, Mean Platelet Volume 9.4, Neutrophils (%) (Auto) 82.6H, Lymphocytes (%) (Auto) 8.3L, Monocytes (%) (Auto) 4.2, Eosinophils (%) (Auto) 4.2H, Basophils (%) (Auto ) 0.8, Sodium Level 142, Potassium Level 4.1, Chloride Level 102, Carbon Dioxide Level 32, Anion Gap 8, Blood Urea Nitrogen 22H, Creatinine 1.2, Estimat Glomerular Filtration Rate 43.8, Glucose Level 158H, Calcium Level 9.3 Height (Feet): 5 Height (Inches): 3.00 Weight (Pounds): 324 Objective General: WDWN female in NAD, A&O x 4 HEENT: NCAT, EOMi, nares patent and no symmetrical, no tonsillar exudates, mucous membranes moist CV: Regular rate regular rhythm, no murmurs, rubs, or gallops Pulm: CTAB, No wheezes, rhonchi, or rales, on NC 3L GI: Soft, nontender, nondistended, bowel sounds present Neuro: CN 2-12 intact bilaterally, no focal signs. Ext: No lower extremity edema bilaterally Skin: no rashes lesions or ulcers Msk: Joints symmetrical in upper extremity and lower extremity bilaterally, no joint swelling. Lymph: No lymphadenopathy in upper extremity and lower extremity Luke Aguialr M.D. Nov 03, 2019 14:55
[2019-11-03 16:00] VITALS: BP 123/59
--- NOTE | 2019-11-03 16:00 | NUR ---
NURSE NOTES: Yvonne RN brought patient by bed in stable condition. Alert and oriented x4. No complain of pain or distress at this time. On O2 @ 2L via NC. IV dressing intact and dry. Belonging checked. Bed lowest position. Call light within reach. Will continue to monitor.
--- NOTE | 2019-11-03 16:00 | NUR ---
TRANSFER TO FLOOR: Patient transferred to 3E room 310-2, per bed awake alert oriented in no resp distress. Report given to RN Audra Pimentel. Belongings given to receiving RN . Family and or S/O informed of transfer.
--- NOTE | 2019-11-03 16:09 | NUR ---
PT Note PT courtney completed, treatment initiated. Patient has muscle weakness and decreased standing balance with SOB on exertion. Patient needs physical therapy to increase her muscle strength, balance and instruct on energy conservation techniques to improve her safety in mobility and gait. Addendum: 11/03/19 at 1609 by AARON DE LA GARZA PT Amended: Links added.
--- NOTE | 2019-11-03 16:15 | NUR ---
NURSE NOTES: Patient is in bed awake and able to verbalize needs. Stable. Denies pain or SOB. Patient instructed to use call light for assistance, verbalized understanding. Plan of care discussed with patient. Assessment done. Skin is c/d/i. IV is patent. Patient is in bed in locked and lowest position with call light within reach. All needs met at this time. Will continue to monitor.
[2019-11-03] MEDS ORDERED: Milk of Magnesia 30ml Ud ORAL PRN (16:49)
[2019-11-03] MEDS ORDERED: Albuterol/Ipratropium 3ml neb HHN PRN (16:49)
[2019-11-03] MEDS ORDERED: traMADol 50mg tab ORAL PRN (16:49)
[2019-11-03] MEDS ORDERED: Miralax 17gm pkt ORAL PRN (16:49)
--- NOTE | 2019-11-03 19:30 | NUR ---
HAND-OFF: Report given to Nikolay MOORE. Patient is stable.
[2019-11-03 20:00] VITALS: BP 113/58
--- NOTE | 2019-11-03 20:00 | NUR ---
NURSE NOTES: Patient is in bed awake and able to verbalize needs, c/o chronic back pain 12/19. Stable. Assisted to bathroom with 3 RN assist and front wheel walker. Patient had a bowel movement. Patient instructed to use call light for assistance, verbalized understanding. Plan of care discussed with patient. Assessment done. Patient assisted back to bed, is locked and lowest position with call light within reach. All needs met at this time.
[2019-11-04] VITALS: BP 108/66
[2019-11-04] MEDS: Albuterol/Ipratropium 3ml neb HHN SCH ×4 (00:37→19:24)
[2019-11-04 04:00] VITALS: BP 127/67
[2019-11-04 07:12] LABS: BASOPHILS % (AUTO) 0.9 % (0.0-2.0); EOSINOPHILS % (AUTO) 5.5 % (0.0-3.0); HEMOGLOBIN 13.1 G/DL (12.0-16.0); LYMPHOCYTES % (AUTO) 9.7 % (20.0-45.0); MEAN CORPUSCULAR VOLUME 90 FL (80-99); MONOCYTES % (AUTO) 4.7 % (1.0-10.0); NEUTROPHILS % (AUTO) 79.2 % (45.0-75.0); PLATELET COUNT 212 K/UL (150-450); RED BLOOD COUNT 4.22 M/UL (4.20-5.40); RED CELL DISTRIBUTION WIDTH 12.8 % (11.6-14.8)
[2019-11-04 07:17] LABS: ANION GAP 4 mmol/L (5-15); BLOOD UREA NITROGEN 16 mg/dL (7-18); CALCIUM 9.4 MG/DL (8.5-10.1); CARBON DIOXIDE 37 MMOL/L (21-32); CHLORIDE 102 MMOL/L (98-107); POTASSIUM 4.2 MMOL/L (3.5-5.1); SODIUM 142 MMOL/L (136-145)
--- NOTE | 2019-11-04 07:30 | NUR ---
NURSE NOTES: Patient is in bed awake and able to verbalize needs. Stable. Denies pain or SOB. 2L oxygen administered via NC. Plan of care discussed with patient. Patient will be transferred as ordered. Patient is in bed in locked and lowest position with call light within reach. All needs met at this time. Will continue to monitor.
--- NOTE | 2019-11-04 07:33 | Urology Progress Note ---
Assessment/Plan Assessment/Plan: 1. Questionable hydronephrosis. 2. Renal cyst. 3. Renal calcification. 4. Urinary frequency. 5. Possible neurogenic bladder. 6. mild CORINAN, improved. monitor clinically d/w radiologist no obvious hydro noted on CT monitor renal fxn, improved s/p abx f/u on blood cx transferring to [facility] d/w primary service Subjective Allergies: Coded Allergies: No Known Allergies (Unverified , 10/30/19) Subjective looks comfortable Objective Last 24 Hour Vital Signs Date Time Temp Pulse Resp B/P (MAP) Pulse Ox O2 Delivery O2 Flow Rate FiO2 11/04/19 04:02 98.7 11/04/19 04:00 97.9 76 19 127/67 93 11/04/19 00:00 98.7 81 18 108/66 92 11/03/19 22:25 Nasal Cannula 3.0 11/03/19 20:00 98.3 77 19 113/58 92 11/03/19 20:00 76 20 96 Nasal Cannula 3.0 32 74 20 93 11/03/19 20:00 94 Nasal Cannula 3.0 32 11/03/19 16:00 98.6 73 20 123/59 96 Nasal Cannula 3.0 11/03/19 12:47 71 20 99 Nasal Cannula 3.0 32 67 20 97 11/03/19 12:00 97.9 70 20 124/69 96 Nasal Cannula 3.0 11/03/19 12:00 65 11/03/19 08:00 96.0 74 19 121/76 95 Nasal Cannula 3.0 11/03/19 08:00 Nasal Cannula 3.0 11/03/19 08:00 82 Intake and Output 11/03/19 11/04/19 19:00 07:00 Intake Total 240 ml 250 ml Balance 240 ml 250 ml Intake Oral 240 ml 250 ml # Voids 2 3 # Bowel Movements 3 Microbiology Date/Time Source Procedure Growth Status 10/30/19 23:50 Blood Blood Culture - Preliminary NO GROWTH AFTER 72 HOURS Resulted 10/30/19 15:30 Nasal Nares - Final Complete 10/30/19 15:30 Nasal Nares - Final Complete Current Medications Medications (Trade) Dose Ordered Sig/Cecily Route PRN Reason Start Time Stop Time Status Last Admin Dose Admin Albuterol/ Ipratropium (Albuterol/ Ipratropium) 3 ml Q6H PRN HHN wheezing/SOB 11/03/19 16:49 11/08/19 16:48 Albuterol/ Ipratropium (Albuterol/ Ipratropium) 3 ml Q6HRT HHN 11/03/19 19:00 11/05/19 13:59 11/03/19 21:43 Bisacodyl (Dulcolax) 10 mg HSPRN PRN RECTAL Constipation 11/03/19 16:48 12/03/19 16:47 Dextrose (Dextrose 50%) 25 ml Q30M PRN IV Hypoglycemia 11/03/19 17:00 11/29/19 18:29 Dextrose (Dextrose 50%) 50 ml Q30M PRN IV Hypoglycemia 11/03/19 17:00 11/29/19 18:29 Docusate Sodium (Colace) 100 mg EVERY 12 HOURS ORAL 11/03/19 21:00 11/29/19 21:59 Duloxetine HCl (Cymbalta) 30 mg DAILY ORAL 11/04/19 09:00 12/03/19 08:59 Ibuprofen (Motrin) 800 mg TIDPRN PRN ORAL Mild Pain (Pain Scale 1-3) 11/03/19 16:49 12/03/19 16:48 Levothyroxine Sodium (Synthroid) 100 mcg DAILY@0630 ORAL 11/04/19 06:30 12/01/19 06:29 11/04/19 05:40 Magnesium Hydroxide (Mom) 30 ml HSPRN PRN ORAL Constipation 11/03/19 16:49 12/03/19 16:48 11/03/19 17:05 Polyethylene Glycol (Miralax) 17 gm HSPRN PRN ORAL Constipation 11/03/19 16:49 12/03/19 16:48 Prochlorperazine (Compazine) 10 mg Q6H PRN IVP Nausea & Vomiting 11/03/19 16:49 12/03/19 16:48 Tramadol HCl (Ultram) 50 mg Q6H PRN ORAL Moderate Pain (Pain Scale 4-6) 11/03/19 16:49 11/10/19 16:48 11/04/19 03:32 Laboratory Tests 11/03/19 10:50: White Blood Count 10.6, Red Blood Count 4.59, Hemoglobin 13.7, Hematocrit 43.5, Mean Corpuscular Volume 95, Mean Corpuscular Hemoglobin 29.8, Mean Corpuscular Hemoglobin Concent 31.4L, Red Cell Distribution Width 14.4, Platelet Count 247, Mean Platelet Volume 9.4, Neutrophils (%) (Auto) 82.6H, Lymphocytes (%) (Auto) 8.3L, Monocytes (%) (Auto) 4.2, Eosinophils (%) (Auto) 4.2H, Basophils (%) (Auto ) 0.8, Sodium Level 142, Potassium Level 4.1, Chloride Level 102, Carbon Dioxide Level 32, Anion Gap 8, Blood Urea Nitrogen 22H, Creatinine 1.2, Estimat Glomerular Filtration Rate 43.8, Glucose Level 158H, Calcium Level 9.3 11/04/19 05:10: White Blood Count 10.0, Red Blood Count 4.22, Hemoglobin 13.1, Hematocrit 38.0, Mean Corpuscular Volume 90, Mean Corpuscular Hemoglobin 30.9, Mean Corpuscular Hemoglobin Concent 34.3, Red Cell Distribution Width 12.8, Platelet Count 212, Mean Platelet Volume 7.5, Neutrophils (%) (Auto) 79.2H, Lymphocytes (%) (Auto) 9.7L, Monocytes (%) (Auto) 4.7, Eosinophils (%) (Auto) 5.5H, Basophils (%) (Auto ) 0.9, Sodium Level 142, Potassium Level 4.2, Chloride Level 102, Carbon Dioxide Level 37H, Anion Gap 4L, Blood Urea Nitrogen 16, Creatinine 1.0, Estimat Glomerular Filtration Rate 54.0, Glucose Level 97, Calcium Level 9.4 Height (Feet): 5 Height (Inches): 3.00 Weight (Pounds): 324 Objective exam stable Raymundo Bedolla MD Nov 04, 2019 07:33
[2019-11-04 08:00] VITALS: BP 130/73
--- NOTE | 2019-11-04 09:30 | NUR ---
NURSE NOTES: Discussed transfer with CM. Awaiting bed availability per CM.
[2019-11-04] MEDS: Docusate 100mg cap ORAL SCH ×2 (09:44→21:01)
[2019-11-04] MEDS: DULoxetine 30mg cap ORAL SCH (09:44)
--- NOTE | 2019-11-04 09:57 | NUR ---
*-* DISCHARGE PLANNING *-* PATIENT HAS BEEN REFERRED TO: [facility] ATTN: KAIDEN P: [phone] F: [phone]
--- NOTE | 2019-11-04 10:25 | Diagnostic Imaging Report ---
Indications: Head pain, evidence of subdural hematoma on prior CT scan Technique: Spiral acquisitions obtained through the brain. Angled axial and coronal 5 x 5 mm slices were reconstructed. Total dose length product 1095 mGycm. CTDI vol(s) 53 mGy. Dose reduction achieved using automated exposure control Comparison: 10/31/2019 Findings: Again demonstrated is a small left anterior convexity extra-axial collection measuring up to 4 mm in thickness. This appears slightly lower in attenuation than previously. The previously demonstrated very focal high attenuation component adjacent to the anterior sylvian fissure has decreased in attenuation, and is now isoattenuating to dao matter. This results in attenuation of the ipsilateral lateral ventricle and ipsilateral sulci, but no midline shift. Again demonstrated is encephalomalacia involving the inferior anterior right frontal lobe and to a slight extent the adjacent left frontal lobe. Again demonstrated is ventriculoperitoneal shunt tubing via a right parietal approach No new bleed demonstrated. Dao-white differentiation is normal elsewhere. Again demonstrated are bilateral frontal ankit holes and a right frontal craniotomy flap. The mastoids are clear. There is evidence of prior bilateral cataract surgery. The sinuses are clear. Impression: Small left anterior convexity mostly low-attenuation subdural hematoma. This appears lower in attenuation than previously, consistent with evolution to chronicity. Previously demonstrated focal acute component has also decreased in attenuation, consistent with expected evolution. Unchanged postsurgical changes, as described. Unchanged right inferior frontal and left anterior frontal encephalomalacia, likely related to such No new/acute abnormality The CT scanner at [facility] is accredited by the [employer] and the scans are performed using protocols designed to limit radiation exposure to as low as reasonably achievable to attain images of sufficient resolution adequate for diagnostic evaluation.
--- NOTE | 2019-11-04 11:06 | GI Progress Note ---
Assessment/Plan Problems: (1) Pancreatitis ICD Codes: K85.90 - Acute pancreatitis without necrosis or infection, unspecified SNOMED: 68108014 (2) Acute respiratory failure ICD Codes: J96.00 - Acute respiratory failure, unspecified whether with hypoxia or hypercapnia SNOMED: 70834486 (3) Acute encephalopathy ICD Codes: G93.40 - Encephalopathy, unspecified SNOMED: 40356826, 638302104 Status: stable Status Narrative Discussed with Dr. Hermosillo. Assessment/Plan 1. Hypothyroidism. 2. 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 3. Morbid obesity. 4. History of DVT requiring IVC filter placement. 5. History of cataract requiring surgery. plan for transfer to [facility] today no evidence of pancreatitis improved amylase and lipase on diet The patient was seen and examined at bedside and all new and available data was reviewed in the patients chart. I agree with the above findings, impression and plan. (Patient seen earlier today. Signature stamp does not reflect patient encounter time.). - Stephen Hermosillo MD Subjective Gastrointestinal/Abdominal: Reports: no symptoms Objective Last 24 Hour Vital Signs Date Time Temp Pulse Resp B/P (MAP) Pulse Ox O2 Delivery O2 Flow Rate FiO2 11/04/19 09:00 Nasal Cannula 3.0 11/04/19 08:51 88 18 94 Nasal Cannula 3.0 32 90 16 92 11/04/19 08:51 94 Nasal Cannula 3.0 32 11/04/19 08:00 97.7 85 22 130/73 94 11/04/19 04:02 98.7 11/04/19 04:00 97.9 76 19 127/67 93 11/04/19 00:00 98.7 81 18 108/66 92 11/03/19 22:25 Nasal Cannula 3.0 11/03/19 20:00 98.3 77 19 113/58 92 11/03/19 20:00 76 20 96 Nasal Cannula 3.0 32 74 20 93 11/03/19 20:00 94 Nasal Cannula 3.0 32 11/03/19 16:00 98.6 73 20 123/59 96 Nasal Cannula 3.0 11/03/19 12:47 71 20 99 Nasal Cannula 3.0 32 67 20 97 11/03/19 12:00 97.9 70 20 124/69 96 Nasal Cannula 3.0 11/03/19 12:00 65 Intake and Output 11/03/19 11/04/19 19:00 07:00 Intake Total 240 ml 250 ml Balance 240 ml 250 ml Intake Oral 240 ml 250 ml # Voids 2 3 # Bowel Movements 3 Laboratory Tests Test 11/04/19 05:10 White Blood Count 10.0 K/UL (4.8-10.8) Red Blood Count 4.22 M/UL (4.20-5.40) Hemoglobin 13.1 G/DL (12.0-16.0) Hematocrit 38.0 % (37.0-47.0) Mean Corpuscular Volume 90 FL (80-99) Mean Corpuscular Hemoglobin 30.9 PG (27.0-31.0) Mean Corpuscular Hemoglobin Concent 34.3 G/DL (32.0-36.0) Red Cell Distribution Width 12.8 % (11.6-14.8) Platelet Count 212 K/UL (150-450) Mean Platelet Volume 7.5 FL (6.5-10.1) Neutrophils (%) (Auto) 79.2 % (45.0-75.0) H Lymphocytes (%) (Auto) 9.7 % (20.0-45.0) L Monocytes (%) (Auto) 4.7 % (1.0-10.0) Eosinophils (%) (Auto) 5.5 % (0.0-3.0) H Basophils (%) (Auto) 0.9 % (0.0-2.0) Sodium Level 142 MMOL/L (136-145) Potassium Level 4.2 MMOL/L (3.5-5.1) Chloride Level 102 MMOL/L (98-107) Carbon Dioxide Level 37 MMOL/L (21-32) H Anion Gap 4 mmol/L (5-15) L Blood Urea Nitrogen 16 mg/dL (7-18) Creatinine 1.0 MG/DL (0.55-1.30) Estimat Glomerular Filtration Rate 54.0 mL/min (>60) Glucose Level 97 MG/DL (74-106) Calcium Level 9.4 MG/DL (8.5-10.1) Height (Feet): 5 Height (Inches): 3.00 Weight (Pounds): 324 Lula Torres NON DESTRUCTIVE TESTER Nov 04, 2019 11:06
--- NOTE | 2019-11-04 11:52 | NUR ---
TRANSFER PENDING: SPOKE TO [facility] FROM [facility] AT THIS TIME NO BED ARE AVAILABLE
[2019-11-04 11:59] VITALS: BP 122/63
--- NOTE | 2019-11-04 13:29 | Surgery Progress Note ---
Surgery Progress Note Subjective Additional Comments no acute evnts comfortable stable Objective Last 24 Hour Vital Signs Date Time Temp Pulse Resp B/P (MAP) Pulse Ox O2 Delivery O2 Flow Rate FiO2 11/04/19 11:59 98.2 79 18 122/63 94 Nasal Cannula 2.0 11/04/19 09:00 Nasal Cannula 3.0 11/04/19 08:51 88 18 94 Nasal Cannula 3.0 32 90 16 92 11/04/19 08:51 94 Nasal Cannula 3.0 32 11/04/19 08:00 97.7 85 22 130/73 94 11/04/19 04:02 98.7 11/04/19 04:00 97.9 76 19 127/67 93 11/04/19 00:00 98.7 81 18 108/66 92 11/03/19 22:25 Nasal Cannula 3.0 11/03/19 20:00 98.3 77 19 113/58 92 11/03/19 20:00 76 20 96 Nasal Cannula 3.0 32 74 20 93 11/03/19 20:00 94 Nasal Cannula 3.0 32 11/03/19 16:00 98.6 73 20 123/59 96 Nasal Cannula 3.0 I&O Intake and Output 11/03/19 11/04/19 19:00 07:00 Intake Total 240 ml 250 ml Balance 240 ml 250 ml Intake Oral 240 ml 250 ml # Voids 2 3 # Bowel Movements 3 Dressing: other Wound: other Drains: other Cardiovascular: RSR Respiratory: decreased breath sounds Abdomen: soft, present bowel sounds, non-distended Extremities: no tenderness, no cyanosis Laboratory Tests Test 11/04/19 05:10 White Blood Count 10.0 K/UL (4.8-10.8) Red Blood Count 4.22 M/UL (4.20-5.40) Hemoglobin 13.1 G/DL (12.0-16.0) Hematocrit 38.0 % (37.0-47.0) Mean Corpuscular Volume 90 FL (80-99) Mean Corpuscular Hemoglobin 30.9 PG (27.0-31.0) Mean Corpuscular Hemoglobin Concent 34.3 G/DL (32.0-36.0) Red Cell Distribution Width 12.8 % (11.6-14.8) Platelet Count 212 K/UL (150-450) Mean Platelet Volume 7.5 FL (6.5-10.1) Neutrophils (%) (Auto) 79.2 % (45.0-75.0) H Lymphocytes (%) (Auto) 9.7 % (20.0-45.0) L Monocytes (%) (Auto) 4.7 % (1.0-10.0) Eosinophils (%) (Auto) 5.5 % (0.0-3.0) H Basophils (%) (Auto) 0.9 % (0.0-2.0) Sodium Level 142 MMOL/L (136-145) Potassium Level 4.2 MMOL/L (3.5-5.1) Chloride Level 102 MMOL/L (98-107) Carbon Dioxide Level 37 MMOL/L (21-32) H Anion Gap 4 mmol/L (5-15) L Blood Urea Nitrogen 16 mg/dL (7-18) Creatinine 1.0 MG/DL (0.55-1.30) Estimat Glomerular Filtration Rate 54.0 mL/min (>60) Glucose Level 97 MG/DL (74-106) Calcium Level 9.4 MG/DL (8.5-10.1) Plan Problems: (1) Pancreatitis Assessment & Plan: 74-year-old male with pancreatitis potentially believed to be related to biliary source. Biliary imaging reviewed as well as CT and unlikely. Pancreatitis potential related to medications or lipids. No acute surgical intervention indicated recommended. Will follow with recommendations. Thank you for let me participate in patient's care. Trend labs. Okay for diet. Patient currently asymptomatic from pancreatitis and chemical only. labs improving exam benign d/c planning Findings: Gallbladder is distended, without stones, wall thickening, nor pericholecystic fluid. Sonographic Robins's sign is negative. Common bile duct measures 5 mm in diameter. No intrahepatic biliary it . Ductal dilatation. Liver demonstrates diffusely increased echogenicity, consistent with diffuse hepatocellular disease, most likely fatty change. It is somewhat enlarged. Portal vein and hepatic veins are patent. Pancreas is unremarkable. Spleen is unremarkable. Left kidney measures 8.9 cm in length. Right kidney measures 9.9 cm length. Both kidneys demonstrate normal echogenicity. The left kidney is poorly visualized. It demonstrates what appears to be hydronephrosis, but on earlier CT scan is demonstrated to be one or more parapelvic cysts.. Demonstrates an echogenic focus in the left renal sinus which is presumably artifactual as no calculi are demonstrated on earlier CT scan. Abdominal aorta is partially obscured by bowel gas, visualized portions are non-aneurysmal . Impression: Negative for gallstones or dilated bile ducts Enlarged fatty liver Left renal parapelvic cysts Note nonvisualization of portions of the abdominal aorta Findings: Numerous large abdominal and pelvic wall and flank collateral veins are demonstrated. There is marked narrowing of the bilateral external iliac arteries , and absence of the bilateral common iliac arteries. There is an inferior vena cava filter. There is absence of the inferior vena cava immediately below the filter. However, the lumen of the inferior vena cava or the filter is is presumably patent, opacified with contrast. There is mild gaseous distention of the sigmoid colon, without evidence of downstream obstruction. The appendix is not definitely identified, but no findings to suggest acute appendicitis are evident. No evidence of colonic diverticulosis or diverticulitis. No small bowel distention. No free or loculated intraperitoneal gas or fluid is evident. The gallbladder is distended. No gallstones. No biliary ductal dilatation. Liver demonstrates minimal fatty infiltration. No focal liver lesions. No biliary ductal dilatation. Pancreas is unremarkable. The spleen demonstrates a granulomatous calcification in the upper pole. The adrenals are hypertrophied. The right adrenal demonstrates a somewhat ill-defined 2.6 x 1.6 cm mass. The left adrenal demonstrates an ill-defined 1.4 x 1.6 cm mass. No retroperitoneal or mesenteric mass or adenopathy. The right kidney is unremarkable. The left kidney demonstrates a complex parapelvic cyst. The uterus is unremarkable. There is a calcification in the left ovary.. The bones are unremarkable except for a bone island in the right femoral head and considerable degenerative spondylosis changes. The heart is enlarged. The tip of a central venous catheter is seen at the cavoatrial junction. The lung bases demonstrate diffuse groundglass opacity. There are also some atelectatic changes. There are mitral annular calcifications. Impression: No acute abnormality Inferior vena cava filter. 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 Extensive abdominal wall collaterals noted. Mild fatty liver Bilateral adrenal masses, possibly adenomas. Consider adrenal protocol MRI for better characterization Cardiomegaly or graft cardiomegaly Basilar groundglass opacities, may reflect pulmonary edema. There are also basilar pulmonary atelectatic changes Incidental findings as noted, including central venous catheter, right femoral head bone island,, left ovarian calcification, evidence of old granulomatous disease within the spleen (2) Presence of IVC filter Assessment & Plan: Findings: The central venous catheter demonstrated on the earlier imaging studies is demonstrated to be the downstream end of a ventriculoatrial shunt. Shunt reservoir, occipital ankit hole, and intracranial portion are demonstrated on the lateral view. No prevertebral soft tissue swelling. No epiglottic swelling or hypopharyngeal distention. Impression: Previously questioned central venous catheter is demonstrated to actually represent the downstream end of a right-sided ventriculoatrial shunt Олег Webster Nov 04, 2019 13:29
--- NOTE | 2019-11-04 13:39 | NUR ---
CHARGE NURSE NOTES: Per MARGY Rangel, there's still no no bed assignment as of now but they will accept the pt.
[2019-11-04 15:57] VITALS: BP 133/56
--- NOTE | 2019-11-04 19:34 | NUR ---
HAND-OFF: Report given to Anila MOORE. Patient is stable.
--- NOTE | 2019-11-04 19:59 | General Progress Note ---
Assessment/Plan Status: stable Assessment/Plan: 74-year-old female PMH of hypothyroidism, AVM of brain, ICH secondary to AVM s/ p [employer] shunt, chronic RLE DVT >10 years ago, gallstones who presents with pleuritic chest pain radiating to her back for 1 day. On admission pt found to have pancreatitis as well as left moderate hydronephrosis of kidney. #Pleuritic chest pain, unclear etiology. Could be referred pain from pancreas or gallbladder - Resolved #Pancreatitis, unclear etiology. Denies history of alcohol use and abdominal ultrasound negative for gallstones or cholecystitis.Per family/PCP pt was taking supplements for weight loss, possible etiology #Family history of pancreatic cancer #Acute hypoxic respiratory failure (Tachypnea) secondary to pulmonary edema- resolving #Sirs (WBC, tachypnea), no source at this time. Could be 2/2 pancreatitis - resolved -transfer from SDU to med surg -Troponins negative x 3, 2D echocardiogram: Poor study. Grossly normal EF and no wall motion abnormalities. IVC normal size. -CT pulmonary angiogram negative for PE -Blood cultures x2 NGTD -GI following -Surgery consult for abdominal pain/referred chest pain and cholecystitis: Dr. Webster - No surgical interventions at this time - CXR with persistent pulmonary edema- > s/p Lasix 20mg IV x 1, appears euvolemic on exam -Zosyn (10/30 -11/01)- Discontinued as no source of infection - pain control -PT #4 mm right subdural hematoma, mostly subacute/old but with a focal small acute component, as described. Mild local mass effect. There is a more questionable focus of acute subdural hematoma along the lateral aspect of the tentorium on the left. #acute metabolic encephalopathy. 2/2 above - Pending bed availability at [facility] for transfer to [facility] - Repeat CT head shows progression in chronicity of SDH - cont. to trend labs - off Abx - Continue to monitor - pt clinically improving - If bed not available at [facility] may need outpatient neurosurg eval - Neurology Dr. Berrios pending - Repeat CT head today #Moderate hydronephrosis of left kidney of uncertain etiology #0.4 cm nonobstructing lower pole left kidney stone -seen by Dr. Bedolla -urology consult: Dr. Bedlola- Suspect more of a renal cyst then hydronephrosis. no intervention for now -Trend creatinine -IV fluids as above #Elevated Cr. Unknown baseline - resolved -Continue to monitor -avoid nephrotoxins #Left lower extremity DVT > S/p IVC filter, pt is not OAC candidate - SCDs on right leg #Hypothyroidism -Continue home Synthroid #History of ICH secondary to AVM #History of AVM of brain #History of DVT status post IVC filter due to contraindication for anticoagulation #Absolute contraindication to any further anticoagulation. Discussed with patient. -Venous duplex ultrasound bilateral to confirm if any new DVTs- left lower extremity DVT #Bilateral adrenal adenomas -Will eventually need Endocrinology consult #Morbid obesity -Patient counseled patient on weight loss DVT prophylaxis: HSQ Code status: Full but no prolonged intubation I spent an additional 35 minutes of further face to face time w/Pt and PCP Dr. Beckie Peters, >50% time spent on counseling and care coordination in addition to usual care as detailed above. Time of note may not reflect time patient was seen. Subjective Date patient seen: Nov 04, 2019 Time patient seen: 08:34 ROS Limited/Unobtainable: No Constitutional: Denies: chills, fever Cardiovascular: Denies: chest pain Respiratory: Denies: cough Gastrointestinal/Abdominal: Denies: abdomen distended, abdominal pain Hematologic/Lymphatic: Denies: anemia, easy bleeding, easy bruising, other Allergies: Coded Allergies: No Known Allergies (Unverified , 10/30/19) Objective Last 24 Hour Vital Signs Date Time Temp Pulse Resp B/P (MAP) Pulse Ox O2 Delivery O2 Flow Rate FiO2 11/04/19 19:26 83 18 99 Nasal Cannula 3.0 32 81 18 95 11/04/19 19:25 95 Nasal Cannula 3.0 32 11/04/19 15:57 97.6 74 20 133/56 97 Nasal Cannula 2.0 11/04/19 13:39 76 16 98 Nasal Cannula 3.0 32 82 18 93 11/04/19 11:59 98.2 79 18 122/63 94 Nasal Cannula 2.0 11/04/19 09:00 Nasal Cannula 3.0 11/04/19 08:51 88 18 94 Nasal Cannula 3.0 32 90 16 92 11/04/19 08:51 94 Nasal Cannula 3.0 32 11/04/19 08:00 97.7 85 22 130/73 94 11/04/19 04:02 98.7 11/04/19 04:00 97.9 76 19 127/67 93 11/04/19 00:00 98.7 81 18 108/66 92 11/03/19 22:25 Nasal Cannula 3.0 11/03/19 20:00 98.3 77 19 113/58 92 11/03/19 20:00 76 20 96 Nasal Cannula 3.0 32 74 20 93 11/03/19 20:00 94 Nasal Cannula 3.0 32 Intake and Output 11/03/19 11/04/19 19:00 07:00 Intake Total 240 ml 250 ml Balance 240 ml 250 ml Intake Oral 240 ml 250 ml # Voids 2 3 # Bowel Movements 3 Laboratory Tests 11/04/19 05:10: White Blood Count 10.0, Red Blood Count 4.22, Hemoglobin 13.1, Hematocrit 38.0, Mean Corpuscular Volume 90, Mean Corpuscular Hemoglobin 30.9, Mean Corpuscular Hemoglobin Concent 34.3, Red Cell Distribution Width 12.8, Platelet Count 212, Mean Platelet Volume 7.5, Neutrophils (%) (Auto) 79.2H, Lymphocytes (%) (Auto) 9.7L, Monocytes (%) (Auto) 4.7, Eosinophils (%) (Auto) 5.5H, Basophils (%) (Auto ) 0.9, Sodium Level 142, Potassium Level 4.2, Chloride Level 102, Carbon Dioxide Level 37H, Anion Gap 4L, Blood Urea Nitrogen 16, Creatinine 1.0, Estimat Glomerular Filtration Rate 54.0, Glucose Level 97, Calcium Level 9.4 Height (Feet): 5 Height (Inches): 3.00 Weight (Pounds): 324 General Appearance: no apparent distress, alert Neck: normal alignment, supple Cardiovascular: normal rate, regular rhythm Respiratory/Chest: lungs clear, normal breath sounds, no respiratory distress Abdomen: non tender, soft Extremities: non-tender Neurologic: awning frame maker II-XII grossly normal, no motor/sensory deficits, abnormal gait , alert, oriented x 3 Mateusz Gama MD Nov 04, 2019 19:59
[2019-11-04 20:00] VITALS: BP 121/72
--- NOTE | 2019-11-04 20:00 | NUR ---
nurse's notes: received patient awake, alert and oriented; able to walk to the bathroom with her own walker, however, needs help getting up from bed; noted SOB on exertion; voids freely; denies pain; plan of care discussed with patient who verbalized understanding and agreement.
[2019-11-05] VITALS: BP 133/68
[2019-11-05] MEDS: Albuterol/Ipratropium 3ml neb HHN SCH ×3 (01:09→12:43)
--- NOTE | 2019-11-05 03:19 | NUR ---
nurse's notes: Per Ralf of [facility] no bed available for this patient in their hospital; Harsh, nuclear medicine officer made aware; will relay to day shift.
[2019-11-05 04:00] VITALS: BP 138/68
--- NOTE | 2019-11-05 06:56 | NUR ---
nurse's notes: no significant changes noted this shift; sponge bath given including perineal care; still with SOB on exertion; no falls, no new skin issues; VSS
--- NOTE | 2019-11-05 07:30 | NUR ---
NURSE NOTES: WALKING ROUNDS DONE WITH OUTGOING RN. PATIENT AWAKE IN BED HAVING BREAKFAST. QUESTIONS ANSWERED, NEEDS MET. DISCUSSED PLAN OF CARE FOR THE DAY.VERBALIZED UNDERSTANDING. BED IN LOW AND LOCKED POSITION. CALL LIGHT WITHIN REACH.
[2019-11-05 08:00] VITALS: BP 141/69
[2019-11-05] MEDS: Docusate 100mg cap ORAL SCH (09:00)
--- NOTE | 2019-11-05 09:00 | Consultation ---
DATE OF CONSULTATION: 11/04/2019 NEUROLOGIC CONSULTATION CONSULTING PHYSICIAN: Tom Berrios M.D. 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 I was asked to see the patient for abnormal CT scan of the brain, possible shunt malfunction, and altered mental status. HISTORY OF PRESENT ILLNESS: The patient apparently had a right-sided arteriovenous malformation and subsequently had surgery around 03/13/2009. She "cannot remember anything after her surgery until 04/12/2010." The patient subsequently had a shunt placed in 2009. One year later, she had a shunt revision. The shunt was placed at [facility]. She last saw a neurosurgeon 9 years ago. On Monday, the patient saw Dr. Salvador complaining of pain in the back of her neck on the left side. 911 was called and she was brought somewhat confused to this hospital. The patient initially was found to have an elevated white count of over 15,000, but was not anemic. Platelets were normal. The white count decreased and came up again on 11/01/2019 and 11/02/2019. There was a left shift. The patient's initial chemistries were remarkable for slightly elevated BUN, minimally elevated creatinine of 1.4, elevated blood sugars high being 158. The patient has a slightly low albumin. Magnesium and calcium were normal. She had slightly low GFR. The patient's D-dimer was elevated at 1.36. Urinalysis was basically normal. Her imaging studies reveal mild interstitial congestion and cardiomegaly on the chest x-ray. 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 Cardiomegaly and basilar ground-glass opacities were noted in the lungs, which could reflect pulmonary edema. The venous duplex scan on 10/30/2019 was positive for acute left femoral deep venous thrombosis. The chest CT angiogram was abnormal with dilated right and left main pulmonary arteries suspicious for pulmonary hypertension. The patient previously had a distended gallbladder and some calcifications in the spleen. She had a parapelvic cyst of the kidney, calcification left ovary. There were no focal liver lesions. The pancreas was unremarkable . The abdominal ultrasound on 10/30/2019 was negative for gallstones and dilated bile ducts and no large fatty liver was noted. The chest x-ray on 10/31/2019 was unchanged. The patient had a head CT scan on 10/31/2019, which was significantly abnormal. There was no evidence of hydrocephalus, but there was a questionable focus of acute subdural hematoma along the lateral aspect of the tentorium on the left. She also had a suspected 4 mm thick right anterior convexity subdural hematoma mostly subacute/old or small acute component as noted. She had postsurgical changes and right parietal ventriculostomy was noted to suggest ventricular atrial shunt. The patient had a lipase on admission of 1064 and an elevated pro brain-natriuretic peptide, and a slightly elevated BUN 20. Creatinine was normal. The patient did have a surgical consultation. A diagnosis of pancreatitis was made along with acute respiratory failure. She also had an evaluation for hydronephrosis by Dr. Bedolla. It was thought to be a questionable 4 mm stone in the left kidney with hydronephrosis noted on the ultrasound. Possible neurogenic bladder was mentioned. The patient was evaluated for abdominal pain by Dr. Hermosillo. He noted that there is no CT evidence of pancreatitis and the patient was asymptomatic and she denied alcohol. We ordered a lipid panel . An echocardiogram on 10/30/2019 revealed a grossly normal ejection fraction, mild left atrial enlargement, focal aortic valve sclerosis, moderate mitral anulus and aortic root calcification, moderate thickened mitral valve leaflets. There was trace mitral regurgitation. The left ventricular chamber was normal. The lipase was decreased to 227. The amylase was never tested. The patient initially was found to have no focal signs and normal cranial nerves by Dr. Godoy. The patient's initial neurologic exam was felt to be normal by the emergency room doctor; however, the family felt that the patient may have some problem with her mental status. She was also seen by Dr. Rollins, psychiatrist, who felt her insight and judgment is fair. Cognition is impaired. She had restricted affect with congruent mood, but she was alert and oriented to place, situation, and date. She was placed on Cymbalta. The patient was placed on Cymbalta 30 mg daily, DuoNeb, ibuprofen, insulin sliding scale, levothyroxine for history of hypothyroidism, Protonix, for constipation, and tramadol. I was asked to see the patient in neurologic consultation. The patient denies any history of seizures or blackout spells. The patient has used a walker for at least a year, mostly because of right knee problems, although she has never had surgery on it. It is painful to walk. She also sees Dr. Green, urologist for incontinence. The patient has been on the Myrbetriq, however, incontinence has actually been better after she has been placed on Myrbetriq. About a year ago, she fell and hit her head. There is no history of stroke. She has had decreased sense of smell for at least 2 years. She has presbyopia and wears reading glasses. She has bilateral hearing loss, which is bilaterally symmetrical without tinnitus. There is no dysarthria, dysphagia, or arm weakness. She does not drink or smoke at this point. She quit smoking 20 years ago. Smoked at least 60 pack years. She has no illicit drug use. She has paresthesias in her right hand and in the top of the right thigh. She has occasional twitching in her right eye. There is no family history of neurologic disease. She denies any headaches at this time. PAST MEDICAL HISTORY/PAST MEDICAL ILLNESSES: 1. COPD. 2. Right-sided cerebral AVM. 3. History of deep vein thrombosis, status post IVC filter. 4. Gallstones in the past. 5. Severe obesity. 6. Left parotid lesion, status post surgery in the past. 7. Bilateral Achilles tendon injuries with Achilles tendon surgery 20 years ago. 8. Fifth finger fracture in the past. 9. Bilateral cataracts surgery 2 to 3 years ago. ALLERGIES: She is allergic to pollen. SOCIAL HISTORY: She is . Has 2 children, in good health. HABITS: See above. FAMILY HISTORY: Her father of COPD, heavy smoker. Her mother of pancreatic cancer. She has a sister with SLE and fibromyalgia. There is no family history of neurologic disease. MEDICATIONS: At home, she was on vitamin D3, duloxetine 60 mg, gabapentin 300 mg, ibuprofen 600 mg, meloxicam 15 mg, Myrbetriq 50 mg, atorvastatin Lipitor 20 mg. REVIEW OF SYSTEMS: Her appetite is good. She weighs 325 pounds, 5 feet 3 inches tall. Rest of the review of systems is noncontributory. PHYSICAL EXAMINATION: GENERAL: She is a well-developed, very obese woman, lying in bed, in no acute distress. VITAL SIGNS: Blood pressure is 88/90, pulse is 85 and regular, temperature is 97.7 degrees, respiration rate is anywhere from 19 to 22 with some slight respiratory distress. HEENT: Examination of her head reveals that she has upper dentures, poor dentition, and a surgical scar behind the left ear. She had a right frontal skull defect, probably it is on ankit hole and a scar behind the left ear. NECK: Supple. There is no tenderness. Carotids are +1 to 2. There is either a transmitted murmur on the left or a left carotid bruit. LUNGS: There is a focal wheeze in the right middle lung field. The respiratory sounds are decreased otherwise, but clear. CARDIOVASCULAR: PMI not felt. JVP not seen. The patient had a grade 1 to 2/6 crescendo decrescendo heart murmur heard best at the right second intercostal space midclavicular line. There is no S3 or S4 noted. ABDOMEN: Obese. Bowel sounds are intact. No organomegaly appreciated. BACK: Could not be tested. EXTREMITIES: There is minimal to no peripheral edema, but there was tenderness below her knees to palpation in both legs. NEUROLOGIC EXAMINATION: MENTAL STATUS: Judgment, her judgment was normal. She was alert and awake. Affect, affect is appropriate. Memory, past memory is intact for her birthday, 1945, and immediate recall is 3/3 objects. Recent recall is 2/3 objects at 5 minutes, 3/3 with prompting. Intellect, similarities were abstract, i.e., bicycle and train are forms of transportation. Watch and ruler are forms of measurement. There is no right left confusion or finger agnosia. Spoken speech was slow without paraphasias. Repetition was intact. She could spell world backwards "DLROW." CRANIAL NERVE EXAMINATION: CRANIAL NERVE II: Visual freed are intact to confrontation. Fundi were not visualized. CRANIAL NERVES III, IV, AND : Extraocular motility was full. Pupils are approximately 3 mm, sluggishly reactive to light. CRANIAL NERVE V: Facial and corneal sensation were intact to fine touch. CRANIAL NERVE VII: Facial strength was 5/5 bilaterally. CRANIAL NERVE VIII: Auditory acuity was basically intact AU. CRANIAL NERVES IX AND X: Gag was intact bilaterally. CRANIAL NERVE XI: Sternocleidomastoid strength is 5/5. CRANIAL NERVE XII: Tongue protrudes in the midline without fasciculations or atrophy. MUSCLE EXAMINATION: Muscle bulk and tone are normal. Strength is 5/5 proximally and distally. There was no pronator drift. There was no asterixis. There is occasional slight twitching of the right hand with hands extended. REFLEXES: +1 in the upper extremities, 0 at the knees and ankles with downgoing toes and testing for Babinski response. COORDINATION: [id number] and partial [id number] testing were normal. GAIT AND STATION: Could not be tested. SENSORY EXAMINATION: Pinprick was difficult to evaluate. There is some decreased pinprick above the ankles bilaterally, in the lower extremities is normal. In the upper extremities, proprioception was normal. Fine touch was probably intact. IMPRESSION: This patient has had a previous arteriovenous malformation with surgeries to remove it. She also had hydrocephalus with a ventriculoatrial shunt placed. She has acute to subacute two subdural hematomas, which may be related to problems with pressure in the shunt. Therefore, she will need to be evaluated by Neurosurgery. However, it is causing very little to no changes in her mental status. Any other changes in her mental status may have been due to metabolic encephalopathy from her acute illness. The patient's lipase is very high, which came down quickly, the cause of which is unknown. She is not hypothyroid and she is not newly anemic. The patient did have a CT scan yesterday. There was no acute abnormality; however, she had a small left anterior convexity, mostly low attenuation subdural hematoma, which is low in attenuation from her previous CT scan consistent with evolution . She also had a focal acute component consistent with expected evolution. She has bilateral frontal growth from a craniotomy noted as a flap. There was evidence of bilateral cataract surgery. She also has encephalomalacia involving the inferior anterior right frontal lobe left frontal lobe. There is a ventriculoperitoneal shunt via right parietal approach. It also suggests that the subdural were , but there is no new head injury. The patient is improved. We will send her over to [facility] today to have her shunt evaluated subdural hematomas surgical lesions. PLAN: We will send the patient over to [facility] for shunt evaluation and subdural hematoma evaluation. Also send this consult over to [facility] as well. Tom Berrios MD DR: DEB JOB#: [id number] CC:
--- NOTE | 2019-11-05 09:14 | Urology Progress Note ---
Assessment/Plan Status: stable Assessment/Plan: 1. Questionable hydronephrosis. 2. Renal cyst. 3. Renal calcification. 4. Urinary frequency. 5. Possible neurogenic bladder. 6. mild CORINNA, improved. monitor clinically d/w radiologist no obvious hydro noted on CT monitor renal fxn, improved s/p abx serial renal imaging consider cysto as outpt Subjective Allergies: Coded Allergies: No Known Allergies (Unverified , 10/30/19) Subjective looks comfortable Objective Last 24 Hour Vital Signs Date Time Temp Pulse Resp B/P (MAP) Pulse Ox O2 Delivery O2 Flow Rate FiO2 11/05/19 08:06 95 Nasal Cannula 3.0 32 11/05/19 08:00 98.4 85 20 141/69 95 Nasal Cannula 3.0 90 11/05/19 07:57 88 19 96 Nasal Cannula 3.0 32 85 19 94 11/05/19 04:00 97.4 81 20 138/68 94 Nasal Cannula 2.0 11/05/19 01:09 85 18 98 Nasal Cannula 3.0 32 83 18 95 11/05/19 00:00 98.5 84 20 133/68 97 Nasal Cannula 2.0 11/04/19 21:00 Nasal Cannula 3.0 11/04/19 20:00 98.4 78 20 121/72 95 Nasal Cannula 2.0 11/04/19 19:26 83 18 99 Nasal Cannula 3.0 32 81 18 95 11/04/19 19:25 95 Nasal Cannula 3.0 32 11/04/19 15:57 97.6 74 20 133/56 97 Nasal Cannula 2.0 11/04/19 13:39 76 16 98 Nasal Cannula 3.0 32 82 18 93 11/04/19 11:59 98.2 79 18 122/63 94 Nasal Cannula 2.0 Intake and Output 11/04/19 11/05/19 19:00 07:00 Intake Total 250 ml 200 ml Balance 250 ml 200 ml Intake Oral 250 ml 200 ml # Voids 5 5 # Bowel Movements 1 Microbiology Date/Time Source Procedure Growth Status 10/30/19 23:50 Blood Blood Culture - Final NO GROWTH AFTER 5 DAYS Complete 10/30/19 15:30 Nasal Nares - Final Complete 10/30/19 15:30 Nasal Nares - Final Complete Current Medications Medications (Trade) Dose Ordered Sig/Cecily Route PRN Reason Start Time Stop Time Status Last Admin Dose Admin Albuterol/ Ipratropium (Albuterol/ Ipratropium) 3 ml Q6H PRN HHN wheezing/SOB 11/03/19 16:49 11/08/19 16:48 Albuterol/ Ipratropium (Albuterol/ Ipratropium) 3 ml Q6HRT HHN 11/03/19 19:00 11/05/19 13:59 11/05/19 07:57 Bisacodyl (Dulcolax) 10 mg HSPRN PRN RECTAL Constipation 11/03/19 16:48 12/03/19 16:47 Dextrose (Dextrose 50%) 25 ml Q30M PRN IV Hypoglycemia 11/03/19 17:00 11/29/19 18:29 Dextrose (Dextrose 50%) 50 ml Q30M PRN IV Hypoglycemia 11/03/19 17:00 11/29/19 18:29 Docusate Sodium (Colace) 100 mg EVERY 12 HOURS ORAL 11/03/19 21:00 11/29/19 21:59 11/04/19 21:01 Duloxetine HCl (Cymbalta) 30 mg DAILY ORAL 11/04/19 09:00 12/03/19 08:59 11/04/19 09:44 Ibuprofen (Motrin) 800 mg TIDPRN PRN ORAL Mild Pain (Pain Scale 1-3) 11/03/19 16:49 12/03/19 16:48 Levothyroxine Sodium (Synthroid) 100 mcg DAILY@0630 ORAL 11/04/19 06:30 12/01/19 06:29 11/05/19 05:42 Magnesium Hydroxide (Mom) 30 ml HSPRN PRN ORAL Constipation 11/03/19 16:49 12/03/19 16:48 11/03/19 17:05 Polyethylene Glycol (Miralax) 17 gm HSPRN PRN ORAL Constipation 11/03/19 16:49 12/03/19 16:48 Prochlorperazine (Compazine) 10 mg Q6H PRN IVP Nausea & Vomiting 11/03/19 16:49 12/03/19 16:48 Tramadol HCl (Ultram) 50 mg Q6H PRN ORAL Moderate Pain (Pain Scale 4-6) 11/03/19 16:49 11/10/19 16:48 11/04/19 03:32 Height (Feet): 5 Height (Inches): 3.00 Weight (Pounds): 324 Objective exam stable Raymundo Bedolla MD Nov 05, 2019 09:14
[2019-11-05] MEDS: DULoxetine 30mg cap ORAL SCH (09:26)
--- NOTE | 2019-11-05 09:40 | Neurology Progress Note ---
Interim History Interim History ROS Limited/Unobtainable: No Complaints: patient doing well Review of Systems All Systems: reviewed and negative except above - patient can be d.c. subdurals probably not due to recurrent avm amyloid angiopathy,aneurysm,due to shunt malfunction. Objective Physical Exam Last Vital Signs Date Time Temp Pulse Resp B/P (MAP) Pulse Ox O2 Delivery O2 Flow Rate FiO2 11/05/19 08:06 95 Nasal Cannula 3.0 32 11/05/19 08:00 98.4 85 20 141/69 90 Impression/Recommendations Status: stable Tom Berrios MD Nov 05, 2019 09:40
--- NOTE | 2019-11-05 10:01 | Surgery Progress Note ---
Surgery Progress Note Subjective Additional Comments no acute events Objective Last 24 Hour Vital Signs Date Time Temp Pulse Resp B/P (MAP) Pulse Ox O2 Delivery O2 Flow Rate FiO2 11/05/19 08:06 95 Nasal Cannula 3.0 32 11/05/19 08:00 98.4 85 20 141/69 95 Nasal Cannula 3.0 90 11/05/19 07:57 88 19 96 Nasal Cannula 3.0 32 85 19 94 11/05/19 04:00 97.4 81 20 138/68 94 Nasal Cannula 2.0 11/05/19 01:09 85 18 98 Nasal Cannula 3.0 32 83 18 95 11/05/19 00:00 98.5 84 20 133/68 97 Nasal Cannula 2.0 11/04/19 21:00 Nasal Cannula 3.0 11/04/19 20:00 98.4 78 20 121/72 95 Nasal Cannula 2.0 11/04/19 19:26 83 18 99 Nasal Cannula 3.0 32 81 18 95 11/04/19 19:25 95 Nasal Cannula 3.0 32 11/04/19 15:57 97.6 74 20 133/56 97 Nasal Cannula 2.0 11/04/19 13:39 76 16 98 Nasal Cannula 3.0 32 82 18 93 11/04/19 11:59 98.2 79 18 122/63 94 Nasal Cannula 2.0 I&O Intake and Output 11/04/19 11/05/19 18:59 06:59 Intake Total 250 ml 200 ml Balance 250 ml 200 ml Intake Oral 250 ml 200 ml # Voids 5 5 # Bowel Movements 1 Cardiovascular: RSR Respiratory: clear, decreased breath sounds, other Abdomen: soft, present bowel sounds Extremities: no tenderness, no cyanosis, other Plan Problems: (1) Pancreatitis Assessment & Plan: 74-year-old male with pancreatitis potentially believed to be related to biliary source. Biliary imaging reviewed as well as CT and unlikely. Pancreatitis potential related to medications or lipids. No acute surgical intervention indicated recommended. Will follow with recommendations. Thank you for let me participate in patient's care. Trend labs. Okay for diet. Patient currently asymptomatic from pancreatitis and chemical only. labs improving exam benign d/c planning Findings: Gallbladder is distended, without stones, wall thickening, nor pericholecystic fluid. Sonographic Robins's sign is negative. Common bile duct measures 5 mm in diameter. No intrahepatic biliary it . Ductal dilatation. Liver demonstrates diffusely increased echogenicity, consistent with diffuse hepatocellular disease, most likely fatty change. It is somewhat enlarged. Portal vein and hepatic veins are patent. Pancreas is unremarkable. Spleen is unremarkable. Left kidney measures 8.9 cm in length. Right kidney measures 9.9 cm length. Both kidneys demonstrate normal echogenicity. The left kidney is poorly visualized. It demonstrates what appears to be hydronephrosis, but on earlier CT scan is demonstrated to be one or more parapelvic cysts.. Demonstrates an echogenic focus in the left renal sinus which is presumably artifactual as no calculi are demonstrated on earlier CT scan. Abdominal aorta is partially obscured by bowel gas, visualized portions are non-aneurysmal . Impression: Negative for gallstones or dilated bile ducts Enlarged fatty liver Left renal parapelvic cysts Note nonvisualization of portions of the abdominal aorta Findings: Numerous large abdominal and pelvic wall and flank collateral veins are demonstrated. There is marked narrowing of the bilateral external iliac arteries , and absence of the bilateral common iliac arteries. There is an inferior vena cava filter. There is absence of the inferior vena cava immediately below the filter. However, the lumen of the inferior vena cava or the filter is is presumably patent, opacified with contrast. There is mild gaseous distention of the sigmoid colon, without evidence of downstream obstruction. The appendix is not definitely identified, but no findings to suggest acute appendicitis are evident. No evidence of colonic diverticulosis or diverticulitis. No small bowel distention. No free or loculated intraperitoneal gas or fluid is evident. The gallbladder is distended. No gallstones. No biliary ductal dilatation. Liver demonstrates minimal fatty infiltration. No focal liver lesions. No biliary ductal dilatation. Pancreas is unremarkable. The spleen demonstrates a granulomatous calcification in the upper pole. The adrenals are hypertrophied. The right adrenal demonstrates a somewhat ill-defined 2.6 x 1.6 cm mass. The left adrenal demonstrates an ill-defined 1.4 x 1.6 cm mass. No retroperitoneal or mesenteric mass or adenopathy. The right kidney is unremarkable. The left kidney demonstrates a complex parapelvic cyst. The uterus is unremarkable. There is a calcification in the left ovary.. The bones are unremarkable except for a bone island in the right femoral head and considerable degenerative spondylosis changes. The heart is enlarged. The tip of a central venous catheter is seen at the cavoatrial junction. The lung bases demonstrate diffuse groundglass opacity. There are also some atelectatic changes. There are mitral annular calcifications. Impression: No acute abnormality Inferior vena cava filter. 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 Extensive abdominal wall collaterals noted. Mild fatty liver Bilateral adrenal masses, possibly adenomas. Consider adrenal protocol MRI for better characterization Cardiomegaly or graft cardiomegaly Basilar groundglass opacities, may reflect pulmonary edema. There are also basilar pulmonary atelectatic changes Incidental findings as noted, including central venous catheter, right femoral head bone island,, left ovarian calcification, evidence of old granulomatous disease within the spleen (2) Presence of IVC filter Assessment & Plan: Findings: The central venous catheter demonstrated on the earlier imaging studies is demonstrated to be the downstream end of a ventriculoatrial shunt. Shunt reservoir, occipital ankit hole, and intracranial portion are demonstrated on the lateral view. No prevertebral soft tissue swelling. No epiglottic swelling or hypopharyngeal distention. Impression: Previously questioned central venous catheter is demonstrated to actually represent the downstream end of a right-sided ventriculoatrial shunt Impression: Small left anterior convexity mostly low-attenuation subdural hematoma. This appears lower in attenuation than previously, consistent with evolution to chronicity. Previously demonstrated focal acute component has also decreased in attenuation, consistent with expected evolution. Unchanged postsurgical changes, as described. Unchanged right inferior frontal and left anterior frontal encephalomalacia, likely related to such No new/acute abnormality Олег Webster Nov 05, 2019 10:01
--- NOTE | 2019-11-05 10:36 | GI Progress Note ---
Assessment/Plan Problems: (1) Pancreatitis ICD Codes: K85.90 - Acute pancreatitis without necrosis or infection, unspecified SNOMED: 33603141 (2) Acute respiratory failure ICD Codes: J96.00 - Acute respiratory failure, unspecified whether with hypoxia or hypercapnia SNOMED: 08438193 (3) Acute encephalopathy ICD Codes: G93.40 - Encephalopathy, unspecified SNOMED: 73379448, 544046123 Status: stable, unchanged Status Narrative Discussed with Dr. Hermosillo. Assessment/Plan 1. Hypothyroidism. 2. 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 3. Morbid obesity. 4. History of DVT requiring IVC filter placement. 5. History of cataract requiring surgery. Constipation plan for transfer to [facility] today, cancelled due to no bed no evidence of pancreatitis improved amylase and lipase on diet bowel regimen will follow The patient was seen and examined at bedside and all new and available data was reviewed in the patients chart. I agree with the above findings, impression and plan. (Patient seen earlier today. Signature stamp does not reflect patient encounter time.). - Stephen Hermosillo MD Subjective Subjective constipation had BM yesterday, but small amount Objective Last 24 Hour Vital Signs Date Time Temp Pulse Resp B/P (MAP) Pulse Ox O2 Delivery O2 Flow Rate FiO2 11/05/19 08:06 95 Nasal Cannula 3.0 32 11/05/19 08:00 98.4 85 20 141/69 95 Nasal Cannula 3.0 90 11/05/19 07:57 88 19 96 Nasal Cannula 3.0 32 85 19 94 11/05/19 04:00 97.4 81 20 138/68 94 Nasal Cannula 2.0 11/05/19 01:09 85 18 98 Nasal Cannula 3.0 32 83 18 95 11/05/19 00:00 98.5 84 20 133/68 97 Nasal Cannula 2.0 11/04/19 21:00 Nasal Cannula 3.0 11/04/19 20:00 98.4 78 20 121/72 95 Nasal Cannula 2.0 11/04/19 19:26 83 18 99 Nasal Cannula 3.0 32 81 18 95 11/04/19 19:25 95 Nasal Cannula 3.0 32 11/04/19 15:57 97.6 74 20 133/56 97 Nasal Cannula 2.0 11/04/19 13:39 76 16 98 Nasal Cannula 3.0 32 82 18 93 11/04/19 11:59 98.2 79 18 122/63 94 Nasal Cannula 2.0 Intake and Output 11/04/19 11/05/19 19:00 07:00 Intake Total 250 ml 200 ml Balance 250 ml 200 ml Intake Oral 250 ml 200 ml # Voids 5 5 # Bowel Movements 1 Height (Feet): 5 Height (Inches): 3.00 Weight (Pounds): 324 General Appearance: WD/WN, no apparent distress, alert Cardiovascular: normal rate Respiratory/Chest: normal breath sounds, no respiratory distress Abdominal Exam: normal bowel sounds, non tender, soft Extremities: normal range of motion, non-tender Lula Torres BALLING HEAD TENDER Nov 05, 2019 10:36
--- NOTE | 2019-11-05 11:32 | NUR ---
RD ASSESSMENT & RECOMMENDATIONS SEE CARE ACTIVITY FOR COMPLETE ASSESSMENT DAILY ESTIMATED NEEDS: Needs based on obesity, cardiac/ 78kg abw 20-23 kcals/kg 4381-6051 total kcals 1-1.5 g protein/kg 78-117 g total protein 25-30 mL/kg 6028-4282 total fluid mLs NUTRITION DIAGNOSIS: * Morbid obesity R/T life style factors, mostly bedbound, excessive energy intake as evidenced by BMI >50. * Altered nutrition related lab values R/T pre-diabetes as evidenced by A1C of 6.0. CURRENT DIET:REGULAR PO DIET RECOMMENDATIONS: CCHO LOW, CARDIAC ADDITIONAL RECOMMENDATIONS: * Standing wt for accurate CBW * Monitor BGs, need for hypoglycemics: A1C 6.0 * Diet education on wt loss provided
--- NOTE | 2019-11-05 11:45 | NUR ---
CHARGE NURSE NOTES: O2 sats run 89-90% on RA at rest, & 88-89% RA on ambulation. Pt has anxiety attack during ambulation & starts episode of SOB. Dr Shea made aware. Stat CXR done.
[2019-11-05 12:00] VITALS: BP 128/59
--- NOTE | 2019-11-05 14:09 | NUR ---
TRANSFER PENDING: SPOKE TO [facility] FROM [facility] AT THIS TIME NO BED ARE AVAILABLE
--- NOTE | 2019-11-05 14:30 | Diagnostic Imaging Report ---
Indication: Dyspnea Comparison: 10/31/2019 A single view chest radiograph was obtained. Findings: Mild pulmonary vascular congestion suspected with cardiomegaly. There is a HAND WOOD SANDER shunt on the right. Bones are osteopenic. IMPRESSION: Mild pulmonary vascular congestion
[2019-11-05 16:00] VITALS: BP 141/80
--- NOTE | 2019-11-05 16:15 | Progress Note ---
DATE: 11/05/2019 SUBJECTIVE: The patient is doing well. No headaches, seizures, or blackouts. PHYSICAL EXAMINATION: VITAL SIGNS: Her temperature is 98.4 degrees, respiratory rate is 20, pulse is 90. MENTAL STATUS: She can spell world backwards with a little difficulty. Language functions are normal. IMPRESSION: The patient has subdural hematoma, which may be related to shunt malfunction. I doubt recurrent AVM or amyloid angiopathy. Aneurysm is unlikely. However, the patient will need to see a neurosurgeon immediately. She can be discharged since we do not have a neurosurgeon on staff here. The patient will need MRI/MRA of the brain or CT angiogram or perhaps angiogram and shunt evaluation. PLAN: 1. The patient is being discharged. 2. Immediate neurosurgical consultation. Tom Berrios MD DR: DEB JOB#: [id number] CC:
--- NOTE | 2019-11-05 16:23 | NUR ---
*-* DISCHARGE PLANNING *-* PATIENT HAS BEEN ACCEPTED TO: [facility] ATTN: KAIDEN P: [phone] F: [phone]
--- NOTE | 2019-11-05 16:32 | NUR ---
NURSE NOTES: PATIENT UP WITH WALKER TO BATHROOM MULTIPLE TIMES TODAY TO VOID. GAIT STEADY. SOB WITH EXERTION.WILL CONTINUE TO MONITOR.
--- NOTE | 2019-11-05 17:43 | Discharge Summary ---
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 On admission pt found to have pancreatitis as well as left moderate hydronephrosis of kidney. Admitted to the medical service for acute respiratory failure SIRS and possible acute pancreatitis. CTA chest negative ofr PE, TTE was negative, US was negative for cholelithiasis. Seen by Surgery and GI, no role for ERCP or cholecystectomy. Patient had head CT which showed 4 mm right subdural hematoma, mostly subacute/ old but with a focal small acute component, Neurology was consulted and we were initially attempting to transfer her to [facility] for Neurosurgery eval however neuological status was stable and encephalopathy resolved, she will follow up with Neurosurgery as outpatient after discussion with PCP. #Pleuritic chest pain, unclear etiology. Could be referred pain from pancreas or gallbladder - Resolved #Pancreatitis, unclear etiology. Denies history of alcohol use and abdominal ultrasound negative for gallstones or cholecystitis.Per family/PCP pt was taking supplements for weight loss, possible etiology #Family history of pancreatic cancer #Acute hypoxic respiratory failure (Tachypnea) secondary to pulmonary edema- resolving #Sirs (WBC, tachypnea), no source at this time. Could be 2/2 pancreatitis - resolved -transfer from SDU to med surg -Troponins negative x 3, 2D echocardiogram: Poor study. Grossly normal EF and no wall motion abnormalities. IVC normal size. -CT pulmonary angiogram negative for PE -Blood cultures x2 NGTD -GI following -Surgery consult for abdominal pain/referred chest pain and cholecystitis: Dr. Webster - No surgical interventions at this time - CXR with persistent pulmonary edema- > s/p Lasix 20mg IV x 1, appears euvolemic on exam -Zosyn (10/30 -11/01)- Discontinued as no source of infection - pain control -PT #4 mm right subdural hematoma, mostly subacute/old but with a focal small acute component, as described. Mild local mass effect. There is a more questionable focus of acute subdural hematoma along the lateral aspect of the tentorium on the left. #acute metabolic encephalopathy. 2/2 above - Repeat CT head shows progression in chronicity of SDH - cont. to trend labs - off Abx - Continue to monitor - pt clinically improving - If bed not available at [facility] may need outpatient neurosurg eval - Neurology Dr. Berrios pending - Repeat CT head today #Moderate hydronephrosis of left kidney of uncertain etiology #0.4 cm nonobstructing lower pole left kidney stone -seen by Dr. Bedolla -urology consult: Dr. Bedolla- Suspect more of a renal cyst then hydronephrosis. no intervention for now -Trend creatinine -IV fluids as above #CORINNA, POA -Continue to monitor -avoid nephrotoxins #Left lower extremity DVT > S/p IVC filter, pt is not OAC candidate - SCDs on right leg #Hypothyroidism -Continue home Synthroid #History of ICH secondary to AVM #History of AVM of brain #History of DVT status post IVC filter due to contraindication for anticoagulation #Absolute contraindication to any further anticoagulation. #Bilateral adrenal adenomas -Outpatient endocrine eval #Morbid obesity DVT prophylaxis: HSQ Code status: Full but no prolonged intubation I spent 40 minutes in preparing the discharge which included time spent coordinating with RN, manager field service, consulting MDs and PCP Time of note may not reflect time patient was seen. Discharge Medications Continued Medications: Atorvastatin Calcium* (Atorvastatin Calcium*) 20 Mg Tablet 20 MG ORAL BEDTIME for cholesterol, TAB (This prescription has been renewed) Cholecalciferol (Vitamin D3) (Vitamin D3) 10 Mcg Capsule Unknown Dose PO DAILY for supplement, CAP (This prescription has been renewed) Duloxetine Hcl* (Cymbalta*) 60 Mg Capsule.dr 60 MG ORAL DAILY for DEPRESSION, CAP (This prescription has been renewed) Gabapentin* (Gabapentin*) 300 Mg Capsule 300 MG ORAL for NERVE PAIN, CAP (This prescription has been renewed) Ibuprofen* (Motrin*) 600 Mg Tablet 600 MG ORAL for PAIN, #30 TAB 0 Refills (This prescription has been renewed) Levothyroxine Sodium* (Synthroid*) 75 Mcg Tablet 100 MCG ORAL DAILY for hypothyroidism, TAB Take in the morning on an empty stomach, at least 30 minutes before food. Meloxicam* (Meloxicam*) 15 Mg Tablet 15 MG PO DAILY for PAIN, TAB (This prescription has been renewed) Mirabegron (Myrbetriq) 50 Mg Tab.er.24h 50 MG PO for OVERACTIVE BLADDER, TAB (This prescription has been renewed) Discharge Condition Upon Discharge: improving Discharge Vital Signs Last Vital Signs Date Time Temp Pulse Resp B/P (MAP) Pulse Ox O2 Delivery O2 Flow Rate FiO2 11/05/19 16:00 97.1 109 21 141/80 (100) 11/05/19 12:44 97 Nasal Cannula 3.0 32 93 Discharge Disposition Patient was discharged to home with home health Discharge Diagnoses: (1) Acute respiratory failure (2) Acute encephalopathy (3) Pancreatitis (4) Hypothyroid (5) Morbid obesity Mateusz Gama MD Nov 05, 2019 17:43
--- NOTE | 2019-11-05 18:00 | NUR ---
NURSE NOTES: DISCHARGE ORDER RECEIVED FROM PCP. PATIENT AWARE. STATES DAUGHTER WILL BE HERE IN A FEW HOURS; CURRENTLY AT WORK. D/C INSTRUCTIONS IN CHART. WILL ENDORSE TO NEXT RN.
--- NOTE | 2019-11-05 19:43 | NUR ---
NURSE NOTES: Received report from Pedro Caballero, pt is A/O x4. Pt is sitting at the edge of the bed with family by the bed side . No s/s of respiratory distress , no c/o of the pain no n/v .. Pt has i.v site on R Forearm hep locked Pt d/c , will give d/c teaching. Will continue to monitor pt before d/C
--- NOTE | 2019-11-05 19:50 | NUR ---
HAND-OFF: Report given to LIBERTY LEAL RN.
--- NOTE | 2019-11-05 20:10 | NUR ---
NURSE NOTES: D/C Teaching done and pt verbalized understanding of instructions ,d/c paperwork singed by pt. Vitals T 98.6 BP 117/66 P 77 RR20 O2sat 100 RA Pain 0/10Escorted pt to the front of the ER entrance , safely helped pt transfer from the W/C to the car in the passenger seat and the family member drove.
[2019-11-05] MEDS ORDERED: Miralax 17gm pkt ORAL SCH (21:00)
--- NOTE | 2019-11-06 04:30 | Progress Note ---
DATE: 11/05/2019 SUBJECTIVE: The patient is doing well. Compliant with medication. No behavior issues noted. The patient is being discharged today 11/05/2019. MENTAL STATUS EXAMINATION: The patient is alert and oriented times self, place, and situation. Mood is neutral. Affect is constricted. Congruent with mood. Thought process is concrete. Thought content, no suicidal or homicidal ideation. ASSESSMENT: Stable. PLAN: 1. We will continue current medications. 2. Provide the patient with reality orientation and supportive therapy. Cher Rollins M.D. DR: STEPH JOB#: [id number] CC:
== END 2019-11-05 20:15 | disposition home health service (06) | DRG 438 ==
LOC: EDBD 14:59 → EMR 16:31 → 2W 17:08 → EDBEDREQ 17:47 → EDBEDREQSVC 17:47 → EDBEDREQ 18:49 → 2W 20:42 → 3E 11-03 16:00
DX: K85.90 Acute pancreatitis without necrosis or infection, unspecified (principal); J96.01 Acute respiratory failure with hypoxia; G92 Toxic encephalopathy; J96.21 Acute and chronic respiratory failure with hypoxia; I62.01 Nontraumatic acute subdural hemorrhage; N13.30 Unspecified hydronephrosis; N17.9 Acute kidney failure, unspecified; Z68.43 Body mass index [BMI] 50.0-59.9, adult; N31.9 Neuromuscular dysfunction of bladder, unspecified; Z86.718 Personal history of other venous thrombosis and embolism; Z95.828 Presence of other vascular implants and grafts; F32.9 Major depressive disorder, single episode, unspecified; F41.9 Anxiety disorder, unspecified; J44.9 Chronic obstructive pulmonary disease, unspecified; N28.1 Cyst of kidney, acquired; E03.9 Hypothyroidism, unspecified; E66.01 Morbid (severe) obesity due to excess calories; R07.81 Pleurodynia
CPT/HCPCS: 36415; 70360; 70450; 71045; 71275; 74177; 76700; 76830; 80048; 80053; 80061; 81003; 82150; 82962; 83036; 83690; 83735; 83880; 84100; 84443; 84484; 85025; 85379; 86710; 87040; 93005; 93306; 93970; 94640; 96361; 96365; 96375; 99285; J1815; J2405; J7030; J7620